=== PATIENT | female | born 1955 | race Hispanic/Latino ===

== ENCOUNTER 2020-05-07 07:40 | Inpatient (IN) | payer OTHER ==
[2020-05-07] MEDS ORDERED: Azithromycin 500 MG VIAL ONE ×2 (08:01→08:07)
[2020-05-07] MEDS ORDERED: Dexamethasone 10 MG/ML VIAL ONE (08:01)
[2020-05-07] MEDS ORDERED: Acetaminophen 500 MG TAB ONE (08:01)
[2020-05-07] MEDS ORDERED: Enoxaparin Sodium 30 MG/0.3 ML SYRINGE ONE (08:10)
[2020-05-07] MEDS ORDERED: Enoxaparin Sodium 40 MG/0.4 ML SYRINGE ONE (08:10)
[2020-05-07 08:11] LABS: #Eosinphils 0.1 thou/uL (0.0-0.7); #Lymphocytes 0.9 thou/uL (1.20-3.40); #Monocytes 0.7 thou/uL (0.11-0.59); %Basophils 0.2 % (0.0-1.0); %Lymphocytes 6.3 % (21.0-51.0); %Monocytes 4.8 % (0.0-10.0); %Neutrophils 87.6 % (42.0-75.0); Hemoglobin 12.6 g/dL (12.0-16.0); Mean Corpuscular HGB CONC 31.8 g/dL (32.0-36.0); Mean Corpuscular Hemoglobin 29.1 pg (27.0-31.0); Mean Corpuscular Volume 91.4 fL (78.0-98.0); Mean Platelet Volume 7.9 fL (7.4-10.4); Platelet Count 294 thou/uL (130-400); RBC Distribution Width 12.7 % (11.5-14.5); Red Blood Cell (RBC) Count 4.33 mill/uL (4.20-5.40); White Blood Cell (WBC) Count 13.7 thou/uL (4.8-10.8)
[2020-05-07 08:18] LABS: INR-International Normal Ratio 1.1; Prothrombin Time 14.4 sec (12.0-14.7)
[2020-05-07 08:34] LABS: ALT (SGPT) 22 U/L (8-55); AST (SGOT) 29 U/L (5-34); Albumin 3.2 g/dL (3.4-4.8); Alkaline Phosphatase 109 U/L (40-110); Anion Gap 18 mmol/L (10-20); BUN (Urea Nitrogen) 8 mg/dL (9.8-20.1); Bilirubin, Total 0.7 mg/dL (0.2-1.2); Calc. Creatinine Clearance 0 mL/min (70-130); Calcium 8.9 mg/dL (7.8-10.44); Carbon Dioxide 21 mmol/L (23-31); Chloride 101 mmol/L (98-107); Estimated GFR-MDRD 60; Globulin 4.8 g/dL (2.4-3.5); Glucose 284 mg/dL (80-115); Potassium 4.4 mmol/L (3.5-5.1); Sodium 136 mmol/L (136-145)
--- NOTE | 2020-05-07 08:38 | RAD ---
RADIOGRAPH CHEST 1 VIEW: DATE: 05/07/2020 TIME: 8:32 AM HISTORY: 64 year-old: Positive female presents with dyspnea COMPARISON: 12/04/2017 FINDINGS: New finding of heterogeneously diffuse severe bilateral mixed alveolar and interstitial infiltrates, mostly alveolar. No pneumothorax. IMPRESSION: Severe bilateral pneumonia
[2020-05-07 08:41] LABS: Actual Bicarbonate (HCO3a) 21.8 mEq/L (22-28); Analyzer IN Cardio ER; Base Excess (BEa) -2.5 mEq/L (-2.0 to +3.0); CO2 Tension 35.8 mmHg (35.0-45.0); Calcium, Ionized (arterial) 1.08 mmol/L (1.12-1.30); Carboxyhemoglobin (COHb) 0.3 gm% (0.0-3.0); Hemoglobin (Hb) 11.9 g/dL (12.0-16.0); Potassium - ABG Lab 4.15 mmol/L (3.70-5.30)
[2020-05-07 08:42] LABS: Puncture Site RBA
[2020-05-07] MEDS ORDERED: cefTRIAXone\\ROCEPHIN 1 GM VIAL ONE (09:31)
--- NOTE | 2020-05-07 09:44 | PDOC.HHP ---
Hospitalist HPI - History of Present Illness Fever, shortness of breath History of Present Illness: This is a 64-year-old female patient with no significant past medical history presenting with shortness of breath and fever. 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 She however had hoarseness in the voice and difficulty speaking so I could not get much history. Most of the history was taken from the notes and information from the nurse. She was diagnosed with COVID about a week ago however it appears a family was reluctant to get her to come to the hospital. However how she became more sick with shortness of breath eventually activated EMS and she was brought in for further evaluation. At presentation BP 213/115, pulse 151, respiration rate 45, temperature 99.1 saturating at 90 on 4 L. COVID was +3 days prior to presentation. Although initial chest x-ray was consistent with COVID with bilateral pneumonia. Concerns for possible PE re sulted in a CTA which was negative for any pulmonary embolism ABGpH 7.4, PO2 50, PCO2 35.8. BNP was 134, glucose 284, troponin 0 0.01, CRP 27.7, ESR 105, WBC 13.7, In the ED she was given Tylenol, dexamethasone 10 mg, azithromycin, enoxaparin, and ceftriaxone. Hospitalist team was consulted for admission. Hospitalist ROS - Review of Systems Respiratory: reports: cough, shortness of breath Other: Review of systems limited on account of patient having difficulty speaking. - Medication Medications: Kindly refer to ambulatory medication list Allergies: No known drug allergies Hospitalist History - Past Medical History Cardiac: reports: HTN Endocrine: reports: Diabetes - Social History Living Situation: With Family - Exam General Appearance: awake alert Heart: RRR, no murmur, no rubs, normal peripheral pulses Respiratory - other findings: Coarse breath sounds bilaterally. Gastrointestinal: soft, non-tender, non-distended, normal bowel sounds Extremities: no cyanosis, no clubbing, no edema Neurological: cranial nerve grossly intact, no weakness Psychiatric: A&O x 3 Hospitalist Results - Labs Result Diagrams: 05/13/20 03:14 05/13/20 03:14 Lab results: WBC 13.7 thou/uL (4.8-10.8) H 05/07/20 08:01 Hgb 12.6 g/dL (12.0-16.0) 05/07/20 08: Hct 39.6 % (36.0-47.0) 05/07/20 08: MCV 91.4 fL (78.0-98.0) 05/07/20 08: Plt Count 294 thou/uL (130-400) 05/07/20 08: Neutrophils % 87.6 % (42.0-75.0) H 05/07/20 08: ESR Westergren 105 mm/hr (Less than 30) H 05/07/20 08: ABG pH 7.40 (7.35-7.45) 05/07/20: ABG pCO2 35.8 mmHg (35.0-45.0) 05/07/20: ABG pO2 50.0 mmHg (> 80.0) L* 05/07/20 08:20 Sodium 136 mmol/L (136-145) 05/07/20 08: Potassium 4.4 mmol/L (3.5-5.1) 05/07/20 08: Chloride 101 mmol/L (98-107) 05/07/20 08: Carbon Dioxide 21 mmol/L (23-31) L 05/07/20 08:01 BUN 8 mg/dL (9.8-20.1) L 05/07/20 08:01 Creatinine 0.93 mg/dL (0.6-1.1) 05/07/20 08: Glucose 284 mg/dL (80-115) H 05/07/20 08:01 Calcium 8.9 mg/dL (7.8-10.44) 05/07/20 08: Total Bilirubin 0.7 mg/dL (0.2-1.2) 05/07/20 08: AST 29 U/L (5-34) 05/07/20 08:01 ALT 22 U/L (8-55) 05/07/20 08: Alkaline Phosphatase 109 U/L (40-110) 05/07/20 08:01 Troponin I 0.010 ng/mL (< 0.028) 05/07/20 08: C-Reactive Protein 27.76 mg/dL (= or < 0.5) H 05/07/20 08: B-Natriuretic Peptide 138.4 pg/mL (0-100) H 05/07/20 08:01 Serum Total Protein 8.0 g/dL (6.0-8.3) 05/07/20 08:01 Albumin 3.2 g/dL (3.4-4.8) L 05/07/20 08:01 Hospitalist H&P A/P - Plan Plan: 64-year-old female patient presenting with fever shortness of breath 3 days of therapy and tested positive for COVID. Given her increased oxygen requirement she was admitted to IMCU for closer monitoring. Acute hypoxic respiratory failure Secondary to cover pneumonia Received dexamethasonewe will continue Antibiotics was also continued for now Would require him to severe and continuing anticoagulation Consult pulmonology. Sepsis Secondary to COVID/pneumonia Lactate 3.5, leukocytosis 13.7, tachypnea and tachycardia She received a liter of normal saline in the ED We will continue gentle hydration given concerns for pulmonary congestion to worsen respiratory symptoms. We will continue antibiotics Trend lactic acid Blood cultures. Hypertensive urgency. Systolic blood pressure presentation was above 200. At my assessment around 170s. It is unclear what medication she is on at the moment. We will start on amlodipine PRN labetalol BP monitoring. VT prophylaxistherapeutic on
--- NOTE | 2020-05-07 10:39 | CT ---
CT ANGIOGRAM THORAX WITH CONTRAST: (CTA pulmonary angiogram) DATE: 05/07/2020 HISTORY: 64-year-old COVID-19 positive female presents with dyspnea and fever TECHNIQUE: IV injection of iodinated contrast. Scan acquisition timing attempted to coincide with iodinated contrast bolus reaching maximal density in pulmonary arteries. 3-D MIP reconstructions. FINDINGS: Severe, very extensive groundglass, mosaic, crazy paving, and consolidative infiltrates throughout bi lateral upper lobes, lower lobes, and middle lobe. Portions of bilateral upper lobes, right middle lobe, and small upper portion of superior segment of left lower lobe, are relatively spared. Otherwise, the rest of the lungs are severely diffusely involved. Trachea and bilateral mainstem bronchi are patent and clear. No pulmonary thromboembolism is identified. No thoracic aortic aneurysm or dissection. No pericardial effusion, pleural effusion, or pneumothorax. Multiple noncalcified mildly enlarged mediastinal lymph nodes. Bridging osteophytes throughout the visualized portions of lower cervical spine and much of thoracic spine, consistent with DISH. No compression fracture identified. IMPRESSION: 1) very extensive, severe bilateral infiltrates: Evidence for severe COVID-19 pneumonia. 2) no evidence of pulmonary thromboembolism.
[2020-05-07] MEDS ORDERED: Ondansetron ODT 4 MG TAB PO PRN (10:48)
[2020-05-07] MEDS ORDERED: Ondansetron PF 4 MG/2 ML Vial IVP PRN (10:48)
[2020-05-07] MEDS ORDERED: Rocuronium Bromide 10 MG/ML (10ML VIAL) ONE (11:58)
[2020-05-07] MEDS ORDERED: Iopamidol-370 76% 500 ML 1 ML ONE (13:33)
[2020-05-07] MEDS ORDERED: Magnesium 2 GM/50 ML 2 GM in Premix Bag 1 BAG IVPB SCH (14:30)
[2020-05-07] MEDS ORDERED: Diltiazem HCl 125 MG, Admixture Fee 1 EACH in Sodium Chloride 0.9% 100 ML IVPB SCH (14:30)
[2020-05-07] MEDS: Labetalol HCl 100 MG/20 ML VIAL SLOW IVP PRN ×2 (14:46→23:21)
[2020-05-07] MEDS ORDERED: REMDESIVIR (EUA) 200 MG in Sodium Chloride 0.9% 250 ML 210 ML IV SCH (17:00)
--- NOTE | 2020-05-07 17:29 | CON ---
DATE OF CONSULTATION: HISTORY OF PRESENT ILLNESS: This is a 64-year-old [place] female, who has a farooq positive test done about a week ago. She has been quarantined at home. She works at [employer], but because of the virus, she is staying at home. She then developed last night increasing shortness of breath, cough, fever, and chills. I spoke to the daughter at length, the patient speaks only [place]an. She is brought to the ER where x-ray shows diffuse pulmonary infiltrates. CAT scan confirmed the extensive pulmonary infiltrates as outlined. PAST MEDICAL HISTORY: Pertinent mainly for diabetes, hypertension. PREVIOUS SURGERIES: None. CHRONIC MEDICATIONS: From home, unknown at this time. ALLERGIES: NONE. REVIEW OF SYSTEMS: Otherwise, negative. PHYSICAL EXAMINATION: VITAL SIGNS: Sats are 100% on high-flow 40 L, pulse 80, blood pressure 130/80, and respiratory rate 18. CHEST: Bilateral rhonchi and crackles. CARDIAC: Sinus tach. ABDOMEN: Soft. NEUROLOGIC: She is alert, awake, and responsive. LABORATORY DATA: D-dimer is 20. PO2 was 50, pCO2 . Glucose 284. Lactic acid 3.5. BNP is normal. C-reactive protein is 27. Ferritin level pending. IMPRESSION: Respiratory failure, acute respiratory distress syndrome, farooq positive pneumonia, diabetes, possibly asthma. She takes an inhaler at home. I have restarted antibiotics, steroids, convalescent plasma, and remdesivir, as per the protocol. Prognosis is usually remains guarded. Lovenox as prescribed. Consultation note, 70 minutes, 50% direct patient care. Job ID: [id number]
[2020-05-07] MEDS: methylPREDNISolone Sod Succ 40 MG VIAL IVP SCH ×2 (17:44→23:11)
[2020-05-07] MEDS: Mometasone 200 MCG/Formoterol 5 MCG 120 PUFF INHALER INH SCH (20:14)
[2020-05-07] MEDS: Enoxaparin Sodium 80 MG/0.8 ML SYRINGE SC SCH (20:15)
[2020-05-07] MEDS: PROVENTIL INHALER 6.7 G (200 INHALATIONS) INH SCH (20:15)
[2020-05-07] MEDS: Famotidine/PF 20 mg/2ml Vial SLOW IVP SCH (20:16)
[2020-05-07] MEDS: Cefepime 1 GM in Sodium Chloride 0.9% 100 ML IVPB SCH (20:18)
[2020-05-07] MEDS: Acetaminophen 325 MG TAB PO PRN ×2 (20:18→23:37)
[2020-05-07] MEDS: HumaLOG 300 UNITS/3 ML VIAL SC PRN (20:20)
[2020-05-08] MEDS: PROVENTIL INHALER 6.7 G (200 INHALATIONS) INH SCH ×4 (01:51→18:28)
[2020-05-08] MEDS ORDERED: traMADol HCl 50 MG TAB PO SCH (03:00)
[2020-05-08 04:29] LABS: ALT (SGPT) 23 U/L (8-55); AST (SGOT) 32 U/L (5-34); Alkaline Phosphatase 104 U/L (40-110); Anion Gap 15 mmol/L (10-20); BUN (Urea Nitrogen) 15 mg/dL (9.8-20.1); Bilirubin, Total 0.4 mg/dL (0.2-1.2); Calc. Creatinine Clearance 63 mL/min (70-130); Calcium 8.2 mg/dL (7.8-10.44); Carbon Dioxide 20 mmol/L (23-31); Chloride 105 mmol/L (98-107); Estimated GFR-MDRD 57; Globulin 4.4 g/dL (2.4-3.5); Glucose 398 mg/dL (80-115); Potassium 4.1 mmol/L (3.5-5.1); Protein, Total 7.4 g/dL (6.0-8.3); Sodium 136 mmol/L (136-145)
[2020-05-08] MEDS: methylPREDNISolone Sod Succ 40 MG VIAL IVP SCH ×4 (06:01→23:33)
[2020-05-08] MEDS: Mometasone 200 MCG/Formoterol 5 MCG 120 PUFF INHALER INH SCH ×2 (06:04→18:28)
[2020-05-08] MEDS: HumaLOG 300 UNITS/3 ML VIAL SC PRN ×4 (06:05→20:08)
[2020-05-08] MEDS ORDERED: FLU VACC QS2020-21(65YR UP)/PF 240 MCG/0.7 ML SYRINGE IM ONE (09:00)
--- NOTE | 2020-05-08 09:17 | RAD ---
PORTABLE CHEST: HISTORY: CCU followup. Pneumonia. COMPARISON: 05/07/2020. FINDINGS: There are rather diffuse bilateral infiltrates. These do not appear significantly changed in appeara nce or extent. Loss of lung markings in the left apex of uncertain significance. Left pneumothorax is not excluded, although a definite pleural is not seen and this may be artifactual. Suggest close followup. IMPRESSION: Diffuse bilateral infiltrates are again noted without significant interval change. Lucency in the le ft apex is seen and small left apical pneumothorax is not excluded, although not confirmed. Followup recommended. Findings related to patient's nurse in the IMCU by phone at time of dictation. CODE CR POS: OFF
[2020-05-08] MEDS: Azithromycin 500 MG in Sodium Chloride 0.9% 250 ML 250 ML IVPB SCH (09:49)
[2020-05-08] MEDS: Enoxaparin Sodium 80 MG/0.8 ML SYRINGE SC SCH ×2 (09:50→20:12)
[2020-05-08] MEDS: Cefepime 1 GM in Sodium Chloride 0.9% 100 ML IVPB SCH ×2 (09:50→20:11)
[2020-05-08] MEDS: Famotidine/PF 20 mg/2ml Vial SLOW IVP SCH ×2 (09:50→20:10)
[2020-05-08] MEDS: Labetalol HCl 100 MG/20 ML VIAL SLOW IVP PRN ×5 (09:51→23:33)
--- NOTE | 2020-05-08 10:42 | PRG ---
DATE OF SERVICE: 05/08/2020 SUBJECTIVE: Awake, alert, responsive. OBJECTIVE: VITAL SIGNS: Pulse 88, blood pressure 179/88. At 90% FiO2, 60 L, saturations are 90% to 93%. CHEST: Bilateral rhonchi and crackles. CARDIAC: Normal S1, S2. No gallops. ABDOMEN: No masses. LABORATORY DATA: Unremarkable. IMPRESSION: 1. Respiratory failure, acute respiratory distress syndrome secondary farooq positive pneumonia. 2. Diabetes. PLAN: She is on remdesivir. She has convalescent plasma on board. X-ray still shows bilateral infiltrates, though clearly no worse. We will follow. Job ID: [id number]
--- NOTE | 2020-05-08 15:22 | PDOC.HOSPP ---
- Objective Vital Signs & Weight: Vital Signs (12 hours) Temp Pulse BP Pulse Ox 05/08/20 15:17 88 181/98 H 05/08/20 12:18 88 191/99 H 05/08/20 11:33 98.5 F 05/08/20 09:51 88 179/89 H 05/08/20 08:32 98.1 F 05/08/20 07:49 96 05/08/20 03:53 97.1 F L Weight Weight 156 lb Most Recent Monitor Data Heart Rate from ECG 83 NIBP 160/86 NIBP BP-Mean 110 Respiration from ECG 31 SpO2 90 I&O: 05/07/20 05/08/20 05/09/20 06:59 06:59 06:59 Intake Total 1870 Output Total 700 Balance 1170 Result Diagrams: 05/07/20 08:01 05/08/20 03:35 Additional Labs: Accuchecks 05/08/20 05/08/20 05/07/20 10:57 06:17 20:30 POC Glucose 312 H 369 H 311 H Hospitalist ROS - Medication Medications: Active Medications Generic Name Dose Route Start Last Admin Trade Name Freq PRN Reason Stop Dose Admin Acetaminophen 650 mg 05/07/20 19:41 05/07/20 23:37 Acetaminophen 325 Mg Tab PO 650 mg Q4H PRN Administration Headache/Fever or Pain Albuterol Sulfate 2 puff 05/07/20 19:00 05/08/20 15:03 Proventil Inhaler 6.7 G (200 Inhalations) INH 2 puff [id number] [place] Administration Enoxaparin Sodium 70 mg 05/07/20 21:00 05/08/20 09:50 Enoxaparin Sodium 80 Mg/0.8 Ml Syringe SC 70 mg 0900,2100 [place] Administration Famotidine 20 mg 05/07/20 21:00 05/08/20 09:50 Famotidine/Pf 20 Mg/2ml Vial SLOW IVP 20 mg BID [place] Administration Cefepime HCl 1 gm/ Sodium 100 mls @ 200 mls/hr 05/07/20 21:00 05/08/20 09:50 Chloride IVPB 100 mls Q12HR [place] Administration Azithromycin 500 mg/ Sodium 250 mls @ 250 mls/hr 05/08/20 08:00 05/08/20 09:49 Chloride IVPB 250 mls 0800 [place] Administration Ascorbic Acid 1,500 mg/ Sodium 53 mls @ 100 mls/hr 05/07/20 18:00 05/08/20 12:24 Chloride IVPB 05/11/20 18:01 53 mls Q6HR [place] Administration Diltiazem HCl 125 mg/ 125 mls @ 0 mls/hr 05/07/20 14:30 05/07/20 14:29 Miscellaneous Medication 1 IVPB 125 mls each/ Sodium Chloride INF [place] Administration Protocol As Directed Insulin Human Lispro 0 units 05/07/20 20:06 05/08/20 12:20 Humalog 300 Units/3 Ml Vial SC 5 unit .MILD SLIDING SCALE PRN Administration Mild Correctional Scale Insulin Human Lispro 0 units 05/07/20 20:06 05/07/20 20:20 Humalog 300 Units/3 Ml Vial SC 4 unit .BEDTIME SLIDING SC PRN Administration Bedtime Correctional Scale Labetalol HCl 10 mg 05/07/20 10:55 05/08/20 15:17 Labetalol Hcl 100 Mg/20 Ml Vial SLOW IVP 10 mg Q4H PRN Administration SBP Greater Than 180 Methylprednisolone Sodium Succinate 40 mg 05/07/20 18:00 05/08/20 12:24 Methylprednisolone Sod Succ 40 Mg Vial IVP 40 mg Q6HR [place] Administration Mometasone Furoate/Formoterol Fumar 2 puff 05/07/20 18:30 05/08/20 06:04 Mometasone 200 Mcg/Formoterol 5 Mcg 120 Puff Inhaler INH 2 puff BID-RT [place] Administration
[2020-05-08] MEDS: Acetaminophen 325 MG TAB PO PRN ×2 (15:35→20:10)
--- NOTE | 2020-05-08 15:45 | PDOC.HOSPP ---
- Subjective Subjective: Patient was seen examined at bedside. Patient remains on high flow. Patient status post convalescent plasma, she is on remdesivir. - Objective Vital Signs & Weight: Vital Signs (12 hours) Temp Pulse BP Pulse Ox 05/08/20 15:17 88 181/98 H 05/08/20 12:18 88 191/99 H 05/08/20 11:33 98.5 F 05/08/20 09:51 88 179/89 H 05/08/20 08:32 98.1 F 05/08/20 07:49 96 05/08/20 03:53 97.1 F L Weight Weight 156 lb Most Recent Monitor Data Heart Rate from ECG 83 NIBP 160/86 NIBP BP-Mean 110 Respiration from ECG 31 SpO2 90 I&O: 05/07/20 05/08/20 05/09/20 06:59 06:59 06:59 Intake Total 1870 Output Total 700 Balance 1170 Result Diagrams: 05/07/20 08:01 05/08/20 03:35 Additional Labs: Accuchecks 05/08/20 05/08/20 05/07/20 10:57 06:17 20:30 POC Glucose 312 H 369 H 311 H Radiology Reviewed by me: Yes EKG Reviewed by me: Yes Hospitalist ROS - Medication Medications: Active Medications Generic Name Dose Route Start Last Admin Trade Name Freq PRN Reason Stop Dose Admin Acetaminophen 650 mg 05/07/20 19:41 05/08/20 15:35 Acetaminophen 325 Mg Tab PO 650 mg Q4H PRN Administration Headache/Fever or Pain Albuterol Sulfate 2 puff 05/07/20 19:00 05/08/20 15:03 Proventil Inhaler 6.7 G (200 Inhalations) INH 2 puff [id number] [place] Administration Enoxaparin Sodium 70 mg 05/07/20 21:00 05/08/20 09:50 Enoxaparin Sodium 80 Mg/0.8 Ml Syringe SC 70 mg 0900,2100 [place] Administration Famotidine 20 mg 05/07/20 21:00 05/08/20 09:50 Famotidine/Pf 20 Mg/2ml Vial SLOW IVP 20 mg BID [place] Administration Cefepime HCl 1 gm/ Sodium 100 mls @ 200 mls/hr 05/07/20 21:00 05/08/20 09:50 Chloride IVPB 100 mls Q12HR [place] Administration Azithromycin 500 mg/ Sodium 250 mls @ 250 mls/hr 05/08/20 08:00 05/08/20 09:49 Chloride IVPB 250 mls 0800 [place] Administration Ascorbic Acid 1,500 mg/ Sodium 53 mls @ 100 mls/hr 05/07/20 18:00 05/08/20 12:24 Chloride IVPB 05/11/20 18:01 53 mls Q6HR [place] Administration Diltiazem HCl 125 mg/ 125 mls @ 0 mls/hr 05/07/20 14:30 05/07/20 14:29 Miscellaneous Medication 1 IVPB 125 mls each/ Sodium Chloride INF [place] Administration Protocol As Directed Insulin Human Lispro 0 units 05/07/20 20:06 05/08/20 12:20 Humalog 300 Units/3 Ml Vial SC 5 unit .MILD SLIDING SCALE PRN Administration Mild Correctional Scale Insulin Human Lispro 0 units 05/07/20 20:06 05/07/20 20:20 Humalog 300 Units/3 Ml Vial SC 4 unit .BEDTIME SLIDING SC PRN Administration Bedtime Correctional Scale Labetalol HCl 10 mg 05/07/20 10:55 05/08/20 15:17 Labetalol Hcl 100 Mg/20 Ml Vial SLOW IVP 10 mg Q4H PRN Administration SBP Greater Than 180 Methylprednisolone Sodium Succinate 40 mg 05/07/20 18:00 05/08/20 12:24 Methylprednisolone Sod Succ 40 Mg Vial IVP 40 mg Q6HR [place] Administration Mometasone Furoate/Formoterol Fumar 2 puff 05/07/20 18:30 05/08/20 06:04 Mometasone 200 Mcg/Formoterol 5 Mcg 120 Puff Inhaler INH 2 puff BID-RT [place] Administration - Exam General Appearance: NAD Eye: PERRL ENT: normocephalic atraumatic Neck: supple Heart: RRR Respiratory: rhonchi Gastrointestinal: soft Skin: normal turgor Musculoskeletal: normal tone Psychiatric: normal affect, normal behavior, A&O x 3 Hosp A/P - Plan This is a 64 years old pleasant female, who has significant past medical history of diabetes type 2, hypertension, who was diagnosed with Covid about weeks ago presented to the ED with worsening dyspnea and hypoxia Acute hypoxicrespiratory failure-secondary to COVID-19 --cont HiFlo, wean as tolerated --cont empiric IV abx, steroid. Remdesivir. Status post convalescent plasma --Supportive care, appreciate pulmonology input COVID-19 pneumonia --Management as above Sepsis, present on admission --Secondary to Covid pneumonia --Continue IV antibiotic, follow blood culture Diabetes type 2 --cont Glipizide. Hold Metformin --add Lantus bedtime, ISS Hypertensive urgency --cont Ramipril, add Coreg for BP and rate control --prn Vasotec and Labetalol prn (shortage on hydralazine) Dyslipidemia --resume statin Transient episode of SVT --resolved. d/t above. Add Coreg for rate controlled DVT ppx: Lovenox therapeutic GI ppx: Pepcid Code Status: Full code Anticipated Dispo: Home when medically stable.
[2020-05-08] MEDS ORDERED: ALPRAZolam 0.25 MG TAB PO PRN (15:46)
[2020-05-08] MEDS ORDERED: Enalaprilat Dihydrate 2.5 MG in Dextrose 5% in Water 50 ML IVPB PRN (16:11)
[2020-05-08] MEDS: REMDESIVIR (EUA) 100 MG in Sodium Chloride 0.9% 250 ML 230 ML IV SCH (17:15)
[2020-05-08] MEDS: Carvedilol 6.25 MG TAB PO SCH (17:17)
--- NOTE | 2020-05-08 19:27 | CON ---
DATE OF CONSULTATION: HISTORY: Bhakti Watts is a 64-year-old female, [place]ian-speaking only, who currently is in COVID isolation. She was apparently diagnosed as having COVID a week ago and had continued increased problems with shortness of breath, but the family was very reluctant to bring her to the hospital. Eventually, EMS was called and on arrival her blood pressure was 213/115, pulse was 151, respirations 45, and O2 saturation of 90% on 4 L. Chest x-ray showed bilateral pneumonia. In looking at her vital signs in the emergency room, she was treated with increasing amounts of oxygen. Her heart rate gradually slowed. There was no abrupt decrease in her heart rate. In the emergency room, she was given dexamethasone, azithromycin, enoxaparin, and ceftriaxone. She underwent chest CTA which was negative for pulmonary embolism. PAST MEDICAL HISTORY: Diabetes, anxiety, hypercholesterolemia, and hypertension. MEDICATIONS: 1. Alprazolam 0.25 b.i.d. p.r.n. 2. Aspirin 81 daily. 3. Atorvastatin daily. 4. Glipizide 1 tablet b.i.d. 5. Metformin 1000 mg b.i.d. 6. Naproxen 500 mg q.12 hours. 7. Nitrofurantoin q.8 hours. 8. Accupril daily. PHYSICAL EXAMINATION: VITAL SIGNS: Blood pressure 160/86; pulse of 83, sinus rhythm on the monitor. Physical examination was deferred due to COVID positive. LABORATORY: EKG-initial EKG revealed sinus tachycardia. There is an incomplete right bundle-branch block. White count 13,700, hemoglobin 12.6, hematocrit 39.6, and platelets 294,000. D-dimer greater than 20.0. PH 7.40, pCO2 of 35.8, and PO2 of 50.0. Sodium 136, potassium 4.1, chloride 105, carbon dioxide 20, BUN 15, creatinine 0.98, and glucose 398. Troponin I x1 is normal. Chest x-ray reveals bilateral lung infiltrates. IMPRESSION: 1. COVID with evidence of pneumonia and hypoxemia. 2. Probable sinus tachycardia at presentation. Even though this is somewhat of a high rate for someone of this age group, she was significantly hypoxic and hypertensive. In looking at her vital signs, there was gradual slowing of her heart rate without abrupt drop in heart rate that would be consistent with an arrhythmia that then converted. At the present time, she is in sinus rhythm. 3. Hypertension. 4. Diabetes. 5. Hypercholesterolemia. PLAN: At the present time, I do not feel any further cardiac evaluation is warranted, just to monitor her to watch her rate. Job ID: [id number]
[2020-05-08] MEDS: Insulin Glargine 20 UNITS in Pre-Filled Syringe 1 EACH SC SCH (20:07)
[2020-05-08] MEDS: Atorvastatin Calcium 10 MG TAB PO SCH (20:11)
[2020-05-08 22:53] LABS: Actual Bicarbonate (HCO3a) 23.4 mEq/L (22-28); Base Excess (BEa) -1.4 mEq/L (-2.0 to +3.0); CO2 Tension 39.7 mmHg (35.0-45.0); Calcium, Ionized (arterial) 1.11 mmol/L (1.12-1.30); Carboxyhemoglobin (COHb) 0.2 gm% (0.0-3.0); pH, Arterial 7.39 (7.35-7.45)
[2020-05-08 22:57] LABS: ALV-art Gradient 556.175 mmHg (0-20); O2 Tension (PaO2), arterial 35.9 mmHg (> 80.0); Puncture Site RRA
[2020-05-08] MEDS ORDERED: Racepinephrine 2.25% 0.5 ML NEB ONE (23:39)
[2020-05-08] MEDS ORDERED: Ketorolac Tromethamine 30 MG/ML VIAL ONE (23:40)
[2020-05-08] MEDS ORDERED: Ketorolac Tromethamine 30 MG/ML VIAL IVP SCH (23:45)
[2020-05-09] MEDS: PROVENTIL INHALER 6.7 G (200 INHALATIONS) INH SCH ×4 (01:16→18:27)
[2020-05-09 04:14] LABS: #Monocytes 0.7 thou/uL (0.11-0.59); #Neutrophils 15.2 thou/uL (1.40-6.50); %Eosinophils 0.2 % (0.0-10.0); %Lymphocytes 5.7 % (21.0-51.0); Mean Corpuscular HGB CONC 32.1 g/dL (32.0-36.0); Mean Corpuscular Hemoglobin 29.4 pg (27.0-31.0); Mean Corpuscular Volume 91.5 fL (78.0-98.0); Mean Platelet Volume 8.4 fL (7.4-10.4); Platelet Count 299 thou/uL (130-400); Red Blood Cell (RBC) Count 3.73 mill/uL (4.20-5.40); White Blood Cell (WBC) Count 16.9 thou/uL (4.8-10.8)
[2020-05-09 04:23] LABS: Anion Gap 15 mmol/L (10-20); BUN (Urea Nitrogen) 26 mg/dL (9.8-20.1); CRP (Inflammatory) 13.29 mg/dL (= or < 0.5); Calc. Creatinine Clearance 75 mL/min (70-130); Calcium 7.8 mg/dL (7.8-10.44); Carbon Dioxide 20 mmol/L (23-31); Chloride 106 mmol/L (98-107); Estimated GFR-MDRD 70; Glucose 288 mg/dL (80-115); Potassium 5.2 mmol/L (3.5-5.1); Sodium 136 mmol/L (136-145)
[2020-05-09] MEDS: Labetalol HCl 100 MG/20 ML VIAL SLOW IVP PRN ×2 (04:36→07:30)
[2020-05-09] MEDS ORDERED: Albumin 25% 25 GM/100 ML BOT IVPB SCH (06:00)
--- NOTE | 2020-05-09 06:06 | PDOC.BPN ---
- Brief Progress Note Encounter Date: 05/09/20 Encounter Time: 05:13 Rapid response was called on the patient because patient became unresponsive and developed agonal breathing. Nurse also reported patient became severely hypertensive. She gave a dose of IV labetalol which caused her to develop bradycardia with heart rate in the 40s. Patient was initially placed on BiPAP due to worsening respiratory respiratory failure and desaturation. Patient seen with a systolic blood pressure of 230 and a heart rate of 137. She was intubated for agonal breathing after which her blood pressure dropped to systolic 80, heart rate still in the 120s. Patient given a bolus of 1 L normal saline. Diagnosis: Worsening respiratory failure. Cardiogenic and septic shock. Plan: Mechanical ventilation. Start albumin infusion. Check troponin. Post intubation chest x-ray reviewed, ET tube in good position. Formal chest x- ray results pending. Patient is on anticoagulation given severely elevated d-dimer. Dr. Madera informed. Critical care time: 64 minutes.
[2020-05-09] MEDS: HumaLOG 300 UNITS/3 ML VIAL SC PRN ×4 (06:12→20:57)
[2020-05-09] MEDS: Mometasone 200 MCG/Formoterol 5 MCG 120 PUFF INHALER INH SCH ×2 (07:10→18:30)
[2020-05-09 07:17] LABS: Actual Bicarbonate (HCO3a) 21.4 mEq/L (22-28); Base Excess (BEa) -5.1 mEq/L (-2.0 to +3.0); CO2 Tension 45.7 mmHg (35.0-45.0); Calcium, Ionized (arterial) 1.12 mmol/L (1.12-1.30); Carboxyhemoglobin (COHb) 0.3 gm% (0.0-3.0); Hemoglobin (Hb) 12.1 g/dL (12.0-16.0); O2 Tension (PaO2), arterial 152.3 mmHg (> 80.0); Potassium - ABG Lab 4.57 mmol/L (3.70-5.30); pH, Arterial 7.29 (7.35-7.45)
[2020-05-09 07:24] LABS: ALV-art Gradient 503.575 mmHg (0-20); Puncture Site RR
[2020-05-09] MEDS ORDERED: Azithromycin 250 MG TAB ONE (07:25)
[2020-05-09] MEDS: Propofol 1,000 MG/100 ML VIAL IV PRN (07:28)
[2020-05-09] MEDS: Carvedilol 6.25 MG TAB PO SCH ×3 (07:29→17:21)
[2020-05-09] MEDS: glipiZIDE 10 MG TAB PO SCH ×2 (07:29→16:04)
[2020-05-09] MEDS: methylPREDNISolone Sod Succ 40 MG VIAL IVP SCH ×3 (07:29→17:32)
[2020-05-09] MEDS ORDERED: Morphine 2 MG/ML VIAL SLOW IVP PRN (07:30)
[2020-05-09] MEDS ORDERED: Propofol BOLUS 1,000 MG/100 ML VIAL IV PRN (07:30)
[2020-05-09] MEDS ORDERED: Fentanyl BOLUS 250 ML IVPB PRN (07:30)
[2020-05-09] MEDS: Azithromycin 500 MG in Sodium Chloride 0.9% 250 ML 250 ML IVPB SCH (08:10)
--- NOTE | 2020-05-09 09:17 | RAD ---
CHEST 1 VIEW: Date: 05/09/2020 HISTORY: Dyspnea. COMPARISON: Radiograph from prior day. FINDINGS: Extensive air space opacities throughout the lungs. No pneumothorax. No significant effusion. Heart s ize is enlarged. IMPRESSION: Severe findings of COVID-19 pneumonia. POS: OFF
--- NOTE | 2020-05-09 09:29 | RAD ---
CHEST 1 VIEW: Date: 05/09/2020 HISTORY: Intubated patient. COMPARISON: Radiograph same date. FINDINGS: Patient intubated with endotracheal tube tip above the tomas 2.7 cm. Patchy air space opacities thro ughout the lungs. Enteric tube tip below diaphragm, although out of field of view. No pneumothorax. No significant effu julieta. IMPRESSION: Satisfactory location of the enteric and endotracheal tubes. POS: OFF
[2020-05-09] MEDS: Lorazepam 2 MG/ML VIAL SLOW IVP PRN (09:31)
[2020-05-09] MEDS: fentaNYL Citrate/PF 2,000 MCG in Sodium Chloride 0.9% 60 ML IV SCH (09:52)
[2020-05-09] MEDS: Lisinopril 20 MG TAB PO SCH (09:54)
[2020-05-09] MEDS: Aspirin 81 mg Enteric Coated Tablet PO SCH (09:54)
[2020-05-09] MEDS: Enoxaparin Sodium 80 MG/0.8 ML SYRINGE SC SCH ×2 (09:55→20:03)
[2020-05-09] MEDS: Cefepime 1 GM in Sodium Chloride 0.9% 100 ML IVPB SCH ×2 (09:55→20:04)
[2020-05-09] MEDS: Famotidine/PF 20 mg/2ml Vial SLOW IVP SCH ×2 (09:55→20:05)
[2020-05-09] MEDS: Vecuronium 10 MG VIAL IVP PRN ×3 (10:18→18:12)
--- NOTE | 2020-05-09 15:58 | PDOC.HOSPP ---
- Subjective Subjective: Overnight events noted. Patient was intubated earlier this morning. Patient was seen examined. Discussed with nursing staff. I also updated son, Ned on the phone. - Objective Vital Signs & Weight: Vital Signs (12 hours) Temp Pulse Resp BP Pulse Ox 05/09/20 13:30 67 127/70 05/09/20 12:00 24 H 05/09/20 10:38 106 H 05/09/20 09:54 216/111 H 05/09/20 09:00 97.0 F L 05/09/20 08:00 100 05/09/20 07:30 121 H 05/09/20 07:29 216/111 H 05/09/20 07:05 121 H 05/09/20 04:36 82 216/111 H 05/09/20 04:00 97.5 F L Weight Admit Weight 156 lb Weight 156 lb Most Recent Monitor Data Heart Rate from ECG 68 NIBP 119/63 NIBP BP-Mean 81 Respiration from ECG 24 SpO2 99 I&O: 05/08/20 05/09/20 05/10/20 06:59 06:59 06:59 Intake Total 1870 520 570 Output Total 700 850 360 Balance 1170 -330 210 Result Diagrams: 05/09/20 03:41 05/09/20 03:41 Additional Labs: Accuchecks 05/09/20 05/09/20 05/08/20 12:57 05:18 19:26 POC Glucose 263 H 265 H 307 H 05/08/20 16:46 POC Glucose 295 H Radiology Reviewed by me: Yes EKG Reviewed by me: Yes Hospitalist ROS - Medication Medications: Active Medications Generic Name Dose Route Start Last Admin Trade Name Freq PRN Reason Stop Dose Admin Acetaminophen 650 mg 05/07/20 19:41 05/08/20 20:10 Acetaminophen 325 Mg Tab PO 650 mg Q4H PRN Administration Headache/Fever or Pain Albuterol Sulfate 2 puff 05/07/20 19:00 05/09/20 13:29 Proventil Inhaler 6.7 G (200 Inhalations) INH 2 puff [id number] [place] Administration Alprazolam 0.25 mg 05/08/20 15:46 05/08/20 20:11 Alprazolam 0.25 Mg Tab PO 0.25 mg BIDPRN PRN Administration Anxiety Aspirin 81 mg 05/09/20 09:00 05/09/20 09:54 Aspirin 81 Mg Enteric Coated Tablet PO 81 mg DAILY [place] Administration Atorvastatin Calcium 10 mg 05/08/20 21:00 05/08/20 20:11 Atorvastatin Calcium 10 Mg Tab PO 10 mg HS [place] Administration Carvedilol 12.5 mg 05/09/20 08:00 05/09/20 09:54 Carvedilol 6.25 Mg Tab PO 6.25 mg BID-WM [place] Administration Enoxaparin Sodium 70 mg 05/07/20 21:00 05/09/20 09:55 Enoxaparin Sodium 80 Mg/0.8 Ml Syringe SC 70 mg 0900,2100 [place] Administration Famotidine 20 mg 05/07/20 21:00 05/09/20 09:55 Famotidine/Pf 20 Mg/2ml Vial SLOW IVP 20 mg BID [place] Administration Glipizide 10 mg 05/09/20 07:30 05/09/20 07:29 Glipizide 10 Mg Tab PO 10 mg BID-AC [place] Administration Cefepime HCl 1 gm/ Sodium 100 mls @ 200 mls/hr 05/07/20 21:00 05/09/20 09:55 Chloride IVPB 100 mls Q12HR [place] Administration Azithromycin 500 mg/ Sodium 250 mls @ 250 mls/hr 05/08/20 08:00 05/09/20 08:10 Chloride IVPB 250 mls 0800 [place] Administration Ascorbic Acid 1,500 mg/ Sodium 53 mls @ 100 mls/hr 05/07/20 18:00 05/09/20 13:41 Chloride IVPB 05/11/20 18:01 53 mls Q6HR [place] Administration Remdesivir 100 mg/ Sodium 250 mls @ 250 mls/hr 05/08/20 17:00 05/08/20 17:15 Chloride IV 05/11/20 17:59 250 mls Q24H [place] Administration Insulin Glargine 20 units/ 0.2 mls @ 0 mls/hr 05/08/20 21:00 05/08/20 20:07 Miscellaneous Medication SC 0.2 mls HS [place] Administration Fentanyl Citrate 2,000 mcg/ 100 mls @ 0 mls/hr 05/09/20 07:30 05/09/20 09:52 Sodium Chloride IV 11/12/20 07:30 100 mls INF [place] Administration Protocol Per Protocol Insulin Human Lispro 0 units 05/07/20 20:06 05/09/20 13:02 Humalog 300 Units/3 Ml Vial SC 4 unit .MILD SLIDING SCALE PRN Administration Mild Correctional Scale Insulin Human Lispro 0 units 05/07/20 20:06 05/08/20 20:08 Humalog 300 Units/3 Ml Vial SC 4 unit .BEDTIME SLIDING SC PRN Administration Bedtime Correctional Scale Labetalol HCl 10 mg 05/07/20 10:55 05/09/20 07:30 Labetalol Hcl 100 Mg/20 Ml Vial SLOW IVP 10 mg Q4H PRN Administration SBP Greater Than 180 Lisinopril 20 mg 05/09/20 09:00 05/09/20 09:54 Lisinopril 20 Mg Tab PO 20 mg DAILY [place] Administration Lorazepam 2 mg 05/09/20 07:30 05/09/20 09:31 Lorazepam 2 Mg/Ml Vial SLOW IVP 06/08/20 07:30 2 mg Q1H PRN Administration Breakthrough agitation Methylprednisolone Sodium Succinate 40 mg 05/07/20 18:00 05/09/20 13:03 Methylprednisolone Sod Succ 40 Mg Vial IVP 40 mg Q6HR [place] Administration Mometasone Furoate/Formoterol Fumar 2 puff 05/07/20 18:30 05/09/20 07:10 Mometasone 200 Mcg/Formoterol 5 Mcg 120 Puff Inhaler INH 2 puff BID-RT [place] Administration Propofol 1,000 mg 05/09/20 07:30 05/09/20 07:28 Propofol 1,000 Mg/100 Ml Vial IV 06/08/20 07:30 1,000 mg INF PRN Administration TO ACHIEVE GOAL RASS Protocol Sodium Chloride 10 ml 05/08/20 21:00 05/09/20 09:56 Flush - Normal Saline 10 Ml Syringe IVF 10 ml Q12HR [place] Administration Vecuronium [place] 10 mg 05/09/20 09:52 05/09/20 12:44 Vecuronium 10 Mg Vial IVP 10 mg Q1H PRN Administration PRONING/VENT COMPLIANCE - Exam General - other findings: intubated and sedated Eye: PERRL ENT: normocephalic atraumatic Neck: supple Heart: RRR Respiratory: rhonchi Gastrointestinal: soft Extremities: no cyanosis Skin: normal turgor Neurological - other findings: intubated and sedated Hosp A/P - Plan This is a 64 years old pleasant female, who has significant past medical history of diabetes type 2, hypertension, who was diagnosed with Covid- 19 about a week ago presented to the ED with worsening dyspnea and hypoxia Acute hypoxicrespiratory failure-secondary to COVID-19 --pt remains intubated --cont empiric IV abx, steroid. Remdesivir. Status post convalescent plasma --Supportive care, appreciate pulmonology input COVID-19 pneumonia --Management as above Sepsis, present on admission --Secondary to Covid pneumonia --Continue IV antibiotic, follow blood culture Diabetes type 2 --cont Glipizide. Hold Metformin --add Lantus bedtime, ISS Hypertensive urgency --cont Ramipril, add Coreg for BP and rate control --prn Vasotec and Labetalol prn (shortage on hydralazine) Dyslipidemia --resume statin Transient episode of SVT --resolved. d/t above. Add Coreg for rate controlled DVT ppx: Lovenox therapeutic GI ppx: Pepcid Code Status: Full code Anticipated Dispo: Home when medically stable. I updated pt's son, Ned on the phone daily.
[2020-05-09] MEDS: REMDESIVIR (EUA) 100 MG in Sodium Chloride 0.9% 250 ML 230 ML IV SCH (17:21)
[2020-05-09] MEDS: Insulin Glargine 20 UNITS in Pre-Filled Syringe 1 EACH SC SCH (20:03)
[2020-05-09] MEDS: Atorvastatin Calcium 10 MG TAB PO SCH (20:05)
--- NOTE | 2020-05-09 20:17 | PRG ---
DATE OF SERVICE: 05/09/2020 SUBJECTIVE: Ms. Watts was evaluated early this morning. Overnight, she became more hypoxic, required BiPAP and then required intubation. A code was called to facilitate rapid intubation. There was reportedly no loss of vital signs. Post intubation, she was in no distress. She required sedation as expected. She was initially hypertensive, but with initiation of sedation, she improved. OBJECTIVE: LUNGS: Remarkable for coarse breath sounds. HEART: Regular rhythm. ABDOMEN: Soft. LABORATORY DATA: White count 16.9, hemoglobin 11, platelets 299. Sodium 136, potassium 5.2, chloride 106, bicarb 20, BUN 26, creatinine 0.82. The pH is 7.29, pCO2 is 45, and pO2 is 152. IMPRESSION: 1. COVID pneumonia with respiratory failure requiring intubation. 2. Obesity. 3. Deconditioning. 4. Poorly-controlled diabetes. PLAN: Continue supportive care. CRITICAL CARE TIME: 30 minutes. Job ID: [id number]
[2020-05-10] MEDS: methylPREDNISolone Sod Succ 40 MG VIAL IVP SCH ×5 (00:15→23:25)
[2020-05-10] MEDS: PROVENTIL INHALER 6.7 G (200 INHALATIONS) INH SCH ×4 (01:22→18:39)
[2020-05-10 02:21] LABS: Troponin I 0.025 ng/mL (< 0.028)
[2020-05-10] MEDS: Vecuronium 10 MG VIAL IVP PRN ×4 (04:22→21:30)
[2020-05-10] MEDS: Propofol 1,000 MG/100 ML VIAL IV PRN ×3 (04:22→23:28)
[2020-05-10] MEDS: fentaNYL Citrate/PF 2,000 MCG in Sodium Chloride 0.9% 60 ML IV SCH (05:42)
[2020-05-10] MEDS: HumaLOG 300 UNITS/3 ML VIAL SC PRN ×5 (05:43→23:50)
[2020-05-10] MEDS: Mometasone 200 MCG/Formoterol 5 MCG 120 PUFF INHALER INH SCH ×2 (07:38→18:39)
[2020-05-10 07:51] LABS: Actual Bicarbonate (HCO3a) 23.5 mEq/L (22-28); Base Excess (BEa) 0.1 mEq/L (-2.0 to +3.0); CO2 Tension 33.6 mmHg (35.0-45.0); Calcium, Ionized (arterial) 1.06 mmol/L (1.12-1.30); Carboxyhemoglobin (COHb) 0.3 gm% (0.0-3.0); Hemoglobin (Hb) 10.7 g/dL (12.0-16.0); Potassium - ABG Lab 4.23 mmol/L (3.70-5.30); pH, Arterial 7.46 (7.35-7.45)
[2020-05-10 07:52] LABS: O2 Tension (PaO2), arterial 46.4 mmHg (> 80.0); Puncture Site RR
[2020-05-10] MEDS: glipiZIDE 10 MG TAB PO SCH ×2 (08:13→16:27)
--- NOTE | 2020-05-10 08:25 | RAD ---
Chest one view HISTORY: Intubated. Respiratory failure. Follow-up. COMPARISON: 05/09/2020. FINDINGS: Cardiac silhouette is magnified by projection. Pulmonary vasculature remains engorged. Mediastinum is midline. Lines and tubes unchanged in position. Blunting of the left lateral costophrenic angle is unchanged in appearance from the prior study. Patc hy ill-defined areas of groundglass opacity throughout each lung are similar less dense than on the previous exam. No evidence of pneumothorax. IMPRESSION : Slight interval radiographic improvement in patchy bilateral infiltrates. Small amount of left pleural fluid and other findings are otherwise stable.
[2020-05-10] MEDS: Famotidine/PF 20 mg/2ml Vial SLOW IVP SCH ×2 (08:30→20:38)
[2020-05-10] MEDS: Carvedilol 6.25 MG TAB PO SCH ×2 (08:30→17:08)
[2020-05-10] MEDS: Enoxaparin Sodium 80 MG/0.8 ML SYRINGE SC SCH ×2 (08:30→20:37)
[2020-05-10] MEDS: Lisinopril 20 MG TAB PO SCH (08:30)
[2020-05-10] MEDS: Cefepime 1 GM in Sodium Chloride 0.9% 100 ML IVPB SCH ×2 (08:30→20:37)
[2020-05-10] MEDS: Aspirin 81 mg Enteric Coated Tablet PO SCH (08:30)
[2020-05-10 08:31] LABS: Anion Gap 12 mmol/L (10-20); BUN (Urea Nitrogen) 34 mg/dL (9.8-20.1); CRP (Inflammatory) 11.41 mg/dL (= or < 0.5); Calc. Creatinine Clearance 62 mL/min (70-130); Calcium 7.4 mg/dL (7.8-10.44); Carbon Dioxide 23 mmol/L (23-31); Chloride 109 mmol/L (98-107); Estimated GFR-MDRD 56; Glucose 278 mg/dL (80-115); Hemoglobin 10.7 g/dL (12.0-16.0); Mean Corpuscular HGB CONC 32.1 g/dL (32.0-36.0); Mean Corpuscular Hemoglobin 29.5 pg (27.0-31.0); Mean Corpuscular Volume 92.1 fL (78.0-98.0); Mean Platelet Volume 8.6 fL (7.4-10.4); Platelet Count 296 thou/uL (130-400); Potassium 4.4 mmol/L (3.5-5.1); RBC Distribution Width 13.1 % (11.5-14.5); Red Blood Cell (RBC) Count 3.61 mill/uL (4.20-5.40); Sodium 140 mmol/L (136-145); White Blood Cell (WBC) Count 12.7 thou/uL (4.8-10.8)
[2020-05-10 08:36] LABS: Troponin I 0.028 ng/mL (< 0.028)
[2020-05-10 08:41] LABS: #Basophils 0.1 thou/uL (0.0-0.2); #Lymphocytes 0.9 thou/uL (1.20-3.40); #Monocytes 0.3 thou/uL (0.11-0.59); #Neutrophils 11.4 thou/uL (1.40-6.50); %Basophils 0.4 % (0.0-1.0); %Eosinophils 0.3 % (0.0-10.0); %Lymphocytes 7.1 % (21.0-51.0); %Monocytes 2.5 % (0.0-10.0); %Neutrophils 89.7 % (42.0-75.0); Band 4 % (5-11); Lymphocytes 2 % (21-51); MDiff Complete? YES; Metamyelocyte 1 % (0-0); Monocytes 2 % (0-10); Neutrophil 91 % (42-75); Nucleated RBC 1 % (0); Platelet Morphology Comment Appears Adequate; RBC Morphology Normal
[2020-05-10] MEDS: Azithromycin 500 MG in Sodium Chloride 0.9% 250 ML 250 ML IVPB SCH (09:00)
--- NOTE | 2020-05-10 09:13 | PRG ---
DATE OF SERVICE: 05/10/2020 SUBJECTIVE: This morning, intubated in the vent, sedated. OBJECTIVE: VITAL SIGNS: Temperature is 99, blood pressure 139/65, sats are 94% on 40%, PEEP of 10, respiratory rate 24. CHEST: Crackles. No wheezing. CARDIAC: Normal S1, S2. No gallops. ABDOMEN: Soft. LABORATORY DATA: White count 12,000, H and H 10 and 30, platelet count 296. PO2 is 46, [id number] ph 7.43 on rate of 24. peep10 fio2 40% IMPRESSION: Respiratory failure, acute respiratory distress syndrome, farooq positive pneumonia, and diabetes. PLAN: Vent is being adjusted. She is on remdesivir, antibiotics, steroids, supportive care. She is not weanable at this stage. One-half hour of critical care time. Job ID: [id number] MTDD
[2020-05-10 09:37] LABS: Troponin I 0.017 ng/mL (< 0.028)
[2020-05-10 14:40] LABS: ALT (SGPT) 47 U/L (8-55); AST (SGOT) 44 U/L (5-34); Albumin 2.5 g/dL (3.4-4.8); Alkaline Phosphatase 94 U/L (40-110); Bilirubin, Direct 0.3 mg/dL (0.1-0.3); Bilirubin, Total 0.5 mg/dL (0.2-1.2); Protein, Total 6.2 g/dL (6.0-8.3)
[2020-05-10 14:44] LABS: Troponin I 0.012 ng/mL (< 0.028)
--- NOTE | 2020-05-10 14:58 | PDOC.HOSPP ---
- Subjective Subjective: Pt is in prone position. Pul is following help with vent mgt. no significant changes - Objective Vital Signs & Weight: Vital Signs (12 hours) Temp Pulse Resp BP 05/10/20 13:25 57 L 148/73 H 05/10/20 12:00 20 05/10/20 11:00 98.0 F 05/10/20 10:27 68 99/60 05/10/20 10:00 20 05/10/20 08:30 135/65 05/10/20 08:00 98.6 F 24 H 05/10/20 07:39 62 146/69 H 05/10/20 06:00 24 H 05/10/20 04:27 66 05/10/20 04:00 99.1 F 24 H Weight Admit Weight 156 lb Weight 156 lb Most Recent Monitor Data Heart Rate from ECG 57 NIBP 148/73 NIBP BP-Mean 98 Respiration from ECG 20 SpO2 100 I&O: 05/09/20 05/10/20 05/11/20 06:59 06:59 06:59 Intake Total 520 1928.1 570 Output Total 850 998 365 Balance -330 930.1 205 Result Diagrams: 05/10/20 08:05 05/10/20 08:05 Additional Labs: Accuchecks 05/10/20 05/10/20 05/10/20 11:20 09:06 05:15 POC Glucose 270 H 258 H 243 H 05/09/20 05/09/20 20:23 17:40 POC Glucose 221 H 245 H Radiology Reviewed by me: Yes EKG Reviewed by me: Yes Hospitalist ROS - Medication Medications: Active Medications Generic Name Dose Route Start Last Admin Trade Name Freq PRN Reason Stop Dose Admin Acetaminophen 650 mg 05/07/20 19:41 05/08/20 20:10 Acetaminophen 325 Mg Tab PO 650 mg Q4H PRN Administration Headache/Fever or Pain Albuterol Sulfate 2 puff 05/07/20 19:00 05/10/20 13:24 Proventil Inhaler 6.7 G (200 Inhalations) INH 2 puff [id number] [place] Administration Alprazolam 0.25 mg 05/08/20 15:46 05/08/20 20:11 Alprazolam 0.25 Mg Tab PO 0.25 mg BIDPRN PRN Administration Anxiety Aspirin 81 mg 05/09/20 09:00 05/10/20 08:30 Aspirin 81 Mg Enteric Coated Tablet PO 81 mg DAILY [place] Administration Atorvastatin Calcium 10 mg 05/08/20 21:00 05/09/20 20:05 Atorvastatin Calcium 10 Mg Tab PO 10 mg HS [place] Administration Carvedilol 12.5 mg 05/09/20 08:00 05/10/20 08:30 Carvedilol 6.25 Mg Tab PO 12.5 mg BID-WM [place] Administration Enoxaparin Sodium 70 mg 05/07/20 21:00 05/10/20 08:30 Enoxaparin Sodium 80 Mg/0.8 Ml Syringe SC 70 mg 0900,2100 [place] Administration Famotidine 20 mg 05/07/20 21:00 05/10/20 08:30 Famotidine/Pf 20 Mg/2ml Vial SLOW IVP 20 mg BID [place] Administration Glipizide 10 mg 05/09/20 07:30 05/10/20 08:13 Glipizide 10 Mg Tab PO 10 mg BID-AC [place] Administration Cefepime HCl 1 gm/ Sodium 100 mls @ 200 mls/hr 05/07/20 21:00 05/10/20 08:30 Chloride IVPB 100 mls Q12HR [place] Administration Azithromycin 500 mg/ Sodium 250 mls @ 250 mls/hr 05/08/20 08:00 05/10/20 09:00 Chloride IVPB 250 mls 0800 [place] Administration Ascorbic Acid 1,500 mg/ Sodium 53 mls @ 100 mls/hr 05/07/20 18:00 05/10/20 11:40 Chloride IVPB 05/11/20 18:01 53 mls Q6HR [place] Administration Remdesivir 100 mg/ Sodium 250 mls @ 250 mls/hr 05/08/20 17:00 05/09/20 17:21 Chloride IV 05/11/20 17:59 250 mls Q24H [place] Administration Insulin Glargine 20 units/ 0.2 mls @ 0 mls/hr 05/08/20 21:00 05/09/20 20:03 Miscellaneous Medication SC 0.2 mls HS [place] Administration Fentanyl Citrate 2,000 mcg/ 100 mls @ 0 mls/hr 05/09/20 07:30 05/10/20 05:42 Sodium Chloride IV 11/12/20 07:30 100 mls INF [place] Administration Protocol Per Protocol Insulin Human Lispro 0 units 05/07/20 20:06 05/10/20 11:25 Humalog 300 Units/3 Ml Vial SC 4 unit .MILD SLIDING SCALE PRN Administration Mild Correctional Scale Insulin Human Lispro 0 units 05/07/20 20:06 05/09/20 20:57 Humalog 300 Units/3 Ml Vial SC 2 unit .BEDTIME SLIDING SC PRN Administration Bedtime Correctional Scale Labetalol HCl 10 mg 05/07/20 10:55 05/09/20 07:30 Labetalol Hcl 100 Mg/20 Ml Vial SLOW IVP 10 mg Q4H PRN Administration SBP Greater Than 180 Lisinopril 20 mg 05/09/20 09:00 05/10/20 08:30 Lisinopril 20 Mg Tab PO 20 mg DAILY [place] Administration Lorazepam 2 mg 05/09/20 07:30 05/09/20 09:31 Lorazepam 2 Mg/Ml Vial SLOW IVP 06/08/20 07:30 2 mg Q1H PRN Administration Breakthrough agitation Methylprednisolone Sodium Succinate 40 mg 05/07/20 18:00 05/10/20 11:33 Methylprednisolone Sod Succ 40 Mg Vial IVP 40 mg Q6HR [place] Administration Mometasone Furoate/Formoterol Fumar 2 puff 05/07/20 18:30 05/10/20 07:38 Mometasone 200 Mcg/Formoterol 5 Mcg 120 Puff Inhaler INH 2 puff BID-RT [place] Administration Propofol 1,000 mg 05/09/20 07:30 05/10/20 04:22 Propofol 1,000 Mg/100 Ml Vial IV 06/08/20 07:30 1,000 mg INF PRN Administration TO ACHIEVE GOAL RASS Protocol Sodium Chloride 10 ml 05/08/20 21:00 05/10/20 08:16 Flush - Normal Saline 10 Ml Syringe IVF 10 ml Q12HR [place] Administration Vecuronium [place] 10 mg 05/09/20 09:52 05/10/20 11:00 Vecuronium 10 Mg Vial IVP 10 mg Q1H PRN Administration PRONING/VENT COMPLIANCE Hosp A/P - Plan - Exam General - other findings: intubated and sedated Eye: PERRL ENT: normocephalic atraumatic Neck: supple Heart: RRR Respiratory: rhonchi Gastrointestinal: soft Extremities: no cyanosis Skin: normal turgor Neurological - other findings: intubated and sedated Assessment/Plan: This is a 64 years old pleasant female, who has significant past medical history of diabetes type 2, hypertension, who was diagnosed with Covid- 19 about a week ago presented to the ED with worsening dyspnea and hypoxia Acute hypoxicrespiratory failure - secondary to COVID-19 --pt remains intubated --cont empiric IV abx, steroid. Remdesivir. Status post convalescent plasma --Supportive cares, appreciate pulmonology input COVID-19 pneumonia --Management as above Sepsis, present on admission --Secondary to Covid pneumonia --Continue IV antibiotics, follow blood culture - no growth Diabetes type 2 --cont Glipizide. Hold Metformin --add Lantus bedtime, ISS Hypertensive urgency --cont Ramipril, add Coreg for BP and rate control --prn Vasotec and Labetalol prn (shortage on hydralazine) Dyslipidemia --resume statin Transient episode of SVT --resolved. d/t above. Add Coreg for rate controlled DVT ppx: Lovenox therapeutic GI ppx: Pepcid Code Status: Full code Anticipated Dispo: Home when medically stable. I updated pt's son, Ned on the phone daily.
[2020-05-10] MEDS ORDERED: DOPamine 400 MG/D5W 250 ML 250 ML IVPB PRN (16:05)
[2020-05-10 18:02] LABS: Troponin I 0.013 ng/mL (< 0.028)
[2020-05-10] MEDS: REMDESIVIR (EUA) 100 MG in Sodium Chloride 0.9% 250 ML 230 ML IV SCH (18:07)
[2020-05-10] MEDS: Atorvastatin Calcium 10 MG TAB PO SCH (20:37)
[2020-05-10] MEDS: Insulin Glargine 20 UNITS in Pre-Filled Syringe 1 EACH SC SCH (20:38)
[2020-05-10 22:01] LABS: Troponin I Less than 0.010 ng/mL (< 0.028)
[2020-05-11] MEDS: PROVENTIL INHALER 6.7 G (200 INHALATIONS) INH SCH ×4 (01:56→19:37)
[2020-05-11] MEDS: fentaNYL Citrate/PF 2,000 MCG in Sodium Chloride 0.9% 60 ML IV SCH ×2 (03:32→19:24)
[2020-05-11 04:19] LABS: #Lymphocytes 0.8 thou/uL (1.20-3.40); #Monocytes 0.4 thou/uL (0.11-0.59); #Neutrophils 10.7 thou/uL (1.40-6.50); %Eosinophils 0.4 % (0.0-10.0); %Lymphocytes 6.8 % (21.0-51.0); %Monocytes 3.2 % (0.0-10.0); %Neutrophils 89.6 % (42.0-75.0); Mean Corpuscular HGB CONC 32.9 g/dL (32.0-36.0); Mean Corpuscular Hemoglobin 30.5 pg (27.0-31.0); Mean Corpuscular Volume 92.8 fL (78.0-98.0); Mean Platelet Volume 8.8 fL (7.4-10.4); Platelet Count 335 thou/uL (130-400); RBC Distribution Width 13.2 % (11.5-14.5); Red Blood Cell (RBC) Count 3.61 mill/uL (4.20-5.40)
[2020-05-11] MEDS: Vecuronium 10 MG VIAL IVP PRN ×4 (04:24→23:54)
[2020-05-11 04:42] LABS: Anion Gap 13 mmol/L (10-20); BUN (Urea Nitrogen) 34 mg/dL (9.8-20.1); CRP (Inflammatory) 6.57 mg/dL (= or < 0.5); Calc. Creatinine Clearance 73 mL/min (70-130); Calcium 7.5 mg/dL (7.8-10.44); Carbon Dioxide 22 mmol/L (23-31); Chloride 112 mmol/L (98-107); Estimated GFR-MDRD 67; Glucose 307 mg/dL (80-115); Potassium 4.3 mmol/L (3.5-5.1); Sodium 143 mmol/L (136-145)
[2020-05-11] MEDS: methylPREDNISolone Sod Succ 40 MG VIAL IVP SCH ×4 (06:11→23:54)
[2020-05-11] MEDS: HumaLOG 300 UNITS/3 ML VIAL SC PRN ×4 (06:21→21:06)
[2020-05-11] MEDS: Mometasone 200 MCG/Formoterol 5 MCG 120 PUFF INHALER INH SCH ×2 (07:11→19:37)
[2020-05-11 07:25] LABS: Actual Bicarbonate (HCO3a) 24.3 mEq/L (22-28); Base Excess (BEa) 0.2 mEq/L (-2.0 to +3.0); CO2 Tension 37.7 mmHg (35.0-45.0); Calcium, Ionized (arterial) 1.08 mmol/L (1.12-1.30); Carboxyhemoglobin (COHb) 0.5 gm% (0.0-3.0); Hemoglobin (Hb) 11.5 g/dL (12.0-16.0); O2 Tension (PaO2), arterial 61.8 mmHg (> 80.0); Potassium - ABG Lab 4.27 mmol/L (3.70-5.30); pH, Arterial 7.43 (7.35-7.45)
[2020-05-11 07:26] LABS: ALV-art Gradient 176.275 mmHg (0-20); Puncture Site RR
[2020-05-11] MEDS: Azithromycin 500 MG in Sodium Chloride 0.9% 250 ML 250 ML IVPB SCH ×2 (07:43→19:38)
[2020-05-11] MEDS: glipiZIDE 10 MG TAB PO SCH ×2 (07:44→16:12)
[2020-05-11] MEDS: Aspirin 81 mg Enteric Coated Tablet PO SCH (07:44)
[2020-05-11 08:02] LABS: ALT (SGPT) 48 U/L (8-55); AST (SGOT) 32 U/L (5-34); Albumin 2.5 g/dL (3.4-4.8); Alkaline Phosphatase 87 U/L (40-110); Bilirubin, Direct 0.3 mg/dL (0.1-0.3); Bilirubin, Total 0.4 mg/dL (0.2-1.2); Protein, Total 6.4 g/dL (6.0-8.3)
[2020-05-11] MEDS: Famotidine/PF 20 mg/2ml Vial SLOW IVP SCH ×2 (08:31→20:38)
[2020-05-11] MEDS: Enoxaparin Sodium 80 MG/0.8 ML SYRINGE SC SCH ×2 (08:31→20:37)
[2020-05-11] MEDS: Lisinopril 20 MG TAB PO SCH (08:31)
[2020-05-11] MEDS: Cefepime 1 GM in Sodium Chloride 0.9% 100 ML IVPB SCH ×2 (08:31→20:37)
[2020-05-11] MEDS: Insulin Glargine 20 UNITS in Pre-Filled Syringe SC SCH (09:22)
[2020-05-11] MEDS: Carvedilol 6.25 MG TAB PO SCH ×3 (09:22→23:36)
[2020-05-11] MEDS: hydrALAZINE 25 MG TAB PO SCH ×3 (09:40→20:38)
--- NOTE | 2020-05-11 10:07 | PRG ---
DATE OF SERVICE: 05/11/2020 SUBJECTIVE: Bhakti Watts remains intubated in the vent and sedated. She has been prone for 3 days. OBJECTIVE: VITAL SIGNS: Heart rate is 51, blood pressure 187/88, saturations are 99%, respirations 20. I's and O's have been consistently even. CHEST: No wheezing. No crackles. CARDIAC: Normal S1. No gallops. ABDOMEN: No masses. LABORATORY DATA: White count is 12,000, hemoglobin and hematocrit are 11 and 33, and platelet count 335. Lytes are normal. Blood gases; PO2 is 61, pCO2 . ASSESSMENT AND PLAN: Respiratory failure, acute respiratory distress syndrome, farooq positive pneumonia, supraventricular tachycardia. PLAN: Add hydralazine since she is getting bradycardic on the Coreg. Hopefully, we can start it on a low-dose. Otherwise, nutrition, PT, supportive care. Continue high-dose steroids. One-half hour of critical care time. Job ID: [id number]
[2020-05-11] MEDS: Propofol 1,000 MG/100 ML VIAL IV PRN ×2 (11:53→20:40)
[2020-05-11] MEDS: Lorazepam 2 MG/ML VIAL SLOW IVP PRN (12:15)
--- NOTE | 2020-05-11 16:10 | PDOC.HOSPP ---
- Subjective Subjective: Patient was seen examined at bedside. Patient remained intubated. No significant change. I have updated her son on due to phone. Blood pressure was noted elevated. Patient was started on hydralazine, as she did not tolerate Coreg d/t bradycardia - Objective Vital Signs & Weight: Vital Signs (12 hours) Temp Pulse Resp BP Pulse Ox 05/11/20 15:10 57 L 175/76 H 05/11/20 14:00 16 05/11/20 13:30 179/80 H 05/11/20 12:31 62 05/11/20 12:00 16 05/11/20 11:01 59 L 117/83 05/11/20 11:00 97.1 F L 05/11/20 10:00 20 05/11/20 08:31 187/86 H 05/11/20 08:10 98 05/11/20 08:00 97.2 F L 20 05/11/20 07:11 53 L 199/81 H 05/11/20 06:00 20 Weight Admit Weight 156 lb Weight 156 lb Most Recent Monitor Data Heart Rate from ECG 57 NIBP 174/73 NIBP BP-Mean 106 Respiration from ECG 16 SpO2 99 I&O: 05/10/20 05/11/20 05/12/20 06:59 06:59 06:59 Intake Total 1928.1 2091 610 Output Total 998 1385 455 Balance 930.1 706 155 Result Diagrams: 05/11/20 03:50 05/11/20 03:50 Additional Labs: Accuchecks 05/11/20 05/11/20 05/10/20 12:37 06:15 23:34 POC Glucose 249 H 278 H 275 H 05/10/20 16:43 POC Glucose 258 H Radiology Reviewed by me: Yes EKG Reviewed by me: Yes Hospitalist ROS - Medication Medications: Active Medications Generic Name Dose Route Start Last Admin Trade Name Freq PRN Reason Stop Dose Admin Acetaminophen 650 mg 05/07/20 19:41 05/08/20 20:10 Acetaminophen 325 Mg Tab PO 650 mg Q4H PRN Administration Headache/Fever or Pain Albuterol Sulfate 2 puff 05/07/20 19:00 05/11/20 12:33 Proventil Inhaler 6.7 G (200 Inhalations) INH 2 puff [id number] [place] Administration Alprazolam 0.25 mg 05/08/20 15:46 05/08/20 20:11 Alprazolam 0.25 Mg Tab PO 0.25 mg BIDPRN PRN Administration Anxiety Aspirin 81 mg 05/09/20 09:00 05/11/20 07:44 Aspirin 81 Mg Enteric Coated Tablet PO 81 mg DAILY [place] Administration Atorvastatin Calcium 10 mg 05/08/20 21:00 05/10/20 20:37 Atorvastatin Calcium 10 Mg Tab PO 10 mg HS [place] Administration Carvedilol 6.25 mg 05/11/20 13:00 05/11/20 13:30 Carvedilol 6.25 Mg Tab PO 05/11/20 22:01 6.25 mg 1300,2200 [place] Administration Enoxaparin Sodium 70 mg 05/07/20 21:00 05/11/20 08:31 Enoxaparin Sodium 80 Mg/0.8 Ml Syringe SC 70 mg 0900,2100 [place] Administration Famotidine 20 mg 05/07/20 21:00 05/11/20 08:31 Famotidine/Pf 20 Mg/2ml Vial SLOW IVP 20 mg BID [place] Administration Glipizide 10 mg 05/09/20 07:30 05/11/20 07:44 Glipizide 10 Mg Tab PO 10 mg BID-AC [place] Administration Hydralazine HCl 25 mg 05/11/20 09:00 05/11/20 09:40 Hydralazine 25 Mg Tab PO 25 mg TID [place] Administration Cefepime HCl 1 gm/ Sodium 100 mls @ 200 mls/hr 05/07/20 21:00 05/11/20 08:31 Chloride IVPB 100 mls Q12HR [place] Administration Azithromycin 500 mg/ Sodium 250 mls @ 250 mls/hr 05/08/20 08:00 05/11/20 07:43 Chloride IVPB 250 mls 0800 [place] Administration Ascorbic Acid 1,500 mg/ Sodium 53 mls @ 100 mls/hr 05/07/20 18:00 05/11/20 11:42 Chloride IVPB 05/11/20 18:01 53 mls Q6HR [place] Administration Remdesivir 100 mg/ Sodium 250 mls @ 250 mls/hr 05/08/20 17:00 05/10/20 18:07 Chloride IV 05/11/20 17:59 250 mls Q24H [place] Administration Insulin Glargine 20 units/ 0.2 mls @ 0 mls/hr 05/08/20 21:00 05/10/20 20:38 Miscellaneous Medication SC 0.2 mls HS [place] Administration Fentanyl Citrate 2,000 mcg/ 100 mls @ 0 mls/hr 05/09/20 07:30 05/11/20 03:32 Sodium Chloride IV 06/08/20 07:30 100 mls INF [place] Administration Protocol Per Protocol Insulin Glargine 20 units/ 0.2 mls @ 0 mls/hr 05/11/20 09:00 05/11/20 09:22 Miscellaneous Medication SC 0.2 mls QAM [place] Administration Dopamine HCl/Dextrose 250 mls @ 7.961 mls/hr 05/10/20 16:05 05/10/20 20:37 Dopamine 400 Mg/D5w 250 Ml IVPB 250 mls INF PRN Administration .BRADYCARDIA 40s PRN Protocol 3 MCG/KG/MIN Insulin Human Lispro 0 units 05/07/20 20:06 05/11/20 06:21 Humalog 300 Units/3 Ml Vial SC 4 unit .MILD SLIDING SCALE PRN Administration Mild Correctional Scale Insulin Human Lispro 0 units 05/07/20 20:06 05/09/20 20:57 Humalog 300 Units/3 Ml Vial SC 2 unit .BEDTIME SLIDING SC PRN Administration Bedtime Correctional Scale Labetalol HCl 10 mg 05/07/20 10:55 05/09/20 07:30 Labetalol Hcl 100 Mg/20 Ml Vial SLOW IVP 10 mg Q4H PRN Administration SBP Greater Than 180 Lisinopril 20 mg 05/09/20 09:00 05/11/20 08:31 Lisinopril 20 Mg Tab PO 20 mg DAILY [place] Administration Lorazepam 2 mg 05/09/20 07:30 05/11/20 12:15 Lorazepam 2 Mg/Ml Vial SLOW IVP 06/08/20 07:30 2 mg Q1H PRN Administration Breakthrough agitation Methylprednisolone Sodium Succinate 40 mg 05/07/20 18:00 05/11/20 11:42 Methylprednisolone Sod Succ 40 Mg Vial IVP 40 mg Q6HR [place] Administration Mometasone Furoate/Formoterol Fumar 2 puff 05/07/20 18:30 05/11/20 07:11 Mometasone 200 Mcg/Formoterol 5 Mcg 120 Puff Inhaler INH 2 puff BID-RT [place] Administration Propofol 1,000 mg 05/09/20 07:30 05/11/20 11:53 Propofol 1,000 Mg/100 Ml Vial IV 06/08/20 07:30 1,000 mg INF PRN Administration TO ACHIEVE GOAL RASS Protocol Sodium Chloride 10 ml 05/08/20 21:00 05/11/20 07:48 Flush - Normal Saline 10 Ml Syringe IVF 10 ml Q12HR [place] Administration Vecuronium [place] 10 mg 05/09/20 09:52 05/11/20 12:15 Vecuronium 10 Mg Vial IVP 10 mg Q1H PRN Administration PRONING/VENT COMPLIANCE - Exam General - other findings: Patient sedated and intubated Eye: PERRL ENT: normocephalic atraumatic Neck: supple Heart: RRR Respiratory: rales Gastrointestinal: soft Extremities: 1+ LE edema Skin: normal turgor Musculoskeletal: normal tone Hosp A/P - Plan Assessment/Plan: This is a 64 years old pleasant female, who has significant past medical history of diabetes type 2, hypertension, who was diagnosed with Covid- 19 about a week ago presented to the ED with worsening dyspnea and hypoxia Acute hypoxicrespiratory failure - secondary to COVID-19 --pt remains intubated --cont empiric IV abx, steroid. Remdesivir. Status post convalescent plasma --Supportive cares, appreciate pulmonology input --start tube feeding tomorrow after proning COVID-19 pneumonia --Management as above Sepsis, present on admission --Secondary to Covid pneumonia --Continue IV antibiotics, follow blood culture - no growth Diabetes type 2 --cont Glipizide. Hold Metformin --add Lantus bedtime, ISS Hypertensive urgency --cont Ramipril, add Coreg for BP and rate control --prn Vasotec and Labetalol prn (shortage on hydralazine) Dyslipidemia --resume statin Transient episode of SVT --resolved. d/t above. Add Coreg for rate controlled DVT ppx: Lovenox therapeutic GI ppx: Pepcid Code Status: Full code Anticipated Dispo: Home when medically stable. I updated pt's son, Ned on the phone daily.
[2020-05-11] MEDS ORDERED: Carvedilol 6.25 MG TAB PO SCH (17:00)
[2020-05-11] MEDS ORDERED: Sterile Water 0 ML ONE (17:13)
[2020-05-11] MEDS: REMDESIVIR (EUA) 100 MG in Sodium Chloride 0.9% 250 ML 230 ML IV SCH (18:11)
[2020-05-11] MEDS: Atorvastatin Calcium 10 MG TAB PO SCH (20:37)
[2020-05-11] MEDS: Insulin Glargine 20 UNITS in Pre-Filled Syringe 1 EACH SC SCH (20:38)
[2020-05-11] MEDS ORDERED: Sterile Water 10 ML ONE ×2 (23:50→23:52)
[2020-05-12] MEDS: HumaLOG 300 UNITS/3 ML VIAL SC PRN ×5 (01:27→23:55)
[2020-05-12] MEDS: PROVENTIL INHALER 6.7 G (200 INHALATIONS) INH SCH ×5 (02:10→23:49)
[2020-05-12 04:53] LABS: Band 9 % (5-11); Hemoglobin 10.4 g/dL (12.0-16.0); Lymphocytes 5 % (21-51); MDiff Complete? YES; Mean Corpuscular HGB CONC 33.6 g/dL (32.0-36.0); Mean Corpuscular Hemoglobin 30.5 pg (27.0-31.0); Mean Corpuscular Volume 90.9 fL (78.0-98.0); Mean Platelet Volume 9.5 fL (7.4-10.4); Metamyelocyte 1 % (0-0); Monocytes 4 % (0-10); Neutrophil 81 % (42-75); Platelet Count 359 thou/uL (130-400); Platelet Morphology Comment Appears Adequate; RBC Distribution Width 13.5 % (11.5-14.5); Red Blood Cell (RBC) Count 3.39 mill/uL (4.20-5.40)
[2020-05-12 05:36] LABS: Chloride 111 mmol/L (98-107); Potassium 6.1 mmol/L (3.5-5.1); Sodium 141 mmol/L (136-145)
[2020-05-12 05:37] LABS: Calcium 7.5 mg/dL (7.8-10.44); Glucose 282 mg/dL (80-115)
[2020-05-12 05:39] LABS: Carbon Dioxide 21 mmol/L (23-31)
[2020-05-12 05:41] LABS: Calc. Creatinine Clearance 82 mL/min (70-130); Estimated GFR-MDRD 73
[2020-05-12 05:42] LABS: BUN (Urea Nitrogen) 28 mg/dL (9.8-20.1)
[2020-05-12 05:43] LABS: Anion Gap 15 mmol/L (10-20)
[2020-05-12] MEDS: methylPREDNISolone Sod Succ 40 MG VIAL IVP SCH ×4 (06:22→23:36)
[2020-05-12] MEDS: Propofol 1,000 MG/100 ML VIAL IV PRN ×3 (07:09→21:10)
[2020-05-12] MEDS: Mometasone 200 MCG/Formoterol 5 MCG 120 PUFF INHALER INH SCH ×2 (07:22→18:19)
[2020-05-12] MEDS: Carvedilol 6.25 MG TAB PO SCH ×2 (08:00→18:03)
[2020-05-12] MEDS: Azithromycin 500 MG in Sodium Chloride 0.9% 250 ML 250 ML IVPB SCH ×2 (08:00→11:04)
--- NOTE | 2020-05-12 08:05 | RAD ---
XR Chest 1 View Portable History: Ventilated patient Comparison: Radiograph 2 days prior Findings: Endotracheal tube tip above the tomas 4.6 cm. Enteric tube tip below diaphragm although ou t of field of view. Slight worsening lung aeration with extensive airspace opacities. Moderate pleural effusions. Impression: 1. Satisfactory location of the endotracheal tube. 2. Enteric tube tip below diaphragm although out of field of view. 3. Slight worsening lung aeration.
[2020-05-12 09:37] LABS: Anion Gap 14 mmol/L (10-20); BUN (Urea Nitrogen) 29 mg/dL (9.8-20.1); Calc. Creatinine Clearance 82 mL/min (70-130); Calcium 7.6 mg/dL (7.8-10.44); Carbon Dioxide 22 mmol/L (23-31); Chloride 112 mmol/L (98-107); Estimated GFR-MDRD 73; Glucose 282 mg/dL (80-115); Potassium 4.7 mmol/L (3.5-5.1); Sodium 143 mmol/L (136-145)
--- NOTE | 2020-05-12 09:59 | PRG ---
DATE OF SERVICE: 05/12/2020 SUBJECTIVE: Bhakti Watts remains intubated in the vent and sedated. She was prone for 3 days. OBJECTIVE: VITAL SIGNS: Temperature is 97, pulse is 49. She was given some Coreg. Blood pressure is 156/80, respiratory rate 20, and sats 100%. CHEST: No wheezing. No crackles. CARDIAC: Normal S1 and S2. No gallops. ABDOMEN: Soft. LABORATORY DATA: Glucose is 282, potassium 6.1 and could be hemolyzed. White count 11,000, hemoglobin and hematocrit of 10 and 30, platelet count is normal. X-ray still shows bilateral infiltrates. ASSESSMENT AND PLAN: [place] positive pneumonia, respiratory failure, acute respiratory distress syndrome, diabetes, supraventricular tachycardia. She received remdesivir, plasma, and high-dose steroids. Avoid proning for the next few days. Continue supportive care, otherwise her nutrition PT. One-half hour of critical care time. Job ID: [id number]
[2020-05-12] MEDS: hydrALAZINE 25 MG TAB PO SCH ×3 (10:16→20:40)
[2020-05-12] MEDS: glipiZIDE 10 MG TAB PO SCH ×2 (10:16→18:03)
[2020-05-12] MEDS: Aspirin 81 mg Enteric Coated Tablet PO SCH (10:16)
[2020-05-12] MEDS: Famotidine/PF 20 mg/2ml Vial SLOW IVP SCH ×2 (10:16→20:45)
[2020-05-12] MEDS: Cefepime 1 GM in Sodium Chloride 0.9% 100 ML IVPB SCH ×2 (10:17→20:45)
[2020-05-12] MEDS: Enoxaparin Sodium 80 MG/0.8 ML SYRINGE SC SCH ×2 (10:17→20:40)
[2020-05-12] MEDS: Insulin Glargine 20 UNITS in Pre-Filled Syringe SC SCH (10:19)
[2020-05-12] MEDS: Sodium Chloride 0.9% 1,000 ML IV SCH (10:21)
[2020-05-12] MEDS ORDERED: Pancrelipase DR 12,000 1 CAP FS PRN (10:45)
[2020-05-12] MEDS ORDERED: Sodium Bicarbonate Tab 325 MG TAB PER TUBE PRN (10:45)
[2020-05-12] MEDS: fentaNYL Citrate/PF 2,000 MCG in Sodium Chloride 0.9% 60 ML IV SCH (13:32)
[2020-05-12] MEDS: Lorazepam 2 MG/ML VIAL SLOW IVP PRN ×2 (13:35→23:41)
--- NOTE | 2020-05-12 18:06 | PDOC.HOSPP ---
- Subjective Subjective: remains intubated. start TF. no significant changes. Pt was seen and examined. - Objective Vital Signs & Weight: Vital Signs (12 hours) Temp Pulse Resp BP Pulse Ox 05/12/20 15:51 62 130/63 05/12/20 14:09 67 05/12/20 14:00 26 H 05/12/20 12:00 98.3 F 16 05/12/20 10:16 53 L 05/12/20 10:05 52 L 05/12/20 10:00 16 05/12/20 08:00 97.9 F 16 152/72 H 100 05/12/20 07:23 49 L Weight Admit Weight 156 lb Weight 163 lb 2.273 oz Most Recent Monitor Data Heart Rate from ECG 64 NIBP 149/68 NIBP BP-Mean 95 Respiration from ECG 32 SpO2 99 I&O: 05/11/20 05/12/20 05/13/20 06:59 06:59 06:59 Intake Total 2091 1566.5 184.1 Output Total 1385 1525 295 Balance 706 41.5 -110.9 Result Diagrams: 05/12/20 03:51 05/12/20 08:30 Additional Labs: Accuchecks 05/12/20 05/12/20 05/11/20 12:06 01:19 20:44 POC Glucose 226 H 283 H 284 H 05/10/20 20:57 POC Glucose 270 H Radiology Reviewed by me: Yes EKG Reviewed by me: Yes Hospitalist ROS - Medication Medications: Active Medications Generic Name Dose Route Start Last Admin Trade Name Freq PRN Reason Stop Dose Admin Acetaminophen 650 mg 05/07/20 19:41 05/08/20 20:10 Acetaminophen 325 Mg Tab PO 650 mg Q4H PRN Administration Headache/Fever or Pain Albuterol Sulfate 2 puff 05/07/20 19:00 05/12/20 13:04 Proventil Inhaler 6.7 G (200 Inhalations) INH 2 puff [id number] [place] Administration Alprazolam 0.25 mg 05/08/20 15:46 05/08/20 20:11 Alprazolam 0.25 Mg Tab PO 0.25 mg BIDPRN PRN Administration Anxiety Aspirin 81 mg 05/09/20 09:00 05/12/20 10:16 Aspirin 81 Mg Enteric Coated Tablet PO 81 mg DAILY [place] Administration Atorvastatin Calcium 10 mg 05/08/20 21:00 05/11/20 20:37 Atorvastatin Calcium 10 Mg Tab PO 10 mg HS [place] Administration Carvedilol 6.25 mg 05/12/20 08:00 05/12/20 08:00 Carvedilol 6.25 Mg Tab PO Not Given BID-WM [place] Enoxaparin Sodium 70 mg 05/07/20 21:00 05/12/20 10:17 Enoxaparin Sodium 80 Mg/0.8 Ml Syringe SC 70 mg 0900,2100 [place] Administration Famotidine 20 mg 05/07/20 21:00 05/12/20 10:16 Famotidine/Pf 20 Mg/2ml Vial SLOW IVP 20 mg BID [place] Administration Glipizide 10 mg 05/09/20 07:30 05/12/20 10:16 Glipizide 10 Mg Tab PO 10 mg BID-AC [place] Administration Hydralazine HCl 25 mg 05/11/20 09:00 05/12/20 15:51 Hydralazine 25 Mg Tab PO 25 mg TID [place] Administration Cefepime HCl 1 gm/ Sodium 100 mls @ 200 mls/hr 05/07/20 21:00 05/12/20 10:17 Chloride IVPB 100 mls Q12HR [place] Administration Azithromycin 500 mg/ Sodium 250 mls @ 250 mls/hr 05/08/20 08:00 05/12/20 11:04 Chloride IVPB 250 mls 0800 [place] Administration Insulin Glargine 20 units/ 0.2 mls @ 0 mls/hr 05/08/20 21:00 05/11/20 20:38 Miscellaneous Medication SC 0.2 mls HS [place] Administration Fentanyl Citrate 2,000 mcg/ 100 mls @ 0 mls/hr 05/09/20 07:30 05/12/20 13:32 Sodium Chloride IV 06/08/20 07:30 100 mls INF [place] Administration Protocol Per Protocol Insulin Glargine 20 units/ 0.2 mls @ 0 mls/hr 05/11/20 09:00 05/12/20 10:19 Miscellaneous Medication SC 0.2 mls QAM [place] Administration Dopamine HCl/Dextrose 250 mls @ 7.961 mls/hr 05/10/20 16:05 05/10/20 20:37 Dopamine 400 Mg/D5w 250 Ml IVPB 250 mls INF PRN Administration .BRADYCARDIA 40s PRN Protocol 3 MCG/KG/MIN Sodium Chloride 1,000 mls @ 50 mls/hr 05/12/20 09:30 05/12/20 10:21 Normal Saline 0.9% IV 1,000 mls .Q20H [place] Administration Insulin Human Lispro 0 units 05/07/20 20:06 05/12/20 05:54 Humalog 300 Units/3 Ml Vial SC 4 unit .MILD SLIDING SCALE PRN Administration Mild Correctional Scale Insulin Human Lispro 0 units 05/07/20 20:06 05/11/20 21:06 Humalog 300 Units/3 Ml Vial SC 3 unit .BEDTIME SLIDING SC PRN Administration Bedtime Correctional Scale Labetalol HCl 10 mg 05/07/20 10:55 05/09/20 07:30 Labetalol Hcl 100 Mg/20 Ml Vial SLOW IVP 10 mg Q4H PRN Administration SBP Greater Than 180 Lorazepam 2 mg 05/09/20 07:30 05/12/20 13:35 Lorazepam 2 Mg/Ml Vial SLOW IVP 06/08/20 07:30 2 mg Q1H PRN Administration Breakthrough agitation Methylprednisolone Sodium Succinate 40 mg 05/07/20 18:00 05/12/20 11:39 Methylprednisolone Sod Succ 40 Mg Vial IVP 40 mg Q6HR [place] Administration Mometasone Furoate/Formoterol Fumar 2 puff 05/07/20 18:30 05/12/20 07:22 Mometasone 200 Mcg/Formoterol 5 Mcg 120 Puff Inhaler INH 2 puff BID-RT [place] Administration Propofol 1,000 mg 05/09/20 07:30 05/12/20 11:47 Propofol 1,000 Mg/100 Ml Vial IV 06/08/20 07:30 1,000 mg INF PRN Administration TO ACHIEVE GOAL RASS Protocol Sodium Chloride 10 ml 05/08/20 21:00 05/12/20 10:20 Flush - Normal Saline 10 Ml Syringe IVF 10 ml Q12HR [place] Administration Vecuronium [place] 10 mg 05/09/20 09:52 05/11/20 23:54 Vecuronium 10 Mg Vial IVP 10 mg Q1H PRN Administration PRONING/VENT COMPLIANCE - Exam General - other findings: sedated and intubated Eye: PERRL ENT: normocephalic atraumatic Neck: supple Heart: RRR Respiratory: rhonchi Gastrointestinal: soft, non-tender Extremities: 1+ LE edema Skin: normal turgor Neurological - other findings: sedated and intubated Hosp A/P - Plan This is a 64 years old pleasant female, who has significant past medical history of diabetes type 2, hypertension, who was diagnosed with Covid- 19 about a week ago presented to the ED with worsening dyspnea and hypoxia Acute hypoxicrespiratory failure - secondary to COVID-19 --pt remains intubated --cont empiric IV abx, steroid. Remdesivir. Status post convalescent plasma --Supportive cares, appreciate pulmonology input --start tubefeeding COVID-19 pneumonia --Management as above Sepsis, present on admission --Secondary to Covid pneumonia --Continue IV antibiotics, follow blood culture - no growth Diabetes type 2 --cont Glipizide. Hold Metformin --add Lantus bedtime, ISS Hypertensive urgency - BP improved --cont Ramipril, add Coreg for BP and rate control --prn Vasotec and Labetalol prn (shortage on hydralazine) Dyslipidemia --resume statin Transient episode of SVT --resolved. d/t above. Add Coreg for rate controlled DVT ppx: Lovenox therapeutic GI ppx: Pepcid Code Status: Full code Anticipated Dispo: Home when medically stable.
[2020-05-12] MEDS: Atorvastatin Calcium 10 MG TAB PO SCH (20:40)
[2020-05-12] MEDS: Insulin Glargine 20 UNITS in Pre-Filled Syringe 1 EACH SC SCH (20:45)
[2020-05-13] MEDS: Propofol 1,000 MG/100 ML VIAL IV PRN ×4 (03:30→19:37)
[2020-05-13 04:08] LABS: #Lymphocytes 0.3 thou/uL (1.20-3.40); #Monocytes 0.4 thou/uL (0.11-0.59); #Neutrophils 14.1 thou/uL (1.40-6.50); %Eosinophils 0.1 % (0.0-10.0); %Lymphocytes 2.2 % (21.0-51.0); %Monocytes 2.3 % (0.0-10.0); %Neutrophils 95.4 % (42.0-75.0); Hemoglobin 10.5 g/dL (12.0-16.0); Mean Corpuscular HGB CONC 32.8 g/dL (32.0-36.0); Mean Corpuscular Hemoglobin 30.3 pg (27.0-31.0); Mean Corpuscular Volume 92.5 fL (78.0-98.0); Mean Platelet Volume 9.3 fL (7.4-10.4); Platelet Count 323 thou/uL (130-400); RBC Distribution Width 13.7 % (11.5-14.5); Red Blood Cell (RBC) Count 3.45 mill/uL (4.20-5.40); White Blood Cell (WBC) Count 14.8 thou/uL (4.8-10.8)
[2020-05-13 04:18] LABS: Anion Gap 12 mmol/L (10-20); BUN (Urea Nitrogen) 35 mg/dL (9.8-20.1); Calc. Creatinine Clearance 77 mL/min (70-130); Calcium 7.6 mg/dL (7.8-10.44); Carbon Dioxide 25 mmol/L (23-31); Chloride 113 mmol/L (98-107); Estimated GFR-MDRD 68; Glucose 333 mg/dL (80-115); Potassium 4.3 mmol/L (3.5-5.1); Sodium 146 mmol/L (136-145)
[2020-05-13] MEDS: methylPREDNISolone Sod Succ 40 MG VIAL IVP SCH ×4 (05:30→23:31)
[2020-05-13] MEDS: Sodium Chloride 0.9% 1,000 ML IV SCH (05:31)
[2020-05-13] MEDS: HumaLOG 300 UNITS/3 ML VIAL SC PRN ×4 (05:38→23:46)
[2020-05-13] MEDS: fentaNYL Citrate/PF 2,000 MCG in Sodium Chloride 0.9% 60 ML IV SCH (07:46)
[2020-05-13] MEDS: PROVENTIL INHALER 6.7 G (200 INHALATIONS) INH SCH ×3 (07:49→18:22)
[2020-05-13] MEDS: Mometasone 200 MCG/Formoterol 5 MCG 120 PUFF INHALER INH SCH ×2 (07:49→18:22)
--- NOTE | 2020-05-13 08:37 | RAD ---
PORTABLE CHEST: HISTORY: CCU followup. COMPARISON: 05/12/2020. FINDINGS: ET tube and NG Tube are in place. There are bilateral effusions and hazy infiltrates bilaterally whi ch do not appear significantly changed from yesterday. IMPRESSION: No acute interval change. POS: AGW
[2020-05-13] MEDS: Azithromycin 500 MG in Sodium Chloride 0.9% 250 ML 250 ML IVPB SCH (09:55)
[2020-05-13] MEDS: Cefepime 1 GM in Sodium Chloride 0.9% 100 ML IVPB SCH ×2 (09:55→19:38)
[2020-05-13] MEDS: Carvedilol 6.25 MG TAB PO SCH ×2 (09:56→16:19)
[2020-05-13] MEDS: glipiZIDE 10 MG TAB PO SCH (09:57)
[2020-05-13] MEDS: Aspirin 81 mg Enteric Coated Tablet PO SCH (09:57)
[2020-05-13] MEDS: Enoxaparin Sodium 80 MG/0.8 ML SYRINGE SC SCH ×2 (09:57→19:40)
[2020-05-13] MEDS: Lorazepam 2 MG/ML VIAL SLOW IVP PRN ×2 (09:57→19:39)
[2020-05-13] MEDS: Famotidine/PF 20 mg/2ml Vial SLOW IVP SCH ×2 (09:57→19:39)
[2020-05-13] MEDS: hydrALAZINE 25 MG TAB PO SCH ×3 (09:58→19:39)
[2020-05-13] MEDS: Insulin Glargine 20 UNITS in Pre-Filled Syringe SC SCH (09:58)
[2020-05-13] MEDS ORDERED: Amlodipine 10 MG TAB PO SCH (15:45)
[2020-05-13] MEDS ORDERED: Insulin Glargine 10 UNITS in Pre-Filled Syringe 1 EACH SC SCH (15:45)
--- NOTE | 2020-05-13 15:45 | PDOC.HOSPP ---
- Subjective Encounter Date: 05/13/20 Subjective: The patient has been tachycardic and hypertensive this morning. According to the nurse, she was not properly sedated and was biting the ET tube. - Objective Vital Signs & Weight: Vital Signs (12 hours) Temp Pulse Resp BP 05/13/20 14:41 81 05/13/20 10:00 77 05/13/20 09:58 78 190/98 H 05/13/20 09:56 190/98 H 05/13/20 07:44 69 05/13/20 06:00 20 05/13/20 04:00 98.9 F 17 Weight Admit Weight 156 lb Weight 163 lb 2.273 oz Most Recent Monitor Data Heart Rate from ECG 71 NIBP 188/89 NIBP BP-Mean 122 Respiration from ECG 20 SpO2 100 I&O: 05/12/20 05/13/20 05/14/20 06:59 06:59 06:59 Intake Total 1566.5 1930.5 Output Total 1525 1965 30 Balance 41.5 -34.5 -30 Result Diagrams: 05/13/20 03:14 05/13/20 03:14 Additional Labs: Accuchecks 05/13/20 05/13/20 05/12/20 10:28 05:22 23:47 POC Glucose 282 H 322 H 328 H 05/12/20 18:39 POC Glucose 256 H Hospitalist ROS - Medication Medications: Active Medications Generic Name Dose Route Start Last Admin Trade Name Freq PRN Reason Stop Dose Admin Acetaminophen 650 mg 05/07/20 19:41 05/08/20 20:10 Acetaminophen 325 Mg Tab PO 650 mg Q4H PRN Administration Headache/Fever or Pain Albuterol Sulfate 2 puff 05/07/20 19:00 05/13/20 12:13 Proventil Inhaler 6.7 G (200 Inhalations) INH 2 puff [id number] [place] Administration Alprazolam 0.25 mg 05/08/20 15:46 05/08/20 20:11 Alprazolam 0.25 Mg Tab PO 0.25 mg BIDPRN PRN Administration Anxiety Aspirin 81 mg 05/09/20 09:00 05/13/20 09:57 Aspirin 81 Mg Enteric Coated Tablet PO 81 mg DAILY [place] Administration Atorvastatin Calcium 10 mg 05/08/20 21:00 10/16/20 20:40 Atorvastatin Calcium 10 Mg Tab PO 10 mg HS [place] Administration Carvedilol 6.25 mg 05/12/20 08:00 05/13/20 09:56 Carvedilol 6.25 Mg Tab PO 6.25 mg BID-WM [place] Administration Enoxaparin Sodium 70 mg 05/07/20 21:00 05/13/20 09:57 Enoxaparin Sodium 80 Mg/0.8 Ml Syringe SC 70 mg 0900,2100 [place] Administration Famotidine 20 mg 05/07/20 21:00 05/13/20 09:57 Famotidine/Pf 20 Mg/2ml Vial SLOW IVP 20 mg BID [place] Administration Hydralazine HCl 25 mg 05/11/20 09:00 05/13/20 09:58 Hydralazine 25 Mg Tab PO 25 mg TID [place] Administration Cefepime HCl 1 gm/ Sodium 100 mls @ 200 mls/hr 05/07/20 21:00 05/13/20 09:55 Chloride IVPB 100 mls Q12HR [place] Administration Azithromycin 500 mg/ Sodium 250 mls @ 250 mls/hr 05/08/20 08:00 05/13/20 09:55 Chloride IVPB 250 mls 0800 [place] Administration Insulin Glargine 20 units/ 0.2 mls @ 0 mls/hr 05/08/20 21:00 05/12/20 20:45 Miscellaneous Medication SC 0.2 mls HS [place] Administration Fentanyl Citrate 2,000 mcg/ 100 mls @ 0 mls/hr 05/09/20 07:30 05/13/20 07:46 Sodium Chloride IV 06/08/20 07:30 100 mls INF [place] Administration Protocol Per Protocol Dopamine HCl/Dextrose 250 mls @ 7.961 mls/hr 05/10/20 16:05 05/10/20 20:37 Dopamine 400 Mg/D5w 250 Ml IVPB 250 mls INF PRN Administration .BRADYCARDIA 40s PRN Protocol 3 MCG/KG/MIN Sodium Chloride 1,000 mls @ 50 mls/hr 05/12/20 09:30 05/13/20 05:31 Normal Saline 0.9% IV 1,000 mls .Q20H [place] Administration Insulin Human Lispro 0 units 05/07/20 20:06 05/13/20 10:47 Humalog 300 Units/3 Ml Vial SC 4 unit .MILD SLIDING SCALE PRN Administration Mild Correctional Scale Insulin Human Lispro 0 units 05/07/20 20:06 05/11/20 21:06 Humalog 300 Units/3 Ml Vial SC 3 unit .BEDTIME SLIDING SC PRN Administration Bedtime Correctional Scale Labetalol HCl 10 mg 05/07/20 10:55 05/09/20 07:30 Labetalol Hcl 100 Mg/20 Ml Vial SLOW IVP 10 mg Q4H PRN Administration SBP Greater Than 180 Lorazepam 2 mg 05/09/20 07:30 05/13/20 09:57 Lorazepam 2 Mg/Ml Vial SLOW IVP 06/08/20 07:30 2 mg Q1H PRN Administration Breakthrough agitation Methylprednisolone Sodium Succinate 40 mg 05/07/20 18:00 05/13/20 11:56 Methylprednisolone Sod Succ 40 Mg Vial IVP 40 mg Q6HR [place] Administration Mometasone Furoate/Formoterol Fumar 2 puff 05/07/20 18:30 05/13/20 07:49 Mometasone 200 Mcg/Formoterol 5 Mcg 120 Puff Inhaler INH 2 puff BID-RT [place] Administration Propofol 1,000 mg 05/09/20 07:30 05/13/20 09:57 Propofol 1,000 Mg/100 Ml Vial IV 06/08/20 07:30 1,000 mg INF PRN Administration TO ACHIEVE GOAL RASS Protocol Sodium Chloride 10 ml 05/08/20 21:00 05/13/20 09:59 Flush - Normal Saline 10 Ml Syringe IVF 10 ml Q12HR [place] Administration Vecuronium [place] 10 mg 05/09/20 09:52 05/11/20 23:54 Vecuronium 10 Mg Vial IVP 10 mg Q1H PRN Administration PRONING/VENT COMPLIANCE Hosp A/P - Plan 05/12: This is a 64 years old pleasant female, who has significant past medical history of diabetes type 2, hypertension, who was diagnosed with Covid- 19 about a week ago presented to the ED with worsening dyspnea and hypoxia Acute hypoxicrespiratory failure - secondary to COVID-19 --pt remains intubated --cont empiric IV abx, steroid. Remdesivir. Status post convalescent plasma --Supportive cares, appreciate pulmonology input --start tubefeeding COVID-19 pneumonia --Management as above Sepsis, present on admission --Secondary to Covid pneumonia --Continue IV antibiotics, follow blood culture - no growth Diabetes type 2 --cont Glipizide. Hold Metformin --add Lantus bedtime, ISS Hypertensive urgency - BP improved --cont Ramipril, add Coreg for BP and rate control --prn Vasotec and Labetalol prn (shortage on hydralazine) Dyslipidemia --resume statin Transient episode of SVT --resolved. d/t above. Add Coreg for rate controlled DVT ppx: Lovenox therapeutic GI ppx: Pepcid Code Status: Full code Anticipated Dispo: Home when medically stable. 05/13: The patient remains dependent on the ventilator. Additional sedation was administered to help improve her vitals. Her blood pressure remained elevated. We will add amlodipine 10 mg orally daily. Patient sugar levels are also trending up. I will increase her morning Lantus to 30 units and discontinue glipizide to avoid hypoglycemia. Continue vent management per pulmonology.
[2020-05-13] MEDS: Acetaminophen 325 MG TAB PO PRN (16:53)
[2020-05-13] MEDS: Atorvastatin Calcium 10 MG TAB PO SCH (19:51)
[2020-05-13] MEDS: Insulin Glargine 20 UNITS in Pre-Filled Syringe 1 EACH SC SCH (20:01)
--- NOTE | 2020-05-13 20:20 | PRG ---
DATE OF SERVICE: 05/13/2020 SUBJECTIVE: Bhakti Watts remains ventilated. OBJECTIVE: VITAL SIGNS: Heart rate is in the 80s, blood pressure 144/56, and respiratory rate is in the teens. LUNGS: Remarkable for coarse equal breath sounds. HEART: Regular rhythm. ABDOMEN: Soft. EXTREMITIES: Without asymmetry. LABORATORIES: White count 14.8, hemoglobin 10.5, and platelets 323. Electrolytes; sodium 146, potassium 4.3, chloride 113, bicarb 25, BUN 35, and creatinine 0.8. PH 7.43, CO2 of 37, PO2 of 61 two days ago. Chest x-ray is unchanged. IMPRESSION: COVID pneumonia with respiratory failure. PLAN: Continue supportive care. It is highly likely at some point she will require tracheostomy. Job ID: [id number] MTDD
[2020-05-14] MEDS: PROVENTIL INHALER 6.7 G (200 INHALATIONS) INH SCH ×4 (00:24→18:41)
[2020-05-14] MEDS: Sodium Chloride 0.9% 1,000 ML IV SCH ×2 (00:38→21:00)
[2020-05-14] MEDS: fentaNYL Citrate/PF 2,000 MCG in Sodium Chloride 0.9% 60 ML IV SCH ×2 (00:38→19:39)
[2020-05-14] MEDS: methylPREDNISolone Sod Succ 40 MG VIAL IVP SCH ×3 (04:55→17:04)
[2020-05-14] MEDS: Propofol 1,000 MG/100 ML VIAL IV PRN ×2 (04:55→11:54)
[2020-05-14] MEDS: HumaLOG 300 UNITS/3 ML VIAL SC PRN ×4 (05:34→22:15)
[2020-05-14] MEDS: Mometasone 200 MCG/Formoterol 5 MCG 120 PUFF INHALER INH SCH ×2 (07:32→18:41)
[2020-05-14] MEDS: Azithromycin 500 MG in Sodium Chloride 0.9% 250 ML 250 ML IVPB SCH (08:41)
[2020-05-14] MEDS: Cefepime 1 GM in Sodium Chloride 0.9% 100 ML IVPB SCH ×2 (08:41→19:34)
[2020-05-14] MEDS: Enoxaparin Sodium 80 MG/0.8 ML SYRINGE SC SCH ×2 (08:42→19:35)
[2020-05-14] MEDS: Famotidine/PF 20 mg/2ml Vial SLOW IVP SCH ×2 (08:43→19:35)
[2020-05-14] MEDS: Aspirin 81 mg Enteric Coated Tablet PO SCH (08:43)
[2020-05-14] MEDS: Carvedilol 6.25 MG TAB PO SCH ×2 (08:43→16:13)
[2020-05-14] MEDS: Amlodipine 10 MG TAB PO SCH (08:44)
[2020-05-14] MEDS: hydrALAZINE 25 MG TAB PO SCH ×3 (08:44→19:33)
[2020-05-14] MEDS ORDERED: Insulin Glargine 30 UNITS in Pre-Filled Syringe 1 EACH SC SCH (09:00)
--- NOTE | 2020-05-14 12:03 | RAD ---
PORTABLE CHEST: DATE: 05/14/2020. PROVIDED CLINICAL HISTORY: Respiratory insufficiency. FINDINGS: Comparison 05/13/2020. Significant interval change with respect to the prior examination is not appa rent. IMPRESSION: As above. POS: SONIYA
[2020-05-14] MEDS ORDERED: Insulin Glargine 10 UNITS in Pre-Filled Syringe 1 EACH SC SCH (12:15)
--- NOTE | 2020-05-14 13:53 | PDOC.HOSPP ---
- Subjective Encounter Date: 05/14/20 Subjective: Patient remains on the vent. Her heart rate and blood pressure control are better than yesterday. - Objective Vital Signs & Weight: Vital Signs (12 hours) Temp Pulse Resp BP Pulse Ox 05/14/20 12:00 17 05/14/20 11:00 99.3 F 05/14/20 10:39 72 05/14/20 10:00 16 05/14/20 08:44 65 05/14/20 08:43 164/75 H 05/14/20 08:00 16 05/14/20 07:36 95 05/14/20 07:32 65 05/14/20 07:00 99.4 F 05/14/20 06:00 16 05/14/20 04:00 99.8 F H 16 05/14/20 02:00 72 16 164/75 H Weight Admit Weight 156 lb Weight 163 lb 2.273 oz Most Recent Monitor Data Heart Rate from ECG 73 NIBP 152/70 NIBP BP-Mean 97 Respiration from ECG 18 SpO2 97 I&O: 05/13/20 05/14/20 05/15/20 06:59 06:59 06:59 Intake Total 1930.5 2958 250 Output Total 1965 1950 585 Balance -34.5 1008 -335 Result Diagrams: 05/13/20 03:14 05/13/20 03:14 Additional Labs: Accuchecks 05/14/20 05/14/20 05/13/20 10:50 04:56 16:43 POC Glucose 281 H 277 H 287 H Hospitalist ROS - Medication Medications: Active Medications Generic Name Dose Route Start Last Admin Trade Name Freq PRN Reason Stop Dose Admin Acetaminophen 650 mg 05/07/20 19:41 05/13/20 16:53 Acetaminophen 325 Mg Tab PO 650 mg Q4H PRN Administration Headache/Fever or Pain Albuterol Sulfate 2 puff 05/07/20 19:00 05/14/20 12:25 Proventil Inhaler 6.7 G (200 Inhalations) INH 2 puff [id number] [place] Administration Alprazolam 0.25 mg 05/08/20 15:46 05/08/20 20:11 Alprazolam 0.25 Mg Tab PO 0.25 mg BIDPRN PRN Administration Anxiety Amlodipine Besylate 10 mg 05/14/20 09:00 05/14/20 08:44 Amlodipine 10 Mg Tab PO 10 mg DAILY [place] Administration Aspirin 81 mg 05/09/20 09:00 05/14/20 08:43 Aspirin 81 Mg Enteric Coated Tablet PO 81 mg DAILY [place] Administration Atorvastatin Calcium 10 mg 05/08/20 21:00 05/13/20 19:51 Atorvastatin Calcium 10 Mg Tab PO 10 mg HS [place] Administration Carvedilol 6.25 mg 05/12/20 08:00 05/14/20 08:43 Carvedilol 6.25 Mg Tab PO 6.25 mg BID-WM [place] Administration Enoxaparin Sodium 70 mg 05/07/20 21:00 05/14/20 08:42 Enoxaparin Sodium 80 Mg/0.8 Ml Syringe SC 70 mg 0900,2100 [place] Administration Famotidine 20 mg 05/07/20 21:00 05/14/20 08:43 Famotidine/Pf 20 Mg/2ml Vial SLOW IVP 20 mg BID [place] Administration Hydralazine HCl 25 mg 05/11/20 09:00 05/14/20 08:44 Hydralazine 25 Mg Tab PO 25 mg TID [place] Administration Cefepime HCl 1 gm/ Sodium 100 mls @ 200 mls/hr 05/07/20 21:00 05/14/20 08:41 Chloride IVPB 100 mls Q12HR [place] Administration Azithromycin 500 mg/ Sodium 250 mls @ 250 mls/hr 05/08/20 08:00 05/14/20 08:41 Chloride IVPB 250 mls 0800 [place] Administration Insulin Glargine 20 units/ 0.2 mls @ 0 mls/hr 05/08/20 21:00 05/13/20 20:01 Miscellaneous Medication SC 0.2 mls HS [place] Administration Fentanyl Citrate 2,000 mcg/ 100 mls @ 0 mls/hr 05/09/20 07:30 05/14/20 00:38 Sodium Chloride IV 06/08/20 07:30 100 mls INF [place] Administration Protocol Per Protocol Dopamine HCl/Dextrose 250 mls @ 7.961 mls/hr 05/10/20 16:05 05/10/20 20:37 Dopamine 400 Mg/D5w 250 Ml IVPB 250 mls INF PRN Administration .BRADYCARDIA 40s PRN Protocol 3 MCG/KG/MIN Sodium Chloride 1,000 mls @ 50 mls/hr 05/12/20 09:30 05/14/20 00:38 Normal Saline 0.9% IV 1,000 mls .Q20H [place] Administration Insulin Glargine 10 units/ 0.1 mls @ 0 mls/hr 05/14/20 12:15 05/14/20 13:38 Miscellaneous Medication SC 05/14/20 16:00 0.1 mls NOW [place] Administration Insulin Human Lispro 0 units 05/07/20 20:06 05/14/20 10:56 Humalog 300 Units/3 Ml Vial SC 4 unit .MILD SLIDING SCALE PRN Administration Mild Correctional Scale Insulin Human Lispro 0 units 05/07/20 20:06 05/11/20 21:06 Humalog 300 Units/3 Ml Vial SC 3 unit .BEDTIME SLIDING SC PRN Administration Bedtime Correctional Scale Labetalol HCl 10 mg 05/07/20 10:55 05/09/20 07:30 Labetalol Hcl 100 Mg/20 Ml Vial SLOW IVP 10 mg Q4H PRN Administration SBP Greater Than 180 Lorazepam 2 mg 05/09/20 07:30 05/13/20 19:39 Lorazepam 2 Mg/Ml Vial SLOW IVP 06/08/20 07:30 2 mg Q1H PRN Administration Breakthrough agitation Methylprednisolone Sodium Succinate 40 mg 05/07/20 18:00 05/14/20 11:54 Methylprednisolone Sod Succ 40 Mg Vial IVP 40 mg Q6HR [place] Administration Mometasone Furoate/Formoterol Fumar 2 puff 05/07/20 18:30 05/14/20 07:32 Mometasone 200 Mcg/Formoterol 5 Mcg 120 Puff Inhaler INH 2 puff BID-RT [place] Administration Propofol 1,000 mg 05/09/20 07:30 05/14/20 11:54 Propofol 1,000 Mg/100 Ml Vial IV 06/08/20 07:30 1,000 mg INF PRN Administration TO ACHIEVE GOAL RASS Protocol Sodium Chloride 10 ml 05/08/20 21:00 05/14/20 08:43 Flush - Normal Saline 10 Ml Syringe IVF 10 ml Q12HR [place] Administration Vecuronium [place] 10 mg 05/09/20 09:52 05/11/20 23:54 Vecuronium 10 Mg Vial IVP 10 mg Q1H PRN Administration PRONING/VENT COMPLIANCE Hosp A/P - Plan This is a 64 years old pleasant female, who has significant past medical history of diabetes type 2, hypertension, who was diagnosed with Covid- 19 about a week ago presented to the ED with worsening dyspnea and hypoxia Acute hypoxicrespiratory failure - secondary to COVID-19 --pt remains intubated --cont empiric IV abx, steroid. Remdesivir. Status post convalescent plasma --Continue vent management per pulmonology. --Continue tube feeding. COVID-19 pneumonia --Management as above Sepsis, present on admission --Secondary to Covid pneumonia --Continue IV antibiotics, follow blood culture - no growth Diabetes type 2 Increase Lantus to 40 units in the morning and 20 units in the evening. DC glipizide to avoid hypoglycemia. Hypertensive urgency - BP improved --cont Ramipril, Coreg, and amlodipine. --prn Vasotec and Labetalol prn (shortage on hydralazine) Dyslipidemia --resume statin Transient episode of SVT --resolved. d/t above. Add Coreg for rate controlled DVT ppx: Lovenox therapeutic GI ppx: Pepcid Code Status: Full code Anticipated Dispo: Home when medically stable.
--- NOTE | 2020-05-14 15:34 | PRG ---
DATE OF SERVICE: 05/14/2020 SUBJECTIVE: Bhakti Watts remains mechanically ventilated. OBJECTIVE: VITAL SIGNS: Respiratory rates in the teens, heart rates in the 80s, FiO2 is at 45%, blood pressure 178/69. LUNGS: Unchanged. HEART: Unchanged. ABDOMEN: Unchanged. LABORATORY DATA: White count 14.8 yesterday. There is no lab today. IMPRESSION: Respiratory failure associated with COVID pneumonia. Check lab in the morning. Continue mechanical ventilation. I do not anticipate to improve rapidly. Job ID: [id number]
[2020-05-14] MEDS: Labetalol HCl 100 MG/20 ML VIAL SLOW IVP PRN ×3 (15:41→21:46)
[2020-05-14] MEDS: Atorvastatin Calcium 10 MG TAB PO SCH (19:34)
[2020-05-14] MEDS: Insulin Glargine 20 UNITS in Pre-Filled Syringe 1 EACH SC SCH (19:35)
[2020-05-14] MEDS: Lorazepam 2 MG/ML VIAL SLOW IVP PRN (21:49)
[2020-05-15] MEDS: PROVENTIL INHALER 6.7 G (200 INHALATIONS) INH SCH ×6 (00:08→23:45)
[2020-05-15] MEDS: methylPREDNISolone Sod Succ 40 MG VIAL IVP SCH ×5 (00:29→23:00)
[2020-05-15] MEDS: Propofol 1,000 MG/100 ML VIAL IV PRN ×4 (00:32→23:00)
[2020-05-15] MEDS: Vecuronium 10 MG VIAL IVP PRN (02:40)
[2020-05-15 03:25] LABS: Band 2 % (5-11); Hemoglobin 10.2 g/dL (12.0-16.0); Hypochromia SLIGHT = 6-15 cells (100X) (0-5/hpf); Lymphocytes 5 % (21-51); MDiff Complete? YES; Mean Corpuscular HGB CONC 32.9 g/dL (32.0-36.0); Mean Corpuscular Hemoglobin 30.3 pg (27.0-31.0); Mean Corpuscular Volume 91.9 fL (78.0-98.0); Mean Platelet Volume 9.3 fL (7.4-10.4); Monocytes 1 % (0-10); Neutrophil 92 % (42-75); Platelet Count 259 thou/uL (130-400); Platelet Morphology Comment Appears Adequate; RBC Distribution Width 13.3 % (11.5-14.5); Red Blood Cell (RBC) Count 3.37 mill/uL (4.20-5.40); White Blood Cell (WBC) Count 14.2 thou/uL (4.8-10.8)
[2020-05-15 03:35] LABS: Anion Gap 12 mmol/L (10-20); BUN (Urea Nitrogen) 28 mg/dL (9.8-20.1); Calc. Creatinine Clearance 94 mL/min (70-130); Calcium 7.4 mg/dL (7.8-10.44); Carbon Dioxide 28 mmol/L (23-31); Chloride 108 mmol/L (98-107); Estimated GFR-MDRD 85; Glucose 291 mg/dL (80-115); Potassium 4.2 mmol/L (3.5-5.1); Sodium 144 mmol/L (136-145)
[2020-05-15 05:03] LABS: Actual Bicarbonate (HCO3a) 29.6 mEq/L (22-28); Base Excess (BEa) 4.4 mEq/L (-2.0 to +3.0); CO2 Tension 46.5 mmHg (35.0-45.0); Calcium, Ionized (arterial) 1.06 mmol/L (1.12-1.30); Carboxyhemoglobin (COHb) 0.1 gm% (0.0-3.0); Hemoglobin (Hb) 11.1 g/dL (12.0-16.0); O2 Tension (PaO2), arterial 65.8 mmHg (> 80.0); Potassium - ABG Lab 4.13 mmol/L (3.70-5.30); pH, Arterial 7.42 (7.35-7.45)
[2020-05-15 05:07] LABS: ALV-art Gradient 196.925 mmHg (0-20); Puncture Site R RADIAL
[2020-05-15] MEDS: HumaLOG 300 UNITS/3 ML VIAL SC PRN ×3 (05:58→15:53)
[2020-05-15] MEDS: Mometasone 200 MCG/Formoterol 5 MCG 120 PUFF INHALER INH SCH ×2 (07:29→19:02)
[2020-05-15] MEDS: Azithromycin 500 MG in Sodium Chloride 0.9% 250 ML 250 ML IVPB SCH (08:08)
[2020-05-15] MEDS: Aspirin 81 mg Enteric Coated Tablet PO SCH (08:09)
[2020-05-15] MEDS: Cefepime 1 GM in Sodium Chloride 0.9% 100 ML IVPB SCH ×2 (08:09→20:02)
[2020-05-15] MEDS: Amlodipine 10 MG TAB PO SCH (08:10)
[2020-05-15] MEDS: hydrALAZINE 25 MG TAB PO SCH ×3 (08:10→20:01)
[2020-05-15] MEDS: Famotidine/PF 20 mg/2ml Vial SLOW IVP SCH ×2 (08:10→20:01)
[2020-05-15] MEDS: Enoxaparin Sodium 80 MG/0.8 ML SYRINGE SC SCH ×2 (08:10→20:01)
[2020-05-15] MEDS: Insulin Glargine 40 UNITS in Pre-Filled Syringe 1 EACH SC SCH (08:10)
[2020-05-15] MEDS: Carvedilol 6.25 MG TAB PO SCH ×2 (08:10→15:37)
[2020-05-15] MEDS: Lorazepam 2 MG/ML VIAL SLOW IVP PRN (08:22)
--- NOTE | 2020-05-15 08:55 | RAD ---
PORTABLE CHEST: HISTORY: COVID pneumonia. COMPARISON: 05/14/2020 exam. FINDINGS: Interstitial alveolar lung changes are fairly similar to the prior exam. Some of the right-sided sergio nges may be slightly improved. Endotracheal and NG tubes are in satisfactory position. IMPRESSION: Suggestion of perhaps some slight improvement to the right-sided lung changes. POS: LINDSEY
[2020-05-15] MEDS: fentaNYL Citrate/PF 2,000 MCG in Sodium Chloride 0.9% 60 ML IV SCH (10:07)
--- NOTE | 2020-05-15 13:14 | PRG ---
DATE OF SERVICE: 05/15/2020 SUBJECTIVE: Bhakti Watts was switched to bilevel because of airway pressure issues last night. OBJECTIVE: VITAL SIGNS: Blood pressure 146/61; heart rates in the 50s, she is in sinus rhythm; respiratory rates in the teens; FiO2 is at 45%. LUNGS: Clear. HEART: Regular rhythm. ABDOMEN: Soft. LABORATORY DATA: White count 14.2, hemoglobin 10.2, platelets 259. Sodium 144, potassium 4.2, chloride 108, bicarb 28, BUN 20, creatinine 0.69. The pH is 7.42, pCO2 is 46, and pO2 is 65. IMPRESSION: 1. COVID pneumonia; respiratory failure, currently not weanable. 2. Diabetes. 3. Anemia. It is likely a mixed anemia. PLAN: Continue supportive care. Job ID: [id number]
--- NOTE | 2020-05-15 14:34 | PDOC.HOSPP ---
- Subjective Encounter Date: 05/15/20 non-verbal (Remains on the vent) - Objective Vital Signs & Weight: Vital Signs (12 hours) Temp Pulse Resp BP Pulse Ox 05/15/20 14:07 57 L 146/61 H 05/15/20 12:25 57 L 146/61 H 05/15/20 12:00 16 05/15/20 11:00 99 F 05/15/20 10:37 59 L 151/61 H 05/15/20 10:00 16 05/15/20 08:10 59 L 168/65 H 05/15/20 08:00 16 05/15/20 07:29 59 L 168/65 H 05/15/20 07:15 100 05/15/20 07:00 98.7 F 05/15/20 06:00 16 05/15/20 05:20 61 164/69 H 05/15/20 05:15 16 05/15/20 04:00 98.8 F 16 Weight Admit Weight 156 lb Weight 163 lb 2.273 oz Most Recent Monitor Data Heart Rate from ECG 57 NIBP 149/63 NIBP BP-Mean 91 Respiration from ECG 16 SpO2 100 I&O: 05/14/20 05/15/20 05/16/20 06:59 06:59 06:59 Intake Total 2958 3212.7 250 Output Total 1950 2320 780 Balance 1008 892.7 -530 Result Diagrams: 05/15/20 02:45 05/15/20 02:45 Additional Labs: Accuchecks 05/14/20 05/14/20 05/13/20 19:45 16:03 23:33 POC Glucose 208 H 242 H 324 H Hospitalist ROS - Medication Medications: Active Medications Generic Name Dose Route Start Last Admin Trade Name Freq PRN Reason Stop Dose Admin Acetaminophen 650 mg 05/07/20 19:41 05/13/20 16:53 Acetaminophen 325 Mg Tab PO 650 mg Q4H PRN Administration Headache/Fever or Pain Albuterol Sulfate 2 puff 05/07/20 19:00 05/15/20 12:25 Proventil Inhaler 6.7 G (200 Inhalations) INH 2 puff [id number] [place] Administration Alprazolam 0.25 mg 05/08/20 15:46 05/08/20 20:11 Alprazolam 0.25 Mg Tab PO 0.25 mg BIDPRN PRN Administration Anxiety Amlodipine Besylate 10 mg 05/14/20 09:00 05/15/20 08:10 Amlodipine 10 Mg Tab PO 10 mg DAILY [place] Administration Aspirin 81 mg 05/09/20 09:00 05/15/20 08:09 Aspirin 81 Mg Enteric Coated Tablet PO 81 mg DAILY [place] Administration Atorvastatin Calcium 10 mg 05/08/20 21:00 05/14/20 19:34 Atorvastatin Calcium 10 Mg Tab PO 10 mg HS [place] Administration Carvedilol 6.25 mg 05/12/20 08:00 05/15/20 08:10 Carvedilol 6.25 Mg Tab PO 6.25 mg BID-WM [place] Administration Enoxaparin Sodium 70 mg 05/07/20 21:00 05/15/20 08:10 Enoxaparin Sodium 80 Mg/0.8 Ml Syringe SC 70 mg 0900,2100 [place] Administration Famotidine 20 mg 05/07/20 21:00 05/15/20 08:10 Famotidine/Pf 20 Mg/2ml Vial SLOW IVP 20 mg BID [place] Administration Hydralazine HCl 25 mg 05/11/20 09:00 05/15/20 14:07 Hydralazine 25 Mg Tab PO 25 mg TID [place] Administration Cefepime HCl 1 gm/ Sodium 100 mls @ 200 mls/hr 05/07/20 21:00 05/15/20 08:09 Chloride IVPB 100 mls Q12HR [place] Administration Azithromycin 500 mg/ Sodium 250 mls @ 250 mls/hr 05/08/20 08:00 05/15/20 08:08 Chloride IVPB 250 mls 0800 [place] Administration Insulin Glargine 20 units/ 0.2 mls @ 0 mls/hr 05/08/20 21:00 05/14/20 19:35 Miscellaneous Medication SC 0.2 mls HS [place] Administration Fentanyl Citrate 2,000 mcg/ 100 mls @ 0 mls/hr 05/09/20 07:30 05/15/20 10:07 Sodium Chloride IV 06/08/20 07:30 100 mls INF [place] Administration Protocol Per Protocol Dopamine HCl/Dextrose 250 mls @ 7.961 mls/hr 05/10/20 16:05 05/10/20 20:37 Dopamine 400 Mg/D5w 250 Ml IVPB 250 mls INF PRN Administration .BRADYCARDIA 40s PRN Protocol 3 MCG/KG/MIN Sodium Chloride 1,000 mls @ 50 mls/hr 05/12/20 09:30 05/14/20 21:00 Normal Saline 0.9% IV 1,000 mls .Q20H [place] Administration Insulin Glargine 40 units/ 0.4 mls @ 0 mls/hr 05/15/20 09:00 05/15/20 08:10 Miscellaneous Medication SC 0.4 mls QAM [place] Administration Insulin Human Lispro 0 units 05/07/20 20:06 05/15/20 10:28 Humalog 300 Units/3 Ml Vial SC 4 unit .MILD SLIDING SCALE PRN Administration Mild Correctional Scale Insulin Human Lispro 0 units 05/07/20 20:06 05/11/20 21:06 Humalog 300 Units/3 Ml Vial SC 3 unit .BEDTIME SLIDING SC PRN Administration Bedtime Correctional Scale Labetalol HCl 10 mg 05/07/20 10:55 05/14/20 21:46 Labetalol Hcl 100 Mg/20 Ml Vial SLOW IVP 10 mg Q4H PRN Administration SBP Greater Than 180 Lorazepam 2 mg 05/09/20 07:30 05/15/20 08:22 Lorazepam 2 Mg/Ml Vial SLOW IVP 06/08/20 07:30 2 mg Q1H PRN Administration Breakthrough agitation Methylprednisolone Sodium Succinate 40 mg 05/07/20 18:00 05/15/20 12:38 Methylprednisolone Sod Succ 40 Mg Vial IVP 40 mg Q6HR [place] Administration Mometasone Furoate/Formoterol Fumar 2 puff 05/07/20 18:30 05/15/20 07:29 Mometasone 200 Mcg/Formoterol 5 Mcg 120 Puff Inhaler INH 2 puff BID-RT [place] Administration Propofol 1,000 mg 05/09/20 07:30 05/15/20 08:22 Propofol 1,000 Mg/100 Ml Vial IV 06/08/20 07:30 1,000 mg INF PRN Administration TO ACHIEVE GOAL RASS Protocol Sodium Chloride 10 ml 05/08/20 21:00 05/15/20 08:11 Flush - Normal Saline 10 Ml Syringe IVF 10 ml Q12HR [place] Administration Vecuronium [place] 10 mg 05/09/20 09:52 05/15/20 02:40 Vecuronium 10 Mg Vial IVP 10 mg Q1H PRN Administration PRONING/VENT COMPLIANCE Hosp A/P - Plan This is a 64 years old pleasant female, who has significant past medical history of diabetes type 2, hypertension, who was diagnosed with Covid- 19 about a week ago presented to the ED with worsening dyspnea and hypoxia Acute hypoxicrespiratory failure - secondary to COVID-19 --pt remains intubated --cont empiric IV abx, steroid. Remdesivir. Status post convalescent plasma --Continue vent management per pulmonology. --Continue tube feeding. COVID-19 pneumonia --Management as above Sepsis, present on admission --Secondary to Covid pneumonia --Continue IV antibiotics, blood cultures show no growth so far. Diabetes type 2 Increase Lantus to 40 units in the morning and 30 units in the evening. DC glipizide to avoid hypoglycemia. Hypertensive urgency - BP improved --cont Ramipril, Coreg, and amlodipine. --prn Vasotec and Labetalol prn (shortage on hydralazine) Dyslipidemia --resume statin Transient episode of SVT --resolved. d/t above. Add Coreg for rate controlled DVT ppx: Lovenox therapeutic GI ppx: Pepcid Code Status: Full code Anticipated Dispo: Home when medically stable.
[2020-05-15] MEDS: Sodium Chloride 0.9% 1,000 ML IV SCH (15:38)
[2020-05-15] MEDS: Insulin Glargine 30 UNITS in Pre-Filled Syringe 1 EACH SC SCH (20:01)
[2020-05-15] MEDS: Atorvastatin Calcium 10 MG TAB PO SCH (20:01)
[2020-05-16] MEDS: Labetalol HCl 100 MG/20 ML VIAL SLOW IVP PRN (00:13)
[2020-05-16 04:59] LABS: Band 3 % (5-11); Hemoglobin 10.1 g/dL (12.0-16.0); Lymphocytes 4 % (21-51); MDiff Complete? YES; Mean Corpuscular HGB CONC 32.1 g/dL (32.0-36.0); Mean Corpuscular Volume 90.3 fL (78.0-98.0); Mean Platelet Volume 9.8 fL (7.4-10.4); Monocytes 2 % (0-10); Neutrophil 91 % (42-75); Platelet Count 247 thou/uL (130-400); Platelet Morphology Comment Appears Adequate; RBC Distribution Width 13.2 % (11.5-14.5); Red Blood Cell (RBC) Count 3.48 mill/uL (4.20-5.40); White Blood Cell (WBC) Count 11.4 thou/uL (4.8-10.8)
[2020-05-16 05:11] LABS: Anion Gap 10 mmol/L (10-20); BUN (Urea Nitrogen) 32 mg/dL (9.8-20.1); Calc. Creatinine Clearance 87 mL/min (70-130); Calcium 7.2 mg/dL (7.8-10.44); Carbon Dioxide 29 mmol/L (23-31); Chloride 111 mmol/L (98-107); Estimated GFR-MDRD 79; Glucose 370 mg/dL (80-115); Potassium 4.1 mmol/L (3.5-5.1); Sodium 146 mmol/L (136-145)
[2020-05-16] MEDS: methylPREDNISolone Sod Succ 40 MG VIAL IVP SCH ×4 (05:43→23:34)
[2020-05-16] MEDS: Propofol 1,000 MG/100 ML VIAL IV PRN ×4 (05:43→23:34)
[2020-05-16] MEDS: HumaLOG 300 UNITS/3 ML VIAL SC PRN ×4 (05:45→21:52)
[2020-05-16] MEDS: fentaNYL Citrate/PF 2,000 MCG in Sodium Chloride 0.9% 60 ML IV SCH (05:47)
[2020-05-16] MEDS: PROVENTIL INHALER 6.7 G (200 INHALATIONS) INH SCH ×4 (07:51→23:19)
[2020-05-16] MEDS: Mometasone 200 MCG/Formoterol 5 MCG 120 PUFF INHALER INH SCH ×2 (07:51→19:34)
[2020-05-16] MEDS: Cefepime 1 GM in Sodium Chloride 0.9% 100 ML IVPB SCH ×2 (08:01→20:14)
[2020-05-16] MEDS: Enoxaparin Sodium 80 MG/0.8 ML SYRINGE SC SCH ×2 (08:01→20:14)
[2020-05-16 08:02] LABS: Actual Bicarbonate (HCO3a) 28.2 mEq/L (22-28); Base Excess (BEa) 4.2 mEq/L (-2.0 to +3.0); CO2 Tension 40.1 mmHg (35.0-45.0); Calcium, Ionized (arterial) 1.05 mmol/L (1.12-1.30); Carboxyhemoglobin (COHb) 0.3 gm% (0.0-3.0); Hemoglobin (Hb) 10.5 g/dL (12.0-16.0); O2 Tension (PaO2), arterial 70.7 mmHg (> 80.0); Potassium - ABG Lab 4.01 mmol/L (3.70-5.30); pH, Arterial 7.47 (7.35-7.45)
[2020-05-16] MEDS: Aspirin 81 mg Enteric Coated Tablet PO SCH (08:02)
[2020-05-16] MEDS: Amlodipine 10 MG TAB PO SCH (08:02)
[2020-05-16] MEDS: Famotidine/PF 20 mg/2ml Vial SLOW IVP SCH ×2 (08:03→20:15)
[2020-05-16] MEDS: Insulin Glargine 40 UNITS in Pre-Filled Syringe 1 EACH SC SCH (08:03)
[2020-05-16] MEDS: Carvedilol 6.25 MG TAB PO SCH ×2 (08:03→17:22)
[2020-05-16] MEDS: hydrALAZINE 25 MG TAB PO SCH ×3 (08:03→20:15)
[2020-05-16 08:04] LABS: ALV-art Gradient 200.025 mmHg (0-20); Puncture Site RR
[2020-05-16] MEDS: Azithromycin 500 MG in Sodium Chloride 0.9% 250 ML 250 ML IVPB SCH (08:04)
[2020-05-16] MEDS: Sodium Chloride 0.9% 1,000 ML IV SCH ×2 (11:28→23:34)
--- NOTE | 2020-05-16 15:27 | PDOC.HOSPP ---
- Subjective Encounter Date: 05/16/20 non-verbal (Remains intubated.) - Objective Vital Signs & Weight: Vital Signs (12 hours) Temp Pulse Resp BP Pulse Ox 05/16/20 15:06 61 143/88 H 05/16/20 14:11 61 143/88 H 05/16/20 14:00 16 05/16/20 12:00 99.1 F 16 05/16/20 10:16 62 148/63 H 05/16/20 10:00 16 05/16/20 08:03 61 166/71 H 05/16/20 08:02 64 166/71 H 05/16/20 08:00 99.3 F 16 100 05/16/20 07:52 58 L 165/63 H 05/16/20 06:00 16 05/16/20 05:00 97.8 F 05/16/20 04:00 16 Weight Admit Weight 156 lb Weight 163 lb 2.273 oz Most Recent Monitor Data Heart Rate from ECG 62 NIBP 143/55 NIBP BP-Mean 84 Respiration from ECG 16 SpO2 100 I&O: 05/15/20 05/16/20 05/17/20 06:59 06:59 06:59 Intake Total 3212.7 3078 100 Output Total 2320 2680 1605 Balance 892.7 398 -1505 Result Diagrams: 05/16/20 04:15 05/16/20 04:15 Additional Labs: Accuchecks 05/16/20 05/15/20 05/15/20 08:55 22:19 15:48 POC Glucose 343 H 318 H 301 H 05/15/20 10:17 POC Glucose 294 H Hospitalist ROS - Medication Medications: Active Medications Generic Name Dose Route Start Last Admin Trade Name Freq PRN Reason Stop Dose Admin Acetaminophen 650 mg 05/07/20 19:41 05/13/20 16:53 Acetaminophen 325 Mg Tab PO 650 mg Q4H PRN Administration Headache/Fever or Pain Albuterol Sulfate 2 puff 05/07/20 19:00 05/16/20 14:05 Proventil Inhaler 6.7 G (200 Inhalations) INH 2 puff [id number] [place] Administration Alprazolam 0.25 mg 05/08/20 15:46 05/08/20 20:11 Alprazolam 0.25 Mg Tab PO 0.25 mg BIDPRN PRN Administration Anxiety Amlodipine Besylate 10 mg 05/14/20 09:00 05/16/20 08:02 Amlodipine 10 Mg Tab PO 10 mg DAILY [place] Administration Aspirin 81 mg 05/09/20 09:00 05/16/20 08:02 Aspirin 81 Mg Enteric Coated Tablet PO 81 mg DAILY [place] Administration Atorvastatin Calcium 10 mg 05/08/20 21:00 05/15/20 20:01 Atorvastatin Calcium 10 Mg Tab PO 10 mg HS [place] Administration Carvedilol 6.25 mg 05/12/20 08:00 05/16/20 08:03 Carvedilol 6.25 Mg Tab PO 6.25 mg BID-WM [place] Administration Enoxaparin Sodium 70 mg 05/07/20 21:00 05/16/20 08:01 Enoxaparin Sodium 80 Mg/0.8 Ml Syringe SC 70 mg 0900,2100 [place] Administration Famotidine 20 mg 05/07/20 21:00 05/16/20 08:03 Famotidine/Pf 20 Mg/2ml Vial SLOW IVP 20 mg BID [place] Administration Hydralazine HCl 25 mg 05/11/20 09:00 05/16/20 15:06 Hydralazine 25 Mg Tab PO 25 mg TID [place] Administration Cefepime HCl 1 gm/ Sodium 100 mls @ 200 mls/hr 05/07/20 21:00 05/16/20 08:01 Chloride IVPB 100 mls Q12HR [place] Administration Azithromycin 500 mg/ Sodium 250 mls @ 250 mls/hr 05/08/20 08:00 05/16/20 08:04 Chloride IVPB 250 mls 0800 [place] Administration Fentanyl Citrate 2,000 mcg/ 100 mls @ 0 mls/hr 05/09/20 07:30 05/16/20 05:47 Sodium Chloride IV 06/08/20 07:30 100 mls INF [place] Administration Protocol Per Protocol Dopamine HCl/Dextrose 250 mls @ 7.961 mls/hr 05/10/20 16:05 05/10/20 20:37 Dopamine 400 Mg/D5w 250 Ml IVPB 250 mls INF PRN Administration .BRADYCARDIA 40s PRN Protocol 3 MCG/KG/MIN Sodium Chloride 1,000 mls @ 50 mls/hr 05/12/20 09:30 05/16/20 11:28 Normal Saline 0.9% IV Not Given .Q20H [place] Insulin Glargine 40 units/ 0.4 mls @ 0 mls/hr 05/15/20 09:00 05/16/20 08:03 Miscellaneous Medication SC 0.4 mls QAM [place] Administration Insulin Glargine 30 units/ 0.3 mls @ 0 mls/hr 05/15/20 21:00 05/15/20 20:01 Miscellaneous Medication SC 0.3 mls HS [place] Administration Insulin Human Lispro 0 units 05/07/20 20:06 05/16/20 09:00 Humalog 300 Units/3 Ml Vial SC 5 unit .MILD SLIDING SCALE PRN Administration Mild Correctional Scale Insulin Human Lispro 0 units 05/07/20 20:06 05/11/20 21:06 Humalog 300 Units/3 Ml Vial SC 3 unit .BEDTIME SLIDING SC PRN Administration Bedtime Correctional Scale Labetalol HCl 10 mg 05/07/20 10:55 05/16/20 00:13 Labetalol Hcl 100 Mg/20 Ml Vial SLOW IVP 10 mg Q4H PRN Administration SBP Greater Than 180 Lorazepam 2 mg 05/09/20 07:30 05/15/20 08:22 Lorazepam 2 Mg/Ml Vial SLOW IVP 06/08/20 07:30 2 mg Q1H PRN Administration Breakthrough agitation Methylprednisolone Sodium Succinate 40 mg 05/07/20 18:00 05/16/20 11:27 Methylprednisolone Sod Succ 40 Mg Vial IVP 40 mg Q6HR [place] Administration Mometasone Furoate/Formoterol Fumar 2 puff 05/07/20 18:30 05/16/20 07:51 Mometasone 200 Mcg/Formoterol 5 Mcg 120 Puff Inhaler INH 2 puff BID-RT [place] Administration Propofol 1,000 mg 05/09/20 07:30 05/16/20 11:27 Propofol 1,000 Mg/100 Ml Vial IV 06/08/20 07:30 1,000 mg INF PRN Administration TO ACHIEVE GOAL RASS Protocol Sodium Chloride 10 ml 05/08/20 21:00 05/16/20 08:01 Flush - Normal Saline 10 Ml Syringe IVF 10 ml Q12HR [place] Administration Vecuronium [place] 10 mg 05/09/20 09:52 05/15/20 02:40 Vecuronium 10 Mg Vial IVP 10 mg Q1H PRN Administration PRONING/VENT COMPLIANCE Hosp A/P - Plan This is a 64 years old pleasant female, who has significant past medical history of diabetes type 2, hypertension, who was diagnosed with Covid- 19 about a week ago presented to the ED with worsening dyspnea and hypoxia Acute hypoxicrespiratory failure - secondary to COVID-19 --pt remains intubated Antibiotics discontinued. Continue corticosteroids. Status post remdesivir and convalescent plasma --Continue vent management per pulmonology. COVID-19 pneumonia --Management as above Diabetes type 2 Sugar levels better controlled on Lantus to 40 units in the morning and 30 units in the evening. Hypertensive urgency - BP improved --cont Ramipril, Coreg, and amlodipine. --prn Vasotec and Labetalol prn (shortage on hydralazine) Dyslipidemia --resume statin Transient episode of SVT --resolved. d/t above. Add Coreg for rate controlled DVT ppx: Lovenox therapeutic GI ppx: Pepcid Code Status: Full code Anticipated Dispo: Home when medically stable.
[2020-05-16] MEDS: Insulin Glargine 30 UNITS in Pre-Filled Syringe 1 EACH SC SCH (20:14)
[2020-05-16] MEDS: Atorvastatin Calcium 10 MG TAB PO SCH (20:15)
--- NOTE | 2020-05-16 21:09 | PRG ---
DATE OF SERVICE: 05/16/2020 SUBJECTIVE: Bhakti Watts remains clinically unchanged. She is still mechanically ventilated. OBJECTIVE: VITAL SIGNS: Blood pressure 165/85, heart rate is in 60s, FiO2 is at 40, respiratory rates in the teens. LUNGS: Unchanged. HEART: Unchanged. ABDOMEN: Unchanged. LABORATORY DATA: White count 11.4, hemoglobin 10.1, platelets 247. Sodium 146, potassium 4.1, chloride 111, bicarb 20, BUN 32, creatinine 0.74. PH 7.47, CO2 of 40, pO2 of 70. IMPRESSION: Respiratory failure associated with COVID pneumonia, clinically stable, making slow progress. Job ID: [id number]
[2020-05-17] MEDS: fentaNYL Citrate/PF 2,000 MCG in Sodium Chloride 0.9% 60 ML IV SCH ×2 (01:18→20:35)
[2020-05-17] MEDS: methylPREDNISolone Sod Succ 40 MG VIAL IVP SCH ×3 (04:55→17:56)
[2020-05-17] MEDS: HumaLOG 300 UNITS/3 ML VIAL SC PRN ×3 (05:22→20:43)
[2020-05-17 05:52] LABS: #Lymphocytes 0.3 thou/uL (1.20-3.40); #Monocytes 0.3 thou/uL (0.11-0.59); #Neutrophils 10.8 thou/uL (1.40-6.50); %Lymphocytes 2.7 % (21.0-51.0); %Monocytes 2.9 % (0.0-10.0); %Neutrophils 94.4 % (42.0-75.0); Hemoglobin 9.6 g/dL (12.0-16.0); Mean Corpuscular HGB CONC 32.9 g/dL (32.0-36.0); Mean Corpuscular Hemoglobin 30.4 pg (27.0-31.0); Mean Corpuscular Volume 92.3 fL (78.0-98.0); Platelet Count 209 thou/uL (130-400); RBC Distribution Width 13.3 % (11.5-14.5); Red Blood Cell (RBC) Count 3.16 mill/uL (4.20-5.40); White Blood Cell (WBC) Count 11.4 thou/uL (4.8-10.8)
[2020-05-17 06:04] LABS: Anion Gap 10 mmol/L (10-20); BUN (Urea Nitrogen) 30 mg/dL (9.8-20.1); Calc. Creatinine Clearance 90 mL/min (70-130); Calcium 7.2 mg/dL (7.8-10.44); Carbon Dioxide 28 mmol/L (23-31); Chloride 113 mmol/L (98-107); Estimated GFR-MDRD 82; Glucose 290 mg/dL (80-115); Potassium 4.1 mmol/L (3.5-5.1); Sodium 147 mmol/L (136-145)
[2020-05-17] MEDS: PROVENTIL INHALER 6.7 G (200 INHALATIONS) INH SCH ×3 (07:16→18:08)
[2020-05-17] MEDS: Mometasone 200 MCG/Formoterol 5 MCG 120 PUFF INHALER INH SCH ×2 (07:16→18:09)
[2020-05-17] MEDS: Propofol 1,000 MG/100 ML VIAL IV PRN ×3 (07:18→20:02)
[2020-05-17] MEDS: Cefepime 1 GM in Sodium Chloride 0.9% 100 ML IVPB SCH (07:18)
[2020-05-17] MEDS: Famotidine/PF 20 mg/2ml Vial SLOW IVP SCH ×2 (07:19→20:03)
[2020-05-17] MEDS: hydrALAZINE 25 MG TAB PO SCH ×3 (07:19→20:03)
[2020-05-17] MEDS: Amlodipine 10 MG TAB PO SCH (07:20)
[2020-05-17] MEDS: Carvedilol 6.25 MG TAB PO SCH ×2 (07:20→17:56)
[2020-05-17 07:21] LABS: Actual Bicarbonate (HCO3a) 26.8 mEq/L (22-28); Base Excess (BEa) 3.6 mEq/L (-2.0 to +3.0); CO2 Tension 35.5 mmHg (35.0-45.0); Carboxyhemoglobin (COHb) 0.6 gm% (0.0-3.0); O2 Tension (PaO2), arterial 74.1 mmHg (> 80.0); Potassium - ABG Lab 4.02 mmol/L (3.70-5.30)
[2020-05-17] MEDS: Aspirin 81 mg Enteric Coated Tablet PO SCH (07:21)
[2020-05-17] MEDS: Enoxaparin Sodium 80 MG/0.8 ML SYRINGE SC SCH ×2 (07:21→20:04)
[2020-05-17 07:23] LABS: Puncture Site RRA
[2020-05-17 07:24] LABS: ALV-art Gradient 166.725 mmHg (0-20)
[2020-05-17] MEDS: Azithromycin 500 MG in Sodium Chloride 0.9% 250 ML 250 ML IVPB SCH (08:14)
[2020-05-17] MEDS: Insulin Glargine 40 UNITS in Pre-Filled Syringe 1 EACH SC SCH (09:37)
[2020-05-17] MEDS: Acetaminophen 325 MG TAB PO PRN (11:45)
[2020-05-17] MEDS: Sodium Chloride 0.9% 1,000 ML IV SCH (16:14)
--- NOTE | 2020-05-17 16:19 | PRG ---
DATE OF SERVICE: 05/17/2020 OBJECTIVE: VITAL SIGNS: Heart rates in the 50s, blood pressure 155/62, respiratory rates in the teens. LUNGS: Unchanged. HEART: Unchanged. ABDOMEN: Unchanged. LABORATORY DATA: White count 11.4, hemoglobin 9.6, platelets 209. Sodium 147, potassium 4.1, chloride 113, bicarb 28, BUN 30, creatinine 0.71. PH 7.5, CO2 of 35, PO2 of 74. IMPRESSION: COVID pneumonia with respiratory failure, making slow progress. PLAN: Continue supportive care. Probably start trying to decrease her bilevel here in the next day or so. Job ID: [id number]
--- NOTE | 2020-05-17 17:44 | PDOC.HOSPP ---
- Subjective Encounter Date: 05/17/20 non-verbal (On the Vent) - Objective Vital Signs & Weight: Vital Signs (12 hours) Temp Pulse Resp BP Pulse Ox 05/17/20 16:00 98.2 F 16 05/17/20 14:11 57 L 155/62 H 05/17/20 14:00 16 05/17/20 13:46 57 L 05/17/20 11:47 16 05/17/20 11:24 72 05/17/20 11:00 100.6 F H 05/17/20 10:00 16 05/17/20 08:00 99.0 F 16 99 05/17/20 07:20 59 L 165/85 H 05/17/20 07:19 59 L 05/17/20 07:14 59 L 05/17/20 06:00 16 Weight Admit Weight 156 lb Weight 161 lb 13.109 oz Most Recent Monitor Data Heart Rate from ECG 75 NIBP 162/66 NIBP BP-Mean 98 Respiration from ECG 16 SpO2 98 I&O: 05/16/20 05/17/20 05/18/20 06:59 06:59 06:59 Intake Total 3078 1579 180 Output Total 2680 3163 1070 Balance 138 -0681 -684 Result Diagrams: 05/17/20 05:07 05/17/20 05:07 Additional Labs: Accuchecks 05/17/20 05/17/20 05/16/20 09:31 05:04 21:25 POC Glucose 257 H 267 H 305 H Hospitalist ROS - Medication Medications: Active Medications Generic Name Dose Route Start Last Admin Trade Name Freq PRN Reason Stop Dose Admin Acetaminophen 650 mg 05/07/20 19:41 05/17/20 11:45 Acetaminophen 325 Mg Tab PO 650 mg Q4H PRN Administration Headache/Fever or Pain Albuterol Sulfate 2 puff 05/07/20 19:00 05/17/20 13:44 Proventil Inhaler 6.7 G (200 Inhalations) INH 2 puff [id number] [place] Administration Alprazolam 0.25 mg 05/08/20 15:46 05/08/20 20:11 Alprazolam 0.25 Mg Tab PO 0.25 mg BIDPRN PRN Administration Anxiety Amlodipine Besylate 10 mg 05/14/20 09:00 05/17/20 07:20 Amlodipine 10 Mg Tab PO 10 mg DAILY [place] Administration Aspirin 81 mg 05/09/20 09:00 05/17/20 07:21 Aspirin 81 Mg Enteric Coated Tablet PO 81 mg DAILY [place] Administration Atorvastatin Calcium 10 mg 05/08/20 21:00 05/16/20 20:15 Atorvastatin Calcium 10 Mg Tab PO 10 mg HS [place] Administration Carvedilol 6.25 mg 05/12/20 08:00 05/17/20 07:20 Carvedilol 6.25 Mg Tab PO 6.25 mg BID-WM [place] Administration Enoxaparin Sodium 70 mg 05/07/20 21:00 05/17/20 07:21 Enoxaparin Sodium 80 Mg/0.8 Ml Syringe SC 70 mg 09,2100 [place] Administration Famotidine 20 mg 05/07/20 21:00 05/17/20 07:19 Famotidine/Pf 20 Mg/2ml Vial SLOW IVP 20 mg BID [place] Administration Hydralazine HCl 25 mg 05/11/20 09:00 05/17/20 14:11 Hydralazine 25 Mg Tab PO 25 mg TID [place] Administration Fentanyl Citrate 2,000 mcg/ 100 mls @ 0 mls/hr 05/09/20 07:30 05/17/20 01:18 Sodium Chloride IV 06/08/20 07:30 100 mls INF [place] Administration Protocol Per Protocol Dopamine HCl/Dextrose 250 mls @ 7.961 mls/hr 05/10/20 16:05 05/10/20 20:37 Dopamine 400 Mg/D5w 250 Ml IVPB 250 mls INF PRN Administration .BRADYCARDIA 40s PRN Protocol 3 MCG/KG/MIN Sodium Chloride 1,000 mls @ 50 mls/hr 05/12/20 09:30 05/17/20 16:14 Normal Saline 0.9% IV 1,000 mls .Q20H [place] Administration Insulin Glargine 40 units/ 0.4 mls @ 0 mls/hr 05/15/20 09:00 05/17/20 09:37 Miscellaneous Medication SC 0.4 mls QAM [place] Administration Insulin Glargine 30 units/ 0.3 mls @ 0 mls/hr 05/15/20 21:00 05/16/20 20:14 Miscellaneous Medication SC 0.3 mls HS [place] Administration Insulin Human Lispro 0 units 05/07/20 20:06 05/17/20 09:38 Humalog 300 Units/3 Ml Vial SC 4 unit .MILD SLIDING SCALE PRN Administration Mild Correctional Scale Insulin Human Lispro 0 units 05/07/20 20:06 05/16/20 21:52 Humalog 300 Units/3 Ml Vial SC 4 unit .BEDTIME SLIDING SC PRN Administration Bedtime Correctional Scale Labetalol HCl 10 mg 05/07/20 10:55 05/16/20 00:13 Labetalol Hcl 100 Mg/20 Ml Vial SLOW IVP 10 mg Q4H PRN Administration SBP Greater Than 180 Lorazepam 2 mg 05/09/20 07:30 05/15/20 08:22 Lorazepam 2 Mg/Ml Vial SLOW IVP 06/08/20 07:30 2 mg Q1H PRN Administration Breakthrough agitation Methylprednisolone Sodium Succinate 40 mg 05/07/20 18:00 05/17/20 11:03 Methylprednisolone Sod Succ 40 Mg Vial IVP 40 mg Q6HR [place] Administration Mometasone Furoate/Formoterol Fumar 2 puff 05/07/20 18:30 05/17/20 07:16 Mometasone 200 Mcg/Formoterol 5 Mcg 120 Puff Inhaler INH 2 puff BID-RT [place] Administration Propofol 1,000 mg 05/09/20 07:30 05/17/20 13:08 Propofol 1,000 Mg/100 Ml Vial IV 06/08/20 07:30 1,000 mg INF PRN Administration TO ACHIEVE GOAL RASS Protocol Sodium Chloride 10 ml 05/08/20 21:00 05/17/20 07:21 Flush - Normal Saline 10 Ml Syringe IVF 10 ml Q12HR [place] Administration Vecuronium [place] 10 mg 05/09/20 09:52 05/15/20 02:40 Vecuronium 10 Mg Vial IVP 10 mg Q1H PRN Administration PRONING/VENT COMPLIANCE - Exam ENT: normocephalic atraumatic, no oropharyngeal lesions Neck: supple Heart: RRR Respiratory: normal chest expansion, no tachypnea Extremities: no cyanosis, no clubbing Hosp A/P - Plan This is a 64 years old pleasant female, who has significant past medical history of diabetes type 2, hypertension, who was diagnosed with Covid- 19 about a week ago presented to the ED with worsening dyspnea and hypoxia Acute hypoxicrespiratory failure - secondary to COVID-19 --pt remains intubated Antibiotics discontinued. Continue corticosteroids. Status post remdesivir and convalescent plasma --Continue vent management per pulmonology. Hypernatremia and hyperchloremia -- Increase water flushes. COVID-19 pneumonia --Management as above Diabetes type 2 Sugar levels better controlled on Lantus to 40 units in the morning and 30 units in the evening. Hypertensive urgency - BP improved --cont Ramipril, Coreg, and amlodipine. --prn Vasotec and Labetalol prn (shortage on hydralazine) Dyslipidemia --resume statin Transient episode of SVT --resolved. d/t above. Add Coreg for rate controlled DVT ppx: Lovenox therapeutic GI ppx: Pepcid Code Status: Full code Anticipated Dispo: Home when medically stable.
[2020-05-17] MEDS: Insulin Glargine 30 UNITS in Pre-Filled Syringe 1 EACH SC SCH (20:03)
[2020-05-17] MEDS: Atorvastatin Calcium 10 MG TAB PO SCH (20:05)
[2020-05-17] MEDS: Labetalol HCl 100 MG/20 ML VIAL SLOW IVP PRN (22:42)
[2020-05-18] MEDS: methylPREDNISolone Sod Succ 40 MG VIAL IVP SCH ×4 (00:40→16:31)
[2020-05-18] MEDS: PROVENTIL INHALER 6.7 G (200 INHALATIONS) INH SCH ×4 (02:11→19:10)
[2020-05-18] MEDS: Propofol 1,000 MG/100 ML VIAL IV PRN ×4 (03:18→20:43)
[2020-05-18 04:28] LABS: #Lymphocytes 0.4 thou/uL (1.20-3.40); #Monocytes 0.4 thou/uL (0.11-0.59); #Neutrophils 12.9 thou/uL (1.40-6.50); %Eosinophils 0.2 % (0.0-10.0); %Lymphocytes 3.1 % (21.0-51.0); %Monocytes 2.7 % (0.0-10.0); Hemoglobin 10.3 g/dL (12.0-16.0); Mean Corpuscular Hemoglobin 30.4 pg (27.0-31.0); Mean Corpuscular Volume 92.1 fL (78.0-98.0); Mean Platelet Volume 10.3 fL (7.4-10.4); Platelet Count 198 thou/uL (130-400); RBC Distribution Width 13.3 % (11.5-14.5); Red Blood Cell (RBC) Count 3.37 mill/uL (4.20-5.40); White Blood Cell (WBC) Count 13.8 thou/uL (4.8-10.8)
[2020-05-18 04:47] LABS: Anion Gap 11 mmol/L (10-20); BUN (Urea Nitrogen) 33 mg/dL (9.8-20.1); Calc. Creatinine Clearance 96 mL/min (70-130); Calcium 7.6 mg/dL (7.8-10.44); Carbon Dioxide 28 mmol/L (23-31); Chloride 110 mmol/L (98-107); Estimated GFR-MDRD 88; Glucose 341 mg/dL (80-115); Sodium 145 mmol/L (136-145)
[2020-05-18] MEDS: Sodium Chloride 0.9% 1,000 ML IV SCH ×2 (05:18→10:00)
[2020-05-18] MEDS: HumaLOG 300 UNITS/3 ML VIAL SC PRN ×4 (05:28→21:11)
[2020-05-18] MEDS: Mometasone 200 MCG/Formoterol 5 MCG 120 PUFF INHALER INH SCH ×2 (06:56→19:10)
[2020-05-18 07:24] LABS: Actual Bicarbonate (HCO3a) 26.1 mEq/L (22-28); Base Excess (BEa) 1.8 mEq/L (-2.0 to +3.0); CO2 Tension 39.7 mmHg (35.0-45.0); Carboxyhemoglobin (COHb) 0.3 gm% (0.0-3.0); Hemoglobin (Hb) 10.4 g/dL (12.0-16.0); Potassium - ABG Lab 3.89 mmol/L (3.70-5.30); pH, Arterial 7.44 (7.35-7.45)
[2020-05-18 07:26] LABS: ALV-art Gradient 161.575 mmHg (0-20); Puncture Site LRA
[2020-05-18] MEDS: Lorazepam 2 MG/ML VIAL SLOW IVP PRN ×3 (07:37→16:31)
[2020-05-18] MEDS: Enoxaparin Sodium 80 MG/0.8 ML SYRINGE SC SCH ×2 (07:37→20:44)
[2020-05-18] MEDS: Famotidine 20 MG TAB PER TUBE SCH ×2 (07:37→20:45)
[2020-05-18] MEDS: hydrALAZINE 25 MG TAB PO SCH ×3 (07:38→20:44)
[2020-05-18] MEDS: Carvedilol 6.25 MG TAB PO SCH ×2 (07:38→16:31)
[2020-05-18] MEDS: Aspirin 81 mg Enteric Coated Tablet PO SCH (07:38)
[2020-05-18] MEDS: Amlodipine 10 MG TAB PO SCH (07:38)
[2020-05-18] MEDS: Insulin Glargine 40 UNITS in Pre-Filled Syringe 1 EACH SC SCH (09:10)
[2020-05-18] MEDS: fentaNYL Citrate/PF 2,000 MCG in Sodium Chloride 0.9% 60 ML IV SCH (12:57)
--- NOTE | 2020-05-18 15:26 | PDOC.HOSPP ---
- Subjective Encounter Date: 05/18/20 non-verbal - Objective Vital Signs & Weight: Vital Signs (12 hours) Temp Pulse Resp BP Pulse Ox 05/18/20 14:38 53 L 154/74 H 05/18/20 14:00 16 05/18/20 13:05 54 L 138/56 L 05/18/20 12:00 97.1 F L 16 05/18/20 11:20 54 L 138/56 L 05/18/20 10:00 16 05/18/20 08:00 96.7 F L 16 99 05/18/20 07:38 61 151/61 H 05/18/20 06:56 61 151/61 H 05/18/20 06:00 16 05/18/20 04:00 99.0 F 16 Weight Admit Weight 156 lb Weight 161 lb 2.526 oz Most Recent Monitor Data Heart Rate from ECG 53 NIBP 154/74 NIBP BP-Mean 100 Respiration from ECG 16 SpO2 99 I&O: 05/17/20 05/18/20 05/19/20 06:59 06:59 06:59 Intake Total 1579 3833 100 Output Total 3165 2860 840 Balance -1586 973 -740 Result Diagrams: 05/18/20 03:30 05/18/20 03:30 Additional Labs: Accuchecks 05/18/20 05/17/20 09:08 20:17 POC Glucose 268 H 290 H Hospitalist ROS - Medication Medications: Active Medications Generic Name Dose Route Start Last Admin Trade Name Davidq PRN Reason Stop Dose Admin Acetaminophen 650 mg 05/07/20 19:41 05/17/20 11:45 Acetaminophen 325 Mg Tab PO 650 mg Q4H PRN Administration Headache/Fever or Pain Albuterol Sulfate 2 puff 05/07/20 19:00 05/18/20 14:37 Proventil Inhaler 6.7 G (200 Inhalations) INH 2 puff [id number] [place] Administration Alprazolam 0.25 mg 05/08/20 15:46 05/08/20 20:11 Alprazolam 0.25 Mg Tab PO 0.25 mg BIDPRN PRN Administration Anxiety Amlodipine Besylate 10 mg 05/14/20 09:00 05/18/20 07:38 Amlodipine 10 Mg Tab PO 10 mg DAILY [place] Administration Aspirin 81 mg 05/09/20 09:00 05/18/20 07:38 Aspirin 81 Mg Enteric Coated Tablet PO 81 mg DAILY [place] Administration Atorvastatin Calcium 10 mg 05/08/20 21:00 05/17/20 20:05 Atorvastatin Calcium 10 Mg Tab PO 10 mg HS [place] Administration Carvedilol 6.25 mg 05/12/20 08:00 05/18/20 07:38 Carvedilol 6.25 Mg Tab PO 6.25 mg BID-WM [place] Administration Enoxaparin Sodium 70 mg 05/07/20 21:00 05/18/20 07:37 Enoxaparin Sodium 80 Mg/0.8 Ml Syringe SC 70 mg 0900,2100 [place] Administration Famotidine 20 mg 05/18/20 09:00 05/18/20 07:37 Famotidine 20 Mg Tab PER TUBE 20 mg BID [place] Administration Hydralazine HCl 25 mg 05/11/20 09:00 05/18/20 13:05 Hydralazine 25 Mg Tab PO 25 mg TID [place] Administration Fentanyl Citrate 2,000 mcg/ 100 mls @ 0 mls/hr 05/09/20 07:30 05/18/20 12:57 Sodium Chloride IV 06/08/20 07:30 100 mls INF [place] Administration Protocol Per Protocol Dopamine HCl/Dextrose 250 mls @ 7.961 mls/hr 05/10/20 16:05 05/10/20 20:37 Dopamine 400 Mg/D5w 250 Ml IVPB 250 mls INF PRN Administration .BRADYCARDIA 40s PRN Protocol 3 MCG/KG/MIN Sodium Chloride 1,000 mls @ 50 mls/hr 05/12/20 09:30 05/18/20 10:00 Normal Saline 0.9% IV 1,000 mls .Q20H [place] Administration Insulin Glargine 40 units/ 0.4 mls @ 0 mls/hr 05/15/20 09:00 05/18/20 09:10 Miscellaneous Medication SC 0.4 mls QAM [place] Administration Insulin Glargine 30 units/ 0.3 mls @ 0 mls/hr 05/15/20 21:00 05/17/20 20:03 Miscellaneous Medication SC 0.3 mls HS [place] Administration Insulin Human Lispro 0 units 05/07/20 20:06 05/18/20 09:11 Humalog 300 Units/3 Ml Vial SC 4 unit .MILD SLIDING SCALE PRN Administration Mild Correctional Scale Insulin Human Lispro 0 units 05/07/20 20:06 05/16/20 21:52 Humalog 300 Units/3 Ml Vial SC 4 unit .BEDTIME SLIDING SC PRN Administration Bedtime Correctional Scale Labetalol HCl 10 mg 05/07/20 10:55 05/17/20 22:42 Labetalol Hcl 100 Mg/20 Ml Vial SLOW IVP 10 mg Q4H PRN Administration SBP Greater Than 180 Lorazepam 2 mg 05/09/20 07:30 05/18/20 13:05 Lorazepam 2 Mg/Ml Vial SLOW IVP 06/08/20 07:30 2 mg Q1H PRN Administration Breakthrough agitation Methylprednisolone Sodium Succinate 40 mg 05/07/20 18:00 05/18/20 12:58 Methylprednisolone Sod Succ 40 Mg Vial IVP 40 mg Q6HR [place] Administration Mometasone Furoate/Formoterol Fumar 2 puff 05/07/20 18:30 05/18/20 06:56 Mometasone 200 Mcg/Formoterol 5 Mcg 120 Puff Inhaler INH 2 puff BID-RT [place] Administration Propofol 1,000 mg 05/09/20 07:30 05/18/20 07:36 Propofol 1,000 Mg/100 Ml Vial IV 06/08/20 07:30 1,000 mg INF PRN Administration TO ACHIEVE GOAL RASS Protocol Sodium Chloride 10 ml 05/08/20 21:00 05/18/20 07:38 Flush - Normal Saline 10 Ml Syringe IVF 10 ml Q12HR [place] Administration Vecuronium [place] 10 mg 05/09/20 09:52 05/15/20 02:40 Vecuronium 10 Mg Vial IVP 10 mg Q1H PRN Administration PRONING/VENT COMPLIANCE Hosp A/P - Plan This is a 64 years old pleasant female, who has significant past m edical history of diabetes type 2, hypertension, who was diagnosed with Covid-19 about a week ago presented to the ED with worsening dyspnea and hypoxia Acute hypoxicrespiratory failure - secondary to COVID-19 --pt remains intubated Antibiotics discontinued. Continue corticosteroids. Status post remdesivir and convalescent plasma --Continue vent management per pulmonology. --I updated the patient's son about her current condition. Hypernatremia and hyperchloremia -- Increase water flushes. COVID-19 pneumonia --Management as above Diabetes type 2 Sugar levels better controlled on Lantus to 40 units in the morning and 30 units in the evening. Hypertensive urgency - BP improved --cont Ramipril, Coreg, and amlodipine. --prn Vasotec and Labetalol prn (shortage on hydralazine) Dyslipidemia --resume statin Transient episode of SVT --resolved. d/t above. Add Coreg for rate controlled DVT ppx: Lovenox therapeutic GI ppx: Pepcid Code Status: Full code Anticipated Dispo: Home when medically stable.
[2020-05-18] MEDS: Insulin Glargine 30 UNITS in Pre-Filled Syringe 1 EACH SC SCH (20:43)
[2020-05-18] MEDS: Atorvastatin Calcium 10 MG TAB PO SCH (20:43)
[2020-05-19] MEDS: methylPREDNISolone Sod Succ 40 MG VIAL IVP SCH ×4 (00:53→17:07)
[2020-05-19] MEDS: PROVENTIL INHALER 6.7 G (200 INHALATIONS) INH SCH ×4 (01:22→17:13)
[2020-05-19] MEDS: Propofol 1,000 MG/100 ML VIAL IV PRN ×5 (02:40→22:32)
[2020-05-19 05:04] LABS: Anion Gap 9 mmol/L (10-20); BUN (Urea Nitrogen) 28 mg/dL (9.8-20.1); Calc. Creatinine Clearance 98 mL/min (70-130); Calcium 7.2 mg/dL (7.8-10.44); Carbon Dioxide 28 mmol/L (23-31); Chloride 111 mmol/L (98-107); Estimated GFR-MDRD Greater than 90; Glucose 295 mg/dL (80-115); Potassium 4.3 mmol/L (3.5-5.1); Sodium 144 mmol/L (136-145)
[2020-05-19] MEDS: Sodium Chloride 0.9% 1,000 ML IV SCH ×3 (05:14→20:38)
[2020-05-19] MEDS: fentaNYL Citrate/PF 2,000 MCG in Sodium Chloride 0.9% 60 ML IV SCH ×2 (05:14→20:54)
[2020-05-19] MEDS: HumaLOG 300 UNITS/3 ML VIAL SC PRN ×5 (05:55→21:15)
[2020-05-19 06:04] LABS: Band 16 % (5-11); Hemoglobin 9.1 g/dL (12.0-16.0); Lymphocytes 2 % (21-51); MDiff Complete? YES; Mean Corpuscular HGB CONC 31.9 g/dL (32.0-36.0); Mean Corpuscular Hemoglobin 29.3 pg (27.0-31.0); Mean Corpuscular Volume 91.8 fL (78.0-98.0); Mean Platelet Volume 9.9 fL (7.4-10.4); Monocytes 1 % (0-10); Neutrophil 81 % (42-75); Platelet Count 173 thou/uL (130-400); RBC Distribution Width 13.2 % (11.5-14.5); Red Blood Cell (RBC) Count 3.12 mill/uL (4.20-5.40); White Blood Cell (WBC) Count 13.8 thou/uL (4.8-10.8)
[2020-05-19] MEDS: Aspirin 81 mg Enteric Coated Tablet PO SCH (07:40)
[2020-05-19] MEDS: Amlodipine 10 MG TAB PO SCH (07:40)
[2020-05-19] MEDS: Enoxaparin Sodium 80 MG/0.8 ML SYRINGE SC SCH ×2 (07:40→20:37)
[2020-05-19] MEDS: Carvedilol 6.25 MG TAB PO SCH ×2 (07:41→16:35)
[2020-05-19] MEDS: Famotidine 20 MG TAB PER TUBE SCH ×2 (07:41→20:37)
[2020-05-19] MEDS: hydrALAZINE 25 MG TAB PO SCH ×3 (07:41→20:35)
[2020-05-19 09:20] LABS: Actual Bicarbonate (HCO3a) 25.5 mEq/L (22-28); Base Excess (BEa) 1.6 mEq/L (-2.0 to +3.0); CO2 Tension 37.4 mmHg (35.0-45.0); Calcium, Ionized (arterial) 1.09 mmol/L (1.12-1.30); Carboxyhemoglobin (COHb) 0.3 gm% (0.0-3.0); Hemoglobin (Hb) 10.5 g/dL (12.0-16.0); O2 Tension (PaO2), arterial 66.3 mmHg (> 80.0); Potassium - ABG Lab 4.04 mmol/L (3.70-5.30); pH, Arterial 7.45 (7.35-7.45)
[2020-05-19 09:23] LABS: Puncture Site RRA
[2020-05-19] MEDS: Insulin Glargine 40 UNITS in Pre-Filled Syringe 1 EACH SC SCH (09:41)
[2020-05-19] MEDS ORDERED: Bisacodyl 10 MG SUPP PR PRN (09:55)
[2020-05-19] MEDS: Mometasone 200 MCG/Formoterol 5 MCG 120 PUFF INHALER INH SCH ×2 (11:47→17:13)
--- NOTE | 2020-05-19 12:13 | PRG ---
DATE OF SERVICE: 05/19/2020 SUBJECTIVE: Bhakti Watts remains intubated. OBJECTIVE: VITAL SINGS: Heart rate is in the 60s, blood pressure 160/60, respiratory rate 16, and oximetry is in the high 90s. LUNGS: Remarkable for coarse equal breath sounds. HEART: Regular rhythm. ABDOMEN: Soft. LABORATORY DATA: White count 13.8, hemoglobin 9.1, and platelets are 173. Sodium 144, potassium 4.3, chloride 111, bicarb 28, BUN 20, creatinine 0.65. PH 7.45, CO2 37, PO2 of 66. We may be able to switch her back to volume ventilation with lower PEEP this weekend. She is on bilevel 30/. We will cut her back to 24/03, continue forward. She is making slow progress. She is coming up on at least two weeks of illness. We may have to consider tracheostomy next week depending on her progress. We will check chest x-rays this weekend. We will continue with current supportive care measures. Job ID: [id number]
--- NOTE | 2020-05-19 14:27 | PDOC.HOSPP ---
- Subjective Encounter Date: 05/19/20 Subjective: No acute events overnight. Remains on mechanical ventilation. - Objective Vital Signs & Weight: Vital Signs (12 hours) Temp Pulse Resp BP Pulse Ox 05/19/20 13:56 70 165/70 H 05/19/20 12:33 70 165/70 H 05/19/20 12:00 98.1 F 16 05/19/20 10:00 16 05/19/20 08:00 96.4 F L 16 98 05/19/20 07:41 68 154/74 H 05/19/20 07:40 68 05/19/20 04:00 16 Weight Admit Weight 156 lb Weight 155 lb 13.869 oz Most Recent Monitor Data Heart Rate from ECG 66 NIBP 171/74 NIBP BP-Mean 106 Respiration from ECG 16 SpO2 99 I&O: 05/18/20 05/19/20 05/20/20 06:59 06:59 06:59 Intake Total 3833 1241.8 100 Output Total 2860 1845 410 Balance 973 -603.2 -310 Result Diagrams: 05/19/20 04:30 05/19/20 04:30 Additional Labs: Accuchecks 05/18/20 05/18/20 20:50 16:13 POC Glucose 243 H 259 H Hospitalist ROS - Medication Medications: Active Medications Generic Name Dose Route Start Last Admin Trade Name Freq PRN Reason Stop Dose Admin Acetaminophen 650 mg 05/07/20 19:41 05/17/20 11:45 Acetaminophen 325 Mg Tab PO 650 mg Q4H PRN Administration Headache/Fever or Pain Albuterol Sulfate 2 puff 05/07/20 19:00 05/19/20 13:57 Proventil Inhaler 6.7 G (200 Inhalations) INH Not Given [id number] [place] Amlodipine Besylate 10 mg 05/14/20 09:00 05/19/20 07:40 Amlodipine 10 Mg Tab PO 10 mg DAILY [place] Administration Aspirin 81 mg 05/09/20 09:00 05/19/20 07:40 Aspirin 81 Mg Enteric Coated Tablet PO 81 mg DAILY [place] Administration Atorvastatin Calcium 10 mg 05/08/20 21:00 05/18/20 20:43 Atorvastatin Calcium 10 Mg Tab PO 10 mg HS [place] Administration Bisacodyl 10 mg 05/19/20 09:55 05/19/20 11:46 Bisacodyl 10 Mg Supp [place] 10 mg DAILYPRN PRN Administration Constipation Carvedilol 6.25 mg 05/12/20 08:00 05/19/20 07:41 Carvedilol 6.25 Mg Tab PO 6.25 mg BID-WM [place] Administration Enoxaparin Sodium 70 mg 05/07/20 21:00 05/19/20 07:40 Enoxaparin Sodium 80 Mg/0.8 Ml Syringe SC 70 mg 0900,2100 [place] Administration Famotidine 20 mg 05/18/20 09:00 05/19/20 07:41 Famotidine 20 Mg Tab PER TUBE 20 mg BID [place] Administration Hydralazine HCl 25 mg 05/11/20 09:00 05/19/20 13:56 Hydralazine 25 Mg Tab PO 25 mg TID [place] Administration Dopamine HCl/Dextrose 250 mls @ 7.961 mls/hr 05/10/20 16:05 05/10/20 20:37 Dopamine 400 Mg/D5w 250 Ml IVPB 250 mls INF PRN Administration .BRADYCARDIA 40s PRN Protocol 3 MCG/KG/MIN Sodium Chloride 1,000 mls @ 50 mls/hr 05/12/20 09:30 05/19/20 05:14 Normal Saline 0.9% IV 1,000 mls .Q20H [place] Administration Insulin Glargine 40 units/ 0.4 mls @ 0 mls/hr 05/15/20 09:00 05/19/20 09:41 Miscellaneous Medication SC 0.4 mls QAM [place] Administration Insulin Glargine 30 units/ 0.3 mls @ 0 mls/hr 05/15/20 21:00 05/18/20 20:43 Miscellaneous Medication SC 0.3 mls HS [place] Administration Insulin Human Lispro 0 units 05/07/20 20:06 05/16/20 21:52 Humalog 300 Units/3 Ml Vial SC 4 unit .BEDTIME SLIDING SC PRN Administration Bedtime Correctional Scale Insulin Human Lispro 0 units 05/18/20 17:45 05/19/20 13:10 Humalog 300 Units/3 Ml Vial SC 4 unit .AGGRESSIVE SLIDING PRN Administration AGGRESSIVE SLIDING SCALE Protocol Labetalol HCl 10 mg 05/07/20 10:55 05/17/20 22:42 Labetalol Hcl 100 Mg/20 Ml Vial SLOW IVP 10 mg Q4H PRN Administration SBP Greater Than 180 Methylprednisolone Sodium Succinate 40 mg 05/07/20 18:00 05/19/20 11:46 Methylprednisolone Sod Succ 40 Mg Vial IVP 40 mg Q6HR [place] Administration Mometasone Furoate/Formoterol Fumar 2 puff 05/07/20 18:30 05/19/20 11:47 Mometasone 200 Mcg/Formoterol 5 Mcg 120 Puff Inhaler INH Not Given BID-RT [place] Propofol 1,000 mg 05/09/20 07:30 05/19/20 13:56 Propofol 1,000 Mg/100 Ml Vial IV 06/08/20 07:30 1,000 mg INF PRN Administration TO ACHIEVE GOAL RASS Protocol Sodium Chloride 10 ml 05/08/20 21:00 05/19/20 07:41 Flush - Normal Saline 10 Ml Syringe IVF 10 ml Q12HR [place] Administration Vecuronium [place] 10 mg 05/09/20 09:52 05/15/20 02:40 Vecuronium 10 Mg Vial IVP 10 mg Q1H PRN Administration PRONING/VENT COMPLIANCE Hosp A/P - Plan This is a 64 years old pleasant female, who has significant past medical history of diabetes type 2, hypertension, who was diagnosed with Covid-19 about a week ago presented to the ED with worsening dyspnea and hypoxia Acute hypoxicrespiratory failure - secondary to COVID-19 --pt remains intubated Antibiotics discontinued. Continue corticosteroids. Status post remdesivir and convalescent plasma --Continue vent management per pulmonology. --I updated the patient's son about her current condition. --Tracheostomy being considered next week if the patient does not improve Hypernatremia and hyperchloremia -- Increase water flushes. Constipation MiraLAX and Dulcolax suppositories initiated. COVID-19 pneumonia --Management as above Diabetes type 2 Sugar levels better controlled on Lantus to 40 units in the morning and 30 units in the evening. Hypertensive urgency - BP improved --cont Ramipril, Coreg, and amlodipine. --prn Vasotec and Labetalol prn (shortage on hydralazine) Dyslipidemia --resume statin Transient episode of SVT --resolved. d/t above. Add Coreg for rate controlled DVT ppx: Lovenox therapeutic GI ppx: Pepcid Code Status: Full code Anticipated Dispo: Home when medically stable.
[2020-05-19] MEDS ORDERED: Polyethylene Glycol 3350 17 GM Packet PER TUBE SCH (17:00)
[2020-05-19] MEDS: Labetalol HCl 100 MG/20 ML VIAL SLOW IVP PRN (17:12)
[2020-05-19] MEDS: Atorvastatin Calcium 10 MG TAB PO SCH (20:35)
[2020-05-19] MEDS: Insulin Glargine 30 UNITS in Pre-Filled Syringe 1 EACH SC SCH (20:37)
[2020-05-20] MEDS: PROVENTIL INHALER 6.7 G (200 INHALATIONS) INH SCH ×5 (00:51→23:52)
[2020-05-20] MEDS: methylPREDNISolone Sod Succ 40 MG VIAL IVP SCH ×4 (01:36→17:38)
[2020-05-20 05:43] LABS: Band 7 % (5-11); Hemoglobin 9.2 g/dL (12.0-16.0); Lymphocytes 2 % (21-51); MDiff Complete? YES; Mean Corpuscular HGB CONC 32.8 g/dL (32.0-36.0); Mean Corpuscular Hemoglobin 30.4 pg (27.0-31.0); Mean Corpuscular Volume 92.8 fL (78.0-98.0); Monocytes 8 % (0-10); Neutrophil 83 % (42-75); Platelet Count 153 thou/uL (130-400); RBC Distribution Width 13.5 % (11.5-14.5); Red Blood Cell (RBC) Count 3.03 mill/uL (4.20-5.40); White Blood Cell (WBC) Count 13.3 thou/uL (4.8-10.8)
[2020-05-20] MEDS: Mometasone 200 MCG/Formoterol 5 MCG 120 PUFF INHALER INH SCH ×2 (07:19→18:46)
[2020-05-20] MEDS: HumaLOG 300 UNITS/3 ML VIAL SC PRN ×5 (07:46→21:46)
--- NOTE | 2020-05-20 09:02 | PDOC.HOSPP ---
- Subjective Encounter Date: 05/20/20 Encounter Time: 11:00 Subjective: Patient doing better this AM. Tolerating pressure support. - Objective Vital Signs & Weight: Vital Signs (12 hours) Temp Pulse Resp BP 05/20/20 07:18 56 L 05/20/20 06:00 16 05/20/20 04:00 98.2 F 16 05/20/20 03:14 54 L 05/20/20 02:00 16 05/20/20 00:00 98.2 F 16 05/19/20 23:55 57 L 166/66 H 05/19/20 22:00 16 Weight Admit Weight 156 lb Weight 159 lb 13.362 oz Most Recent Monitor Data Heart Rate from ECG 56 NIBP 175/61 NIBP BP-Mean 99 Respiration from ECG 16 SpO2 98 I&O: 05/19/20 05/20/20 05/21/20 06:59 06:59 06:59 Intake Total 1241.8 3248.8 Output Total 1845 2460 Balance -603.2 788.8 Result Diagrams: 05/20/20 05:15 05/19/20 04:30 Additional Labs: Accuchecks 05/20/20 04:05 POC Glucose 260 H Hospitalist ROS - Review of Systems ROS unobtainable: due to endotracheal tube - Medication Medications: Active Medications Generic Name Dose Route Start Last Admin Trade Name Freq PRN Reason Stop Dose Admin Acetaminophen 650 mg 05/07/20 19:41 05/17/20 11:45 Acetaminophen 325 Mg Tab PO 650 mg Q4H PRN Administration Headache/Fever or Pain Albuterol Sulfate 2 puff 05/07/20 19:00 05/20/20 07:19 Proventil Inhaler 6.7 G (200 Inhalations) INH 2 puff [id number] [place] Administration Amlodipine Besylate 10 mg 05/14/20 09:00 05/19/20 07:40 Amlodipine 10 Mg Tab PO 10 mg DAILY [place] Administration Aspirin 81 mg 05/09/20 09:00 05/19/20 07:40 Aspirin 81 Mg Enteric Coated Tablet PO 81 mg DAILY [place] Administration Atorvastatin Calcium 10 mg 05/08/20 21:00 05/19/20 20:35 Atorvastatin Calcium 10 Mg Tab PO 10 mg HS [place] Administration Bisacodyl 10 mg 05/19/20 09:55 05/19/20 11:46 Bisacodyl 10 Mg Supp [place] 10 mg DAILYPRN PRN Administration Constipation Carvedilol 6.25 mg 05/12/20 08:00 05/19/20 16:35 Carvedilol 6.25 Mg Tab PO 6.25 mg BID-WM [place] Administration Enoxaparin Sodium 70 mg 05/07/20 21:00 05/19/20 20:37 Enoxaparin Sodium 80 Mg/0.8 Ml Syringe SC 70 mg 0900,2100 [place] Administration Famotidine 20 mg 05/18/20 09:00 05/19/20 20:37 Famotidine 20 Mg Tab PER TUBE 20 mg BID [place] Administration Hydralazine HCl 25 mg 05/11/20 09:00 05/19/20 20:35 Hydralazine 25 Mg Tab PO 25 mg TID [place] Administration Dopamine HCl/Dextrose 250 mls @ 7.961 mls/hr 05/10/20 16:05 05/10/20 20:37 Dopamine 400 Mg/D5w 250 Ml IVPB 250 mls INF PRN Administration .BRADYCARDIA 40s PRN Protocol 3 MCG/KG/MIN Sodium Chloride 1,000 mls @ 50 mls/hr 05/12/20 09:30 05/19/20 20:38 Normal Saline 0.9% IV 1,000 mls .Q20H [place] Administration Fentanyl Citrate 2,000 mcg/ 100 mls @ 0 mls/hr 05/19/20 20:45 05/19/20 20:54 Sodium Chloride IV 100 mls INF [place] Administration Protocol Per Protocol Insulin Human Lispro 0 units 05/07/20 20:06 05/16/20 21:52 Humalog 300 Units/3 Ml Vial SC 4 unit .BEDTIME SLIDING SC PRN Administration Bedtime Correctional Scale Insulin Human Lispro 0 units 05/18/20 17:45 05/20/20 07:46 Humalog 300 Units/3 Ml Vial SC 9 unit .AGGRESSIVE SLIDING PRN Administration AGGRESSIVE SLIDING SCALE Protocol Labetalol HCl 10 mg 05/07/20 10:55 05/19/20 17:12 Labetalol Hcl 100 Mg/20 Ml Vial SLOW IVP 10 mg Q4H PRN Administration SBP Greater Than 180 Methylprednisolone Sodium Succinate 40 mg 05/07/20 18:00 05/20/20 06:36 Methylprednisolone Sod Succ 40 Mg Vial IVP 40 mg Q6HR [place] Administration Mometasone Furoate/Formoterol Fumar 2 puff 05/07/20 18:30 05/20/20 07:19 Mometasone 200 Mcg/Formoterol 5 Mcg 120 Puff Inhaler INH 2 puff BID-RT [place] Administration Propofol 1,000 mg 05/09/20 07:30 05/19/20 22:32 Propofol 1,000 Mg/100 Ml Vial IV 06/08/20 07:30 1,000 mg INF PRN Administration TO ACHIEVE GOAL RASS Protocol Sodium Chloride 10 ml 05/08/20 21:00 05/19/20 20:38 Flush - Normal Saline 10 Ml Syringe IVF 10 ml Q12HR [place] Administration Vecuronium [place] 10 mg 05/09/20 09:52 05/15/20 02:40 Vecuronium 10 Mg Vial IVP 10 mg Q1H PRN Administration PRONING/VENT COMPLIANCE - Exam General - other findings: sedated on the vent ENT: moist mucosa ENT - other findings: ET tube in place Heart: RRR, no murmur, no gallops, no rubs Respiratory: CTAB, no wheezes, no rales, no ronchi Gastrointestinal: soft, non-tender, non-distended, normal bowel sounds Psychiatric - other findings: sedated on the vent Hosp A/P - Plan This is a 64 years old pleasant female, who has significant past medical history of diabetes type 2, hypertension, who was diagnosed with Covid- 19 about a week ago presented to the ED with worsening dyspnea and hypoxia Acute hypoxicrespiratory failure - secondary to COVID-19 --pt remains intubated Antibiotics discontinued. Continue corticosteroids. Status post remdesivir and convalescent plasma --Continue vent management per pulmonology. --Tracheostomy being considered next week if the patient does not improve, but may not be necessary given looking better today Hypernatremia and hyperchloremia- improved -- Increased water flushes. Constipation MiraLAX and Dulcolax suppositories initiated. BM today. COVID-19 pneumonia --Management as above Diabetes type 2 Sugar levels better controlled but still high on Lantus to 40 units in the morni ng and 30 units in the evening, increase to 50/40. Hypertensive urgency - BP improved --cont Ramipril, Coreg, and amlodipine. --prn Vasotec and Labetalol prn (shortage on hydralazine) Dyslipidemia --resumed statin Transient episode of SVT --resolved. d/t above. Added Coreg for rate control DVT ppx: Lovenox therapeutic GI ppx: Pepcid Code Status: Full code Anticipated Dispo: Overall poor prognosis, will need trach and prolonged post- hospital care
[2020-05-20] MEDS: Enoxaparin Sodium 80 MG/0.8 ML SYRINGE SC SCH ×2 (09:13→20:11)
[2020-05-20] MEDS: Propofol 1,000 MG/100 ML VIAL IV PRN ×4 (09:13→21:40)
[2020-05-20] MEDS: Polyethylene Glycol 3350 17 GM Packet PER TUBE SCH (09:13)
[2020-05-20] MEDS: Famotidine 20 MG TAB PER TUBE SCH ×2 (09:14→20:11)
[2020-05-20] MEDS: Amlodipine 10 MG TAB PO SCH (09:14)
[2020-05-20] MEDS: Aspirin 81 mg Enteric Coated Tablet PO SCH (09:14)
[2020-05-20] MEDS: hydrALAZINE 25 MG TAB PO SCH ×3 (09:14→20:12)
[2020-05-20] MEDS: Carvedilol 6.25 MG TAB PO SCH ×2 (09:14→17:37)
--- NOTE | 2020-05-20 10:29 | RAD ---
XR Chest 1 View Portable History: Ventilated patient Comparison: Radiograph May 15, 2020 Findings: Endotracheal tube tip above the tomas 3 cm. Small effusions. Airspace opacities are simila r. No pneumothorax. Enteric tube tip below diaphragm although out of field of view. Impression: Similar examination of the chest without improved lung aeration.
--- NOTE | 2020-05-20 10:36 | PRG ---
DATE OF SERVICE: 05/20/2020 TIME SPENT: 35 minutes of critical care time. SUBJECTIVE: The patient actually looks very good on mechanical ventilation today. OBJECTIVE: VITAL SIGNS: On exam, temperature 97.4, pulse 58, blood pressure 167/63, and O2 saturation 99%. 24-hour intake 3248, output 2460. Weight 159 pounds. HEENT: Unremarkable. NECK: No JVD. LUNGS: Clear anteriorly. CARDIOVASCULAR: S1 and S2. Regular. ABDOMEN: Soft. EXTREMITIES: Trace edema. IMAGING DATA: Her chest x-ray demonstrates bilateral infiltrates consistent with her COVID-19 pneumonia. Her ET tube looks to be in good position. LABORATORY DATA: ABG; pH of 7.45, pCO2 of 37, pO2 of 66. AA gradient of 172 that was on bilevel 30/10, FiO2 of 40%. White blood cell count 13.3, hematocrit 28.1, and platelet count 153. Sodium 144, potassium 4.3, chloride 111, CO2 of 28, BUN 28, creatinine 0.6, and glucose 225. ASSESSMENT: 1. COVID-19 pneumonia. 2. Acute respiratory failure, requiring mechanical ventilation. 3. Neuromuscular weakness. PLAN: I have actually been able to place her on CPAP this morning with fairly minimal settings and she is doing well. I am not sure where she is in terms of her neuromuscular weakness. I would like to transition her over to Precedex and see if that will be enough to sedate her while still allowing her to move around a little bit. We will follow. Job ID: [id number]
[2020-05-20] MEDS: fentaNYL Citrate/PF 2,000 MCG in Sodium Chloride 0.9% 60 ML IV SCH (11:21)
[2020-05-20] MEDS: Insulin Glargine 50 UNITS in Pre-Filled Syringe 1 EACH SC SCH (11:33)
[2020-05-20] MEDS: Labetalol HCl 100 MG/20 ML VIAL SLOW IVP PRN (15:39)
[2020-05-20] MEDS: Atorvastatin Calcium 10 MG TAB PO SCH (20:11)
[2020-05-20] MEDS: ALPRAZolam 0.25 MG TAB PO PRN (20:12)
[2020-05-20] MEDS: Insulin Glargine 40 UNITS in Pre-Filled Syringe 1 EACH SC SCH (20:15)
[2020-05-21] MEDS: methylPREDNISolone Sod Succ 40 MG VIAL IVP SCH ×5 (00:21→23:15)
[2020-05-21] MEDS: fentaNYL Citrate/PF 2,000 MCG in Sodium Chloride 0.9% 60 ML IV SCH ×3 (02:33→21:15)
[2020-05-21] MEDS: Propofol 1,000 MG/100 ML VIAL IV PRN ×4 (02:34→16:23)
[2020-05-21 05:02] LABS: Anion Gap 12 mmol/L (10-20); BUN (Urea Nitrogen) 25 mg/dL (9.8-20.1); Calc. Creatinine Clearance 102 mL/min (70-130); Calcium 7.8 mg/dL (7.8-10.44); Carbon Dioxide 27 mmol/L (23-31); Chloride 106 mmol/L (98-107); Estimated GFR-MDRD Greater than 90; Glucose 204 mg/dL (80-115); Potassium 4.4 mmol/L (3.5-5.1); Sodium 141 mmol/L (136-145)
[2020-05-21] MEDS: HumaLOG 300 UNITS/3 ML VIAL SC PRN ×3 (06:05→21:35)
[2020-05-21 06:56] LABS: Mean Corpuscular HGB CONC 34.4 g/dL (32.0-36.0); Mean Corpuscular Hemoglobin 31.2 pg (27.0-31.0); Mean Corpuscular Volume 90.8 fL (78.0-98.0); Mean Platelet Volume 10.1 fL (7.4-10.4); Platelet Count 143 thou/uL (130-400); RBC Distribution Width 13.8 % (11.5-14.5); White Blood Cell (WBC) Count 15.7 thou/uL (4.8-10.8)
[2020-05-21 06:57] LABS: Band 15 % (5-11); Lymphocytes 3 % (21-51); MDiff Complete? YES; Neutrophil 82 % (42-75)
[2020-05-21] MEDS: Mometasone 200 MCG/Formoterol 5 MCG 120 PUFF INHALER INH SCH ×2 (07:47→19:28)
[2020-05-21] MEDS: PROVENTIL INHALER 6.7 G (200 INHALATIONS) INH SCH ×3 (07:47→19:28)
[2020-05-21] MEDS: Enoxaparin Sodium 80 MG/0.8 ML SYRINGE SC SCH ×2 (08:04→21:12)
[2020-05-21] MEDS: Polyethylene Glycol 3350 17 GM Packet PER TUBE SCH (08:04)
[2020-05-21] MEDS: Carvedilol 6.25 MG TAB PO SCH ×2 (08:05→16:23)
[2020-05-21] MEDS: Amlodipine 10 MG TAB PO SCH (08:05)
[2020-05-21] MEDS: hydrALAZINE 25 MG TAB PO SCH ×3 (08:05→21:12)
[2020-05-21] MEDS: Aspirin 81 mg Enteric Coated Tablet PO SCH (08:06)
[2020-05-21] MEDS: Famotidine 20 MG TAB PER TUBE SCH ×2 (08:06→21:12)
--- NOTE | 2020-05-21 08:32 | RAD ---
XR Chest 1 View Portable History: Ventilated patient Comparison: Radiograph prior day Findings: Heart size is enlarged. Endotracheal tube tip above the tomas 2.3 cm. Enteric tube tip bel ow diaphragm although out of field of view. Multifocal airspace opacities are similar. No acute osseous abnormality. Impression: Similar examination of the chest.
--- NOTE | 2020-05-21 09:09 | PDOC.HOSPP ---
- Subjective Encounter Date: 05/21/20 Encounter Time: 10:30 non-verbal Subjective: Patient remains sedated on the vent. - Objective Vital Signs & Weight: Vital Signs (12 hours) Temp Pulse Resp BP Pulse Ox 05/21/20 08:05 61 174/75 H 05/21/20 08:00 97.0 F L 22 H 96 05/21/20 07:47 58 L 05/21/20 06:00 16 05/21/20 04:00 98.1 F 16 05/21/20 03:52 61 05/21/20 02:00 16 05/21/20 00:00 98.7 F 16 05/20/20 23:04 63 05/20/20 22:00 16 Weight Admit Weight 156 lb Weight 160 lb 7.944 oz Most Recent Monitor Data Heart Rate from ECG 62 NIBP 174/75 NIBP BP-Mean 108 Respiration from ECG 18 SpO2 96 I&O: 05/20/20 05/21/20 05/22/20 06:59 06:59 06:59 Intake Total 3248.8 2343.3 190 Output Total 2460 2170 35 Balance 788.8 173.3 155 Result Diagrams: 05/21/20 04:15 05/21/20 04:15 Additional Labs: Accuchecks 05/21/20 05/20/20 05/20/20 04:12 20:26 16:00 POC Glucose 194 H 202 H 255 H 05/20/20 05/19/20 05/19/20 09:46 13:10 10:05 POC Glucose 225 H 264 H 278 H 05/19/20 05/19/20 08:27 04:49 POC Glucose 336 H 281 H Hospitalist ROS - Review of Systems ROS unobtainable: due to endotracheal tube - Medication Medications: Active Medications Generic Name Dose Route Start Last Admin Trade Name Freq PRN Reason Stop Dose Admin Acetaminophen 650 mg 05/07/20 19:41 05/17/20 11:45 Acetaminophen 325 Mg Tab PO 650 mg Q4H PRN Administration Headache/Fever or Pain Albuterol Sulfate 2 puff 05/07/20 19:00 05/21/20 07:47 Proventil Inhaler 6.7 G (200 Inhalations) INH 2 puff [id number] [place] Administration Alprazolam 0.25 mg 05/18/20 16:51 05/20/20 20:12 Alprazolam 0.25 Mg Tab PO 0.25 mg BIDPRN PRN Administration Anxiety Amlodipine Besylate 10 mg 05/14/20 09:00 05/21/20 08:05 Amlodipine 10 Mg Tab PO 10 mg DAILY [place] Administration Aspirin 81 mg 05/09/20 09:00 05/21/20 08:06 Aspirin 81 Mg Enteric Coated Tablet PO 81 mg DAILY [place] Administration Atorvastatin Calcium 10 mg 05/08/20 21:00 05/20/20 20:11 Atorvastatin Calcium 10 Mg Tab PO 10 mg HS [place] Administration Bisacodyl 10 mg 05/19/20 09:55 05/19/20 11:46 Bisacodyl 10 Mg Supp [place] 10 mg DAILYPRN PRN Administration Constipation Carvedilol 6.25 mg 05/12/20 08:00 05/21/20 08:05 Carvedilol 6.25 Mg Tab PO 6.25 mg BID-WM [place] Administration Enoxaparin Sodium 70 mg 05/07/20 21:00 05/21/20 08:04 Enoxaparin Sodium 80 Mg/0.8 Ml Syringe SC 70 mg 09,2100 [place] Administration Famotidine 20 mg 05/18/20 09:00 05/21/20 08:06 Famotidine 20 Mg Tab PER TUBE 20 mg BID [place] Administration Hydralazine HCl 25 mg 05/11/20 09:00 05/21/20 08:05 Hydralazine 25 Mg Tab PO 25 mg TID [place] Administration Fentanyl Citrate 2,000 mcg/ 100 mls @ 0 mls/hr 05/19/20 20:45 05/21/20 02:33 Sodium Chloride IV 100 mls INF [place] Administration Protocol Per Protocol Insulin Glargine 40 units/ 0.4 mls @ 0 mls/hr 05/20/20 21:00 05/20/20 20:15 Miscellaneous Medication SC 0.4 mls HS [place] Administration Insulin Glargine 50 units/ 0.5 mls @ 0 mls/hr 05/20/20 09:00 05/20/20 11:33 Miscellaneous Medication SC 0.5 mls QAM [place] Administration Dexmedetomidine HCl 400 mcg/ 100 mls @ 0 mls/hr 05/20/20 10:30 05/20/20 22:30 Sodium Chloride IVPB 100 mls INF [place] Administration Protocol Per Protocol Insulin Human Lispro 0 units 05/07/20 20:06 05/16/20 21:52 Humalog 300 Units/3 Ml Vial SC 4 unit .BEDTIME SLIDING SC PRN Administration Bedtime Correctional Scale Insulin Human Lispro 0 units 05/18/20 17:45 05/21/20 06:05 Humalog 300 Units/3 Ml Vial SC 3 unit .AGGRESSIVE SLIDING PRN Administration AGGRESSIVE SLIDING SCALE Protocol Labetalol HCl 10 mg 05/07/20 10:55 05/20/20 15:39 Labetalol Hcl 100 Mg/20 Ml Vial SLOW IVP 10 mg Q4H PRN Administration SBP Greater Than 180 Methylprednisolone Sodium Succinate 40 mg 05/07/20 18:00 05/21/20 06:05 Methylprednisolone Sod Succ 40 Mg Vial IVP 40 mg Q6HR [place] Administration Mometasone Furoate/Formoterol Fumar 2 puff 05/07/20 18:30 05/21/20 07:47 Mometasone 200 Mcg/Formoterol 5 Mcg 120 Puff Inhaler INH 2 puff BID-RT [place] Administration Polyethylene Glycol 17 gm 05/20/20 09:00 05/21/20 08:04 Polyethylene Glycol 3350 17 Gm Packet PER TUBE 17 gm DAILY [place] Administration Propofol 1,000 mg 05/09/20 07:30 05/21/20 07:26 Propofol 1,000 Mg/100 Ml Vial IV 06/08/20 07:30 1,000 mg INF PRN Administration TO ACHIEVE GOAL RASS Protocol Sodium Chloride 10 ml 05/08/20 21:00 05/21/20 08:06 Flush - Normal Saline 10 Ml Syringe IVF 10 ml Q12HR [place] Administration - Exam General - other findings: sedated on the vent ENT: moist mucosa Heart: RRR, no murmur, no gallops, no rubs Respiratory: CTAB, no wheezes, no rales, no ronchi Gastrointestinal: soft, non-tender, non-distended, normal bowel sounds Psychiatric - other findings: sedated on the vent Hosp A/P - Plan This is a 64 years old pleasant female, who has significant past medical history of diabetes type 2, hypertension, who was diagnosed with Covid- 19 about a week ago presented to the ED with worsening dyspnea and hypoxia Acute hypoxicrespiratory failure - secondary to COVID-19 --pt remains intubated Antibiotics discontinued. Continue corticosteroids. Status post remdesivir and convalescent plasma --Continue vent management per pulmonology. --Tracheostomy being considered next week if the patient does not improve, but may not be necessary given looking better today Hypernatremia and hyperchloremia- improved -- Increased water flushes. Constipation MiraLAX and Dulcolax suppositories initiated. Having BMs now. COVID-19 pneumonia --Management as above Diabetes type 2 Sugar levels better controlled on Lantus to 50 units in the morning and 40 units in the evening. Hypertensive urgency - BP improved --cont Ramipril, Coreg, and amlodipine. --prn Vasotec and Labetalol prn (shortage on hydralazine) Dyslipidemia --resumed statin Transient episode of SVT --resolved. d/t above. Added Coreg for rate control DVT ppx: Lovenox therapeutic GI ppx: Pepcid Code Status: Full code Anticipated Dispo: Overall poor prognosis, will need trach and prolonged post- hospital care
[2020-05-21] MEDS: Insulin Glargine 50 UNITS in Pre-Filled Syringe 1 EACH SC SCH (09:19)
--- NOTE | 2020-05-21 10:53 | PRG ---
DATE OF SERVICE: 05/21/2020 SUBJECTIVE: The patient remains intubated on mechanical ventilation for COVID-19 pneumonia. She was actually able to do some spontaneous breathing yesterday, on CPAP mode. OBJECTIVE: VITAL SIGNS: Temperature 97, pulse 61, blood pressure 171/68. 24-hour intake 2343, output 2170. HEENT: Unremarkable. NECK: No adenopathy or JVD. LUNGS: Coarse breath sounds. CARDIAC: S1, S2. Regular. ABDOMEN: Soft. EXTREMITIES: Trace edema. LABORATORY DATA: White blood cell count 15.7, hematocrit 29.1, and platelet count 143. Sodium 141, potassium 4.4, chloride 106, CO2 of 27, BUN 25, creatinine 0.6, glucose 204. X-ray shows no acute change. ASSESSMENT: 1. COVID-19 pneumonia with acute respiratory failure, requiring mechanical ventilation. 2. Severe neuromuscular weakness. PLAN: We will retry her on CPAP today and see how she does. I am still not very happy with her mental status, even on Precedex. She is very obtunded. Job ID: [id number]
[2020-05-21] MEDS: Insulin Glargine 40 UNITS in Pre-Filled Syringe 1 EACH SC SCH (21:12)
[2020-05-21] MEDS: Atorvastatin Calcium 10 MG TAB PO SCH (21:12)
[2020-05-21] MEDS: ALPRAZolam 0.25 MG TAB PO PRN (22:10)
[2020-05-22] MEDS: PROVENTIL INHALER 6.7 G (200 INHALATIONS) INH SCH ×4 (00:38→19:00)
[2020-05-22] MEDS: HumaLOG 300 UNITS/3 ML VIAL SC PRN ×4 (03:54→22:05)
[2020-05-22 04:21] LABS: Band 7 % (5-11); Hemoglobin 9.9 g/dL (12.0-16.0); Lymphocytes 1 % (21-51); MDiff Complete? YES; Mean Corpuscular HGB CONC 33.7 g/dL (32.0-36.0); Mean Corpuscular Hemoglobin 30.5 pg (27.0-31.0); Mean Corpuscular Volume 90.6 fL (78.0-98.0); Mean Platelet Volume 9.9 fL (7.4-10.4); Monocytes 4 % (0-10); Neutrophil 88 % (42-75); Platelet Count 141 thou/uL (130-400); RBC Distribution Width 13.9 % (11.5-14.5); Red Blood Cell (RBC) Count 3.25 mill/uL (4.20-5.40); White Blood Cell (WBC) Count 13.8 thou/uL (4.8-10.8)
[2020-05-22 04:23] LABS: Anion Gap 12 mmol/L (10-20); BUN (Urea Nitrogen) 23 mg/dL (9.8-20.1); Calc. Creatinine Clearance 106 mL/min (70-130); Calcium 7.7 mg/dL (7.8-10.44); Carbon Dioxide 27 mmol/L (23-31); Chloride 103 mmol/L (98-107); Estimated GFR-MDRD Greater than 90; Glucose 165 mg/dL (80-115); Potassium 4.3 mmol/L (3.5-5.1); Sodium 138 mmol/L (136-145)
[2020-05-22] MEDS: Propofol 1,000 MG/100 ML VIAL IV PRN ×3 (05:29→17:12)
[2020-05-22] MEDS: methylPREDNISolone Sod Succ 40 MG VIAL IVP SCH ×4 (05:30→23:42)
[2020-05-22] MEDS: Mometasone 200 MCG/Formoterol 5 MCG 120 PUFF INHALER INH SCH ×2 (08:00→19:00)
--- NOTE | 2020-05-22 08:07 | PDOC.HOSPP ---
- Subjective Encounter Date: 05/22/20 Encounter Time: 10:00 Subjective: Patient remains sedated on the vent. Not weanable at this time. - Objective Vital Signs & Weight: Vital Signs (12 hours) Temp Pulse Resp BP 05/22/20 07:50 62 136/81 05/22/20 06:00 22 H 05/22/20 04:00 98.6 F 18 05/22/20 02:51 59 L 143/78 H 05/22/20 02:00 17 05/22/20 00:39 59 L 05/22/20 00:00 98.6 F 18 05/21/20 22:00 35 H 05/21/20 21:12 60 162/74 H Weight Admit Weight 156 lb Weight 160 lb 0.889 oz Most Recent Monitor Data Heart Rate from ECG 68 NIBP 185/92 NIBP BP-Mean 123 Respiration from ECG 33 SpO2 94 I&O: 05/21/20 05/22/20 05/23/20 06:59 06:59 06:59 Intake Total 2343.3 2457.7 Output Total 2170 1550 Balance 173.3 907.7 Result Diagrams: 05/22/20 03:35 05/22/20 03:35 Additional Labs: Accuchecks 05/22/20 05/21/20 05/21/20 03:52 21:28 15:29 POC Glucose 166 H 189 H 190 H Hospitalist ROS - Review of Systems ROS unobtainable: due to endotracheal tube - Medication Medications: Active Medications Generic Name Dose Route Start Last Admin Trade Name Freq PRN Reason Stop Dose Admin Acetaminophen 650 mg 05/07/20 19:41 05/17/20 11:45 Acetaminophen 325 Mg Tab PO 650 mg Q4H PRN Administration Headache/Fever or Pain Albuterol Sulfate 2 puff 05/07/20 19:00 05/22/20 08:00 Proventil Inhaler 6.7 G (200 Inhalations) INH 2 puff [id number] [place] Administration Alprazolam 0.25 mg 05/18/20 16:51 05/21/20 22:10 Alprazolam 0.25 Mg Tab PO 0.25 mg BIDPRN PRN Administration Anxiety Amlodipine Besylate 10 mg 05/14/20 09:00 05/21/20 08:05 Amlodipine 10 Mg Tab PO 10 mg DAILY [place] Administration Aspirin 81 mg 05/09/20 09:00 05/21/20 08:06 Aspirin 81 Mg Enteric Coated Tablet PO 81 mg DAILY [place] Administration Atorvastatin Calcium 10 mg 05/08/20 21:00 05/21/20 21:12 Atorvastatin Calcium 10 Mg Tab PO 10 mg HS [place] Administration Bisacodyl 10 mg 05/19/20 09:55 05/19/20 11:46 Bisacodyl 10 Mg Supp [place] 10 mg DAILYPRN PRN Administration Constipation Carvedilol 6.25 mg 05/12/20 08:00 05/21/20 16:23 Carvedilol 6.25 Mg Tab PO 6.25 mg BID-WM [place] Administration Enoxaparin Sodium 70 mg 05/07/20 21:00 05/21/20 21:12 Enoxaparin Sodium 80 Mg/0.8 Ml Syringe SC 70 mg 0900,2100 [place] Administration Famotidine 20 mg 05/18/20 09:00 05/21/20 21:12 Famotidine 20 Mg Tab PER TUBE 20 mg BID [place] Administration Hydralazine HCl 25 mg 05/11/20 09:00 05/21/20 21:12 Hydralazine 25 Mg Tab PO 25 mg TID [place] Administration Fentanyl Citrate 2,000 mcg/ 100 mls @ 0 mls/hr 05/19/20 20:45 05/21/20 21:15 Sodium Chloride IV 100 mls INF [place] Administration Protocol Per Protocol Insulin Glargine 40 units/ 0.4 mls @ 0 mls/hr 05/20/20 21:00 05/21/20 21:12 Miscellaneous Medication SC 0.4 mls HS [place] Administration Insulin Glargine 50 units/ 0.5 mls @ 0 mls/hr 05/20/20 09:00 05/21/20 09:19 Miscellaneous Medication SC 0.5 mls QAM [place] Administration Dexmedetomidine HCl 400 mcg/ 100 mls @ 0 mls/hr 05/20/20 10:30 05/21/20 20:53 Sodium Chloride IVPB 100 mls INF [place] Administration Protocol Per Protocol Insulin Human Lispro 0 units 05/07/20 20:06 05/16/20 21:52 Humalog 300 Units/3 Ml Vial SC 4 unit .BEDTIME SLIDING SC PRN Administration Bedtime Correctional Scale Insulin Human Lispro 0 units 05/18/20 17:45 05/22/20 03:54 Humalog 300 Units/3 Ml Vial SC 3 unit .AGGRESSIVE SLIDING PRN Administration AGGRESSIVE SLIDING SCALE Protocol Labetalol HCl 10 mg 05/07/20 10:55 05/20/20 15:39 Labetalol Hcl 100 Mg/20 Ml Vial SLOW IVP 10 mg Q4H PRN Administration SBP Greater Than 180 Methylprednisolone Sodium Succinate 40 mg 05/07/20 18:00 05/22/20 05:30 Methylprednisolone Sod Succ 40 Mg Vial IVP 40 mg Q6HR [place] Administration Mometasone Furoate/Formoterol Fumar 2 puff 05/07/20 18:30 05/22/20 08:00 Mometasone 200 Mcg/Formoterol 5 Mcg 120 Puff Inhaler INH 2 puff BID-RT [place] Administration Polyethylene Glycol 17 gm 05/20/20 09:00 05/21/20 08:04 Polyethylene Glycol 3350 17 Gm Packet PER TUBE 17 gm DAILY [place] Administration Propofol 1,000 mg 05/09/20 07:30 05/22/20 05:29 Propofol 1,000 Mg/100 Ml Vial IV 06/08/20 07:30 1,000 mg INF PRN Administration TO ACHIEVE GOAL RASS Protocol Sodium Chloride 10 ml 05/08/20 21:00 05/21/20 21:13 Flush - Normal Saline 10 Ml Syringe IVF 10 ml Q12HR [place] Administration - Exam General - other findings: sedated on the vent ENT: moist mucosa Heart: RRR, no murmur, no gallops, no rubs Respiratory: no wheezes, no tachypnea Respiratory - other findings: coarse breath sounds bilaterally Gastrointestinal: soft, non-tender, non-distended, normal bowel sounds Psychiatric - other findings: sedated on the vent Hosp A/P - Plan This is a 64 years old pleasant female, who has significant past medical history of diabetes type 2, hypertension, who was diagnosed with Covid- 19 about a week ago presented to the ED with worsening dyspnea and hypoxia Acute hypoxic respiratory failure - secondary to COVID-19 --pt remains intubated Antibiotics discontinued. Continue corticosteroids. Status post remdesivir and convalescent plasma --Continue vent management per pulmonology. --Tracheostomy being considered, Dr. Hart to discuss with family as can't wean Hypernatremia and hyperchloremia- improved -- Increased water flushes. Constipation MiraLAX and Dulcolax suppositories initiated. Having BMs now. COVID-19 pneumonia --Management as above Diabetes type 2 Sugar levels better controlled on Lantus to 50 units in the morning and 40 units in the evening. Hypertensive urgency - BP improved --cont Ramipril, Coreg, and amlodipine. --prn Vasotec and Labetalol prn (shortage on hydralazine) Dyslipidemia --resumed statin Transient episode of SVT --resolved. d/t above. Added Coreg for rate control DVT ppx: Lovenox therapeutic GI ppx: Pepcid Code Status: Full code Anticipated Dispo: Overall poor prognosis, will need trach and prolonged post- hospital care
[2020-05-22] MEDS: Enoxaparin Sodium 80 MG/0.8 ML SYRINGE SC SCH ×2 (08:10→21:29)
[2020-05-22] MEDS: ALPRAZolam 0.25 MG TAB PO PRN ×2 (08:10→21:29)
[2020-05-22] MEDS: Polyethylene Glycol 3350 17 GM Packet PER TUBE SCH (08:10)
[2020-05-22] MEDS: hydrALAZINE 25 MG TAB PO SCH ×3 (08:11→21:29)
[2020-05-22] MEDS: Aspirin 81 mg Enteric Coated Tablet PO SCH (08:11)
[2020-05-22] MEDS: Famotidine 20 MG TAB PER TUBE SCH ×2 (08:11→21:29)
[2020-05-22] MEDS: Carvedilol 6.25 MG TAB PO SCH ×2 (08:11→17:11)
[2020-05-22] MEDS: Amlodipine 10 MG TAB PO SCH (08:11)
[2020-05-22] MEDS: Insulin Glargine 50 UNITS in Pre-Filled Syringe 1 EACH SC SCH (09:00)
[2020-05-22] MEDS: risperiDONE 1 MG TAB PO SCH ×2 (09:05→21:29)
--- NOTE | 2020-05-22 09:26 | RAD ---
Exam: Chest one view HISTORY:Respiratory distress. Ventilated patient. Endotracheal tube repositioning. Comparison: 05/21/2020 FINDINGS: Lines and tubes: Redemonstration of endotracheal tube extending just beyond the clavicles. Nasogastri c tube extends beyond the diaphragm. Distal tip is not seen. Cardiac silhouette: Normal Aorta: Unremarkable Pulmonary vessels: Normal Costophrenic angles: Clear LUNGS: Stable multifocal interstitial and alveolar opacities. Pneumothorax: There is subcutaneous emphysema, and pneumomediastinum. No definite pneumothorax. Osseous abnormalities: None IMPRESSION: 1. Stable opacification of the lung parenchyma 2. Redemonstration of a left-sided pneumothorax, pneumomediastinum and subcutaneous emphysema Results study discussed with patient's nurse Mike 05/22/2020 at 9:21 AM Code CR
--- NOTE | 2020-05-22 09:30 | PRG ---
DATE OF SERVICE: 05/22/2020 SUBJECTIVE: Bhakti Watts remains intubated in the vent, in the ICU, intubated. She is on maximum sedation including Precedex, Diprivan, and fentanyl. In spite of that, she is agitated and breathing rapidly on the vent with the sats of 92%, blood pressure 200/71, pulse 67, and respirations 31. I's and O's even. OBJECTIVE: CHEST: Bilateral rhonchi and crackles. CARDIAC: Normal S1, S2. No gallops. ABDOMEN: No masses. DIAGNOSTIC STUDIES: X-ray shows diffuse pulmonary infiltrates. ASSESSMENT: Respiratory failure, farooq positive pneumonia, acute respiratory distress syndrome, metabolic encephalopathy, and hypertension. PLAN: She is not weanable at this stage, day #13 on the vent. I am going to try and discuss with the family the indication for trach and PEG versus comfort care. Long-term prognosis is grave. One-half hour of critical care time. Job ID: [id number]
[2020-05-22] MEDS: fentaNYL Citrate/PF 2,000 MCG in Sodium Chloride 0.9% 60 ML IV SCH (17:11)
[2020-05-22] MEDS: Atorvastatin Calcium 10 MG TAB PO SCH (21:29)
[2020-05-22] MEDS: Insulin Glargine 40 UNITS in Pre-Filled Syringe 1 EACH SC SCH (21:29)
[2020-05-23] MEDS: PROVENTIL INHALER 6.7 G (200 INHALATIONS) INH SCH ×4 (00:20→18:56)
[2020-05-23] MEDS: Propofol 1,000 MG/100 ML VIAL IV PRN ×6 (01:22→23:43)
[2020-05-23] MEDS: HumaLOG 300 UNITS/3 ML VIAL SC PRN ×2 (04:11→08:55)
[2020-05-23 04:38] LABS: Anion Gap 12 mmol/L (10-20); BUN (Urea Nitrogen) 22 mg/dL (9.8-20.1); Calc. Creatinine Clearance 111 mL/min (70-130); Calcium 7.6 mg/dL (7.8-10.44); Carbon Dioxide 27 mmol/L (23-31); Chloride 105 mmol/L (98-107); Estimated GFR-MDRD Greater than 90; Glucose 203 mg/dL (80-115); Potassium 4.4 mmol/L (3.5-5.1); Sodium 140 mmol/L (136-145)
[2020-05-23] MEDS: methylPREDNISolone Sod Succ 40 MG VIAL IVP SCH ×4 (05:21→23:42)
[2020-05-23 05:23] LABS: Band 17 % (5-11); Eosinophils 1 % (0-10); Hemoglobin 9.4 g/dL (12.0-16.0); Lymphocytes 1 % (21-51); MDiff Complete? YES; Mean Corpuscular HGB CONC 32.5 g/dL (32.0-36.0); Mean Corpuscular Hemoglobin 29.6 pg (27.0-31.0); Mean Platelet Volume 9.5 fL (7.4-10.4); Monocytes 1 % (0-10); Neutrophil 80 % (42-75); Platelet Count 128 thou/uL (130-400); RBC Distribution Width 14.2 % (11.5-14.5); Red Blood Cell (RBC) Count 3.17 mill/uL (4.20-5.40); White Blood Cell (WBC) Count 11.6 thou/uL (4.8-10.8)
--- NOTE | 2020-05-23 07:38 | RAD ---
EXAM: XR Chest 1 View Portable PROVIDED CLINICAL HISTORY: Respiratory insufficiency COMPARISON: 05/22/2020 FINDINGS: Cardiac and mediastinal silhouette is unchanged in appearance. Support apparatus is in similar positi on. New small left apical pneumothorax. Worsened pneumomediastinum. Extensive bilateral interstitial and airspace disease is similar to prior. No pleural fluid is evident. IMPRESSION: Persistent extensive bilateral interstitial and airspace disease with worsened pneumomediastinum and development of small left pneumothorax. Findings communicated to the nurse caring for the patient 7:34 AM 05/23/2020.
[2020-05-23] MEDS: Mometasone 200 MCG/Formoterol 5 MCG 120 PUFF INHALER INH SCH ×2 (07:49→18:56)
--- NOTE | 2020-05-23 07:52 | RAD ---
EXAM: XR Chest 1 View Portable PROVIDED CLINICAL HISTORY: Respiratory insufficiency COMPARISON: 05/21/2020 5:14 AM FINDINGS: Examination performed 05/22/2020 5:12 AM, submitted for interpretation 05/23/2020. Interval removal o f endotracheal tube and enteric catheter. Extensive bilateral airspace disease persists, with worsening involving both mid and upper lung zones. There is no pleural fluid or pneumothorax apparent . IMPRESSION: Worsening of bilateral airspace disease since 05/21/2020.
--- NOTE | 2020-05-23 08:13 | PDOC.HOSPP ---
- Subjective Encounter Date: 05/23/20 Encounter Time: 10:00 Subjective: Patient without changes overnight. Small pneumothorax seen on CXR this AM. - Objective Vital Signs & Weight: Vital Signs (12 hours) Temp Pulse Resp BP Pulse Ox 05/23/20 07:50 62 171/78 H 05/23/20 06:00 14 05/23/20 04:00 98.6 F 13 05/23/20 02:42 69 05/23/20 02:00 15 05/23/20 00:20 56 L 147/57 H 05/23/20 00:00 98.6 F 17 05/22/20 22:00 15 05/22/20 21:29 61 05/22/20 20:30 96 Weight Admit Weight 156 lb Weight 158 lb 15.253 oz Most Recent Monitor Data Heart Rate from ECG 60 NIBP 166/67 NIBP BP-Mean 100 Respiration from ECG 18 SpO2 97 I&O: 05/22/20 05/23/20 05/24/20 06:59 06:59 06:59 Intake Total 2457.7 1840.1 Output Total 1550 2675 Balance 907.7 -834.9 Result Diagrams: 05/23/20 03:55 05/23/20 03:55 Additional Labs: Accuchecks 05/23/20 05/22/20 05/22/20 04:02 15:22 10:21 POC Glucose 186 H 225 H 201 H 05/21/20 11:17 POC Glucose 213 H Radiology Reviewed by me: Yes (small left pneumothorax) Hospitalist ROS - Review of Systems ROS unobtainable: due to endotracheal tube - Medication Medications: Active Medications Generic Name Dose Route Start Last Admin Trade Name Freq PRN Reason Stop Dose Admin Acetaminophen 650 mg 05/07/20 19:41 05/17/20 11:45 Acetaminophen 325 Mg Tab PO 650 mg Q4H PRN Administration Headache/Fever or Pain Albuterol Sulfate 2 puff 05/07/20 19:00 05/23/20 07:49 Proventil Inhaler 6.7 G (200 Inhalations) INH 2 puff [id number] [place] Administration Alprazolam 0.25 mg 05/18/20 16:51 05/22/20 21:29 Alprazolam 0.25 Mg Tab PO 0.25 mg BIDPRN PRN Administration Anxiety Amlodipine Besylate 10 mg 05/14/20 09:00 05/22/20 08:11 Amlodipine 10 Mg Tab PO 10 mg DAILY [place] Administration Aspirin 81 mg 05/09/20 09:00 05/22/20 08:11 Aspirin 81 Mg Enteric Coated Tablet PO 81 mg DAILY [place] Administration Atorvastatin Calcium 10 mg 05/08/20 21:00 05/22/20 21:29 Atorvastatin Calcium 10 Mg Tab PO 10 mg HS [place] Administration Bisacodyl 10 mg 05/19/20 09:55 05/19/20 11:46 Bisacodyl 10 Mg Supp [place] 10 mg DAILYPRN PRN Administration Constipation Carvedilol 6.25 mg 05/12/20 08:00 05/22/20 17:11 Carvedilol 6.25 Mg Tab PO 6.25 mg BID-WM [place] Administration Enoxaparin Sodium 70 mg 05/07/20 21:00 05/22/20 21:29 Enoxaparin Sodium 80 Mg/0.8 Ml Syringe SC 70 mg 0900,2100 [place] Administration Famotidine 20 mg 05/18/20 09:00 05/22/20 21:29 Famotidine 20 Mg Tab PER TUBE 20 mg BID [place] Administration Hydralazine HCl 25 mg 05/11/20 09:00 05/22/20 21:29 Hydralazine 25 Mg Tab PO 25 mg TID [place] Administration Fentanyl Citrate 2,000 mcg/ 100 mls @ 0 mls/hr 05/19/20 20:45 05/22/20 17:11 Sodium Chloride IV 100 mls INF [place] Administration Protocol Per Protocol Insulin Glargine 40 units/ 0.4 mls @ 0 mls/hr 05/20/20 21:00 05/22/20 21:29 Miscellaneous Medication SC 0.4 mls HS [place] Administration Insulin Glargine 50 units/ 0.5 mls @ 0 mls/hr 05/20/20 09:00 05/22/20 09:00 Miscellaneous Medication SC 0.5 mls QAM [place] Administration Dexmedetomidine HCl 400 mcg/ 100 mls @ 0 mls/hr 05/20/20 10:30 05/22/20 13:49 Sodium Chloride IVPB 100 mls INF [place] Administration Protocol Per Protocol Insulin Human Lispro 0 units 05/07/20 20:06 05/16/20 21:52 Humalog 300 Units/3 Ml Vial SC 4 unit .BEDTIME SLIDING SC PRN Administration Bedtime Correctional Scale Insulin Human Lispro 0 units 05/18/20 17:45 05/23/20 04:11 Humalog 300 Units/3 Ml Vial SC 3 unit .AGGRESSIVE SLIDING PRN Administration AGGRESSIVE SLIDING SCALE Protocol Labetalol HCl 10 mg 05/07/20 10:55 05/20/20 15:39 Labetalol Hcl 100 Mg/20 Ml Vial SLOW IVP 10 mg Q4H PRN Administration SBP Greater Than 180 Methylprednisolone Sodium Succinate 40 mg 05/07/20 18:00 05/23/20 05:21 Methylprednisolone Sod Succ 40 Mg Vial IVP 40 mg Q6HR [place] Administration Mometasone Furoate/Formoterol Fumar 2 puff 05/07/20 18:30 05/23/20 07:49 Mometasone 200 Mcg/Formoterol 5 Mcg 120 Puff Inhaler INH 2 puff BID-RT [place] Administration Polyethylene Glycol 17 gm 05/20/20 09:00 05/22/20 08:10 Polyethylene Glycol 3350 17 Gm Packet PER TUBE 17 gm DAILY [place] Administration Propofol 1,000 mg 05/09/20 07:30 05/23/20 05:21 Propofol 1,000 Mg/100 Ml Vial IV 06/08/20 07:30 1,000 mg INF PRN Administration TO ACHIEVE GOAL RASS Protocol Risperidone 1 mg 05/22/20 09:00 05/22/20 21:29 Risperidone 1 Mg Tab PO 1 mg BID [place] Administration Sodium Chloride 10 ml 05/08/20 21:00 05/22/20 21:30 Flush - Normal Saline 10 Ml Syringe IVF 10 ml Q12HR [place] Administration - Exam General - other findings: sedated on vent ENT: moist mucosa Heart: RRR, no murmur, no gallops, no rubs Respiratory: CTAB, no wheezes, no rales, no ronchi Gastrointestinal: soft, non-tender, non-distended, normal bowel sounds Psychiatric - other findings: sedated on the vent Hosp A/P - Plan This is a 64 years old pleasant female, who has significant past medical history of diabetes type 2, hypertension, who was diagnosed with Covid- 19 about a week ago presented to the ED with worsening dyspnea and hypoxia Acute hypoxic respiratory failure - secondary to COVID-19 --pt remains intubated Antibiotics discontinued. Continue corticosteroids. Status post remdesivir and convalescent plasma --Continue vent management per pulmonology. --Tracheostomy being considered, Dr. Hart to discuss with family as can't wean Pneumothorax --Dr. Vazquez consulted for chest tube placement Hypernatremia and hyperchloremia- improved -- Increased water flushes. Constipation MiraLAX and Dulcolax suppositories initiated. Having BMs now. COVID-19 pneumonia --Management as above Diabetes type 2 --Sugar levels better controlled on Lantus to 50 units in the morning and 40 units in the evening. Hypertensive urgency - BP improved --cont Ramipril, Coreg, and amlodipine. --prn Vasotec and Labetalol prn (shortage on hydralazine) Dyslipidemia --resumed statin Transient episode of SVT --resolved. d/t above. Added Coreg for rate control DVT ppx: Lovenox therapeutic GI ppx: Pepcid Code Status: Full code Anticipated Dispo: Overall poor prognosis, will need trach and prolonged post-hospital care
[2020-05-23] MEDS: Aspirin 81 mg Enteric Coated Tablet PO SCH (08:19)
[2020-05-23] MEDS: Famotidine 20 MG TAB PER TUBE SCH ×2 (08:19→19:28)
[2020-05-23] MEDS: Carvedilol 6.25 MG TAB PO SCH ×2 (08:20→16:05)
[2020-05-23] MEDS: Amlodipine 10 MG TAB PO SCH (08:20)
[2020-05-23] MEDS: Polyethylene Glycol 3350 17 GM Packet PER TUBE SCH (08:21)
[2020-05-23] MEDS: risperiDONE 1 MG TAB PO SCH ×2 (08:21→19:27)
[2020-05-23] MEDS: hydrALAZINE 25 MG TAB PO SCH ×3 (08:21→19:27)
[2020-05-23] MEDS: Enoxaparin Sodium 80 MG/0.8 ML SYRINGE SC SCH ×2 (08:22→19:28)
[2020-05-23] MEDS: Labetalol HCl 100 MG/20 ML VIAL SLOW IVP PRN (08:23)
[2020-05-23] MEDS: Insulin Glargine 50 UNITS in Pre-Filled Syringe 1 EACH SC SCH (08:56)
--- NOTE | 2020-05-23 09:24 | PRG ---
DATE OF SERVICE: 05/23/2020 SUBJECTIVE: A 64-year-old female, remains intubated in the vent. OBJECTIVE: VITAL SIGNS: Pulse 62, blood pressure 190/73, pulse respiratory rate 18. CHEST: No wheezing. No crackles. CARDIAC: Normal S1, S2. No gallops. ABDOMEN: Soft. LABORATORY DATA: White count 11,000, H and H 9 and 28, platelet count . Lytes are normal. X-ray shows a new left-sided pneumothorax, diffuse infiltrates. IMPRESSION: 1. Kimball positive pneumonia, day #16. 2. Spontaneous pneumothorax. PLAN: At this stage, the patient is not weanable. I spoke to son at length yesterday, power of assistant prosecuting attorney, he wants everything to be done for his mom including a trach and a PEG. Plan is to continue high-dose steroids, Lovenox, probably plan for trach and PEG following a repeat coronavirus swab test. One-half hour of critical care time. Job ID: [id number]
[2020-05-23] MEDS ORDERED: Lisinopril 20 MG TAB PO SCH (10:00)
[2020-05-23] MEDS: Lisinopril 20 MG TAB PO SCH (10:04)
[2020-05-23] MEDS: fentaNYL Citrate/PF 2,000 MCG in Sodium Chloride 0.9% 60 ML IV SCH (11:04)
[2020-05-23] MEDS ORDERED: Lidocaine 1% w/Epinephrine 1:100K 20 ML VIAL ONE (15:48)
[2020-05-23] MEDS: Insulin Glargine 40 UNITS in Pre-Filled Syringe 1 EACH SC SCH (19:28)
[2020-05-23] MEDS: Atorvastatin Calcium 10 MG TAB PO SCH (19:30)
[2020-05-24] MEDS: PROVENTIL INHALER 6.7 G (200 INHALATIONS) INH SCH ×4 (01:52→18:18)
[2020-05-24] MEDS: Acetaminophen 325 MG TAB PO PRN (03:46)
[2020-05-24] MEDS: Propofol 1,000 MG/100 ML VIAL IV PRN ×5 (03:47→20:28)
[2020-05-24] MEDS: fentaNYL Citrate/PF 2,000 MCG in Sodium Chloride 0.9% 60 ML IV SCH ×2 (04:44→23:41)
[2020-05-24 05:13] LABS: Band 31 % (5-11); Eosinophils 3 % (0-10); Hemoglobin 9.9 g/dL (12.0-16.0); Lymphocytes 1 % (21-51); MDiff Complete? YES; Mean Corpuscular HGB CONC 33.5 g/dL (32.0-36.0); Mean Corpuscular Hemoglobin 30.7 pg (27.0-31.0); Mean Corpuscular Volume 91.6 fL (78.0-98.0); Mean Platelet Volume 9.4 fL (7.4-10.4); Monocytes 1 % (0-10); Myelocyte 2 % (0-0); Neutrophil 62 % (42-75); Platelet Count 155 thou/uL (130-400); RBC Distribution Width 14.8 % (11.5-14.5); Red Blood Cell (RBC) Count 3.21 mill/uL (4.20-5.40); Tear Drops SLIGHT = 2-5 cells (100X) (0-1/hpf); White Blood Cell (WBC) Count 15.3 thou/uL (4.8-10.8)
[2020-05-24 05:15] LABS: Anion Gap 13 mmol/L (10-20); BUN (Urea Nitrogen) 22 mg/dL (9.8-20.1); Calc. Creatinine Clearance 115 mL/min (70-130); Calcium 7.8 mg/dL (7.8-10.44); Carbon Dioxide 26 mmol/L (23-31); Chloride 106 mmol/L (98-107); Estimated GFR-MDRD Greater than 90; Glucose 62 mg/dL (80-115); Sodium 141 mmol/L (136-145)
[2020-05-24] MEDS: methylPREDNISolone Sod Succ 40 MG VIAL IVP SCH ×3 (06:16→18:46)
--- NOTE | 2020-05-24 06:42 | PRG ---
DATE OF SERVICE: 05/24/2020 The patient had an uneventful night, stable on the ventilator. Her chest x-ray this morning shows no pneumothorax, but her subcutaneous air may be slightly increased compared to yesterday morning. According to the nurse, there has been no air leak, and the output has been about 200 cc overnight. Job ID: [id number]
[2020-05-24] MEDS: Mometasone 200 MCG/Formoterol 5 MCG 120 PUFF INHALER INH SCH ×2 (07:41→18:18)
--- NOTE | 2020-05-24 08:07 | RAD ---
Portable frontal chest radiograph: 05/24/2020 COMPARISON: 05/23/2020 HISTORY: Ventilated patient FINDINGS: Stable endotracheal tube and nasogastric tube. There is a left-sided chest tube in place. T here is extensive subcutaneous gas in the bilateral axillary regions and supraclavicular regions extending into the neck, slightly less conspicuous when compared to the prior exam. There is stable p neumomediastinum. There is a probable small left basilar pneumothorax. Persistent diffuse interstitial opacity with superimposed areas of airspace disease in the perihilar regions and right b ase. IMPRESSION: Lines and tubes as detailed above. Subcutaneous emphysema, pneumomediastinum, and probabl e small left basilar pneumothorax.
[2020-05-24 08:12] LABS: Actual Bicarbonate (HCO3a) 29.3 mEq/L (22-28); Base Excess (BEa) 4.2 mEq/L (-2.0 to +3.0); CO2 Tension 46.5 mmHg (35.0-45.0); Calcium, Ionized (arterial) 1.05 mmol/L (1.12-1.30); Carboxyhemoglobin (COHb) 0.2 gm% (0.0-3.0); Hemoglobin (Hb) 9.5 g/dL (12.0-16.0); O2 Tension (PaO2), arterial 66.9 mmHg (> 80.0); Potassium - ABG Lab 4.06 mmol/L (3.70-5.30); pH, Arterial 7.42 (7.35-7.45)
[2020-05-24 08:14] LABS: Puncture Site LR
[2020-05-24] MEDS: Enoxaparin Sodium 80 MG/0.8 ML SYRINGE SC SCH ×2 (08:14→20:28)
[2020-05-24] MEDS: Carvedilol 6.25 MG TAB PO SCH ×2 (08:14→16:29)
[2020-05-24 08:15] LABS: ALV-art Gradient 160.175 mmHg (0-20)
[2020-05-24] MEDS: Famotidine 20 MG TAB PER TUBE SCH ×2 (08:15→20:28)
[2020-05-24] MEDS: Amlodipine 10 MG TAB PO SCH (08:15)
[2020-05-24] MEDS: Aspirin 81 mg Enteric Coated Tablet PO SCH (08:16)
[2020-05-24] MEDS: Lisinopril 20 MG TAB PO SCH (08:16)
[2020-05-24] MEDS: hydrALAZINE 25 MG TAB PO SCH ×3 (08:16→20:29)
[2020-05-24] MEDS: risperiDONE 1 MG TAB PO SCH ×2 (08:17→20:28)
[2020-05-24] MEDS: Insulin Glargine 50 UNITS in Pre-Filled Syringe 1 EACH SC SCH (09:00)
--- NOTE | 2020-05-24 09:21 | PRG ---
DATE OF SERVICE: 05/24/2020 SUBJECTIVE: Bhakti Watts underwent a chest tube insertion for a pneumothorax on the vent. X-ray looks better. She has pneumomediastinum, but no pneumothorax. OBJECTIVE: VITAL SIGNS: Pulse 62, blood pressure 140/82, saturations CHEST: Bilateral rhonchi, crackles. CARDIAC: Normal S1, S2. No gallops. ABDOMEN: No masses. . She is afebrile. White count is normal. Lytes are normal. IMPRESSION AND PLAN: Kimball positive pneumonia, acute respiratory distress syndrome, severe deconditioning. At this stage, try to minimize sedation. Continue blood pressure. Continue nutrition. Hopefully, we are going to see we can try and wean slowly. She is going to need more than likely a trach and a PEG. TIME SPENT: One-half hour of critical care time. Job ID: [id number]
[2020-05-24] MEDS: Polyethylene Glycol 3350 17 GM Packet PER TUBE SCH (12:17)
--- NOTE | 2020-05-24 13:06 | OP ---
DATE OF PROCEDURE: 05/24/2020 This is a 64-year-old female with a diagnosis of [place] virus on the ventilator with the diagnosis probably spanning the past 3 weeks. She has been hospitalized the past two weeks. She was noted to have a small pneumothorax on her x-ray this morning as well as a new development of pneumothorax, and I have been asked to place a chest tube. After prepping and draping the inframammary area of the anterior axillary line, lidocaine with epinephrine was used to infiltrate the skin and subcutaneous tissues as well as the intercostal space. Chest tube was then passed into the chest cavity, and a finger inserted, and cardiac pulsations could be felt immediately adjacent to the entry site. A #28 chest tube was then aimed laterally and posteriorly and advanced until slight resistance was obtained. A suture was then used to reapproximate the skin edges of the hole and secure the tube. There was no significant leak at the conclusion of the procedure, and the patient tolerated the procedure well. Job ID: [id number]
[2020-05-24] MEDS: ALPRAZolam 0.25 MG TAB PO PRN (14:38)
--- NOTE | 2020-05-24 18:03 | PDOC.PALPN ---
Palliative Progress Note - Subjective Intubated with mechanical ventilation, nutrition via OG, recent pheumothorax, chest tube placed by Dr Vazquez. Sedation. - Objective Vital Signs: Vital Signs - Most Recent Temp Pulse Resp BP Pulse Ox 98.5 F 74 30 H 182/64 H 97 05/24/20 16:00 05/24/20 15:21 05/24/20 16:00 05/24/20 16:29 05/24/20 07:48 - Physical Exam Constitutional: encephalitic, ill appearing HEENT: moist MMs Deviation from normal: bilaterally adventicious Cardiovascular: RRR Gastrointestinal: soft, non-tender, incontinent Genitourinary: tapia catheter Musculoskeletal: diffuse muscle atrophy Deviation from normal: sedated Skin: cap refill <2 seconds Deviation from normal: sedated, encephalopathic - Assessment (1) COVID-19 Code(s): U07.1 - COVID-19 Current Visit: Yes Status: Acute (2) Respiratory failure requiring intubation Code(s): J96.90 - RESPIRATORY FAILURE, UNSP, UNSP W HYPOXIA OR HYPERCAPNIA Current Visit: Yes Status: Acute (3) Diabetes type 2, controlled Code(s): E11.9 - TYPE 2 DIABETES MELLITUS WITHOUT COMPLICATIONS Current Visit: Yes Status: Acute (4) Palliative care encounter Code(s): Z51.5 - ENCOUNTER FOR PALLIATIVE CARE Current Visit: Yes Status: Acute - Plan Plan: Palliative Care has been introduced to patient family via son. Patient spouse at our facility in March of 2020. Hopeful for family to be able to visit after isolation precautions lifted for Covid. Family hopeful for continued recovery and desires aggressive measures. Will further discuss Trach/Peg at guidance of Hospitalist and Administrative Technician. Spiritual care consult placed. [50] minutes spent on this encounter with >50% of the time in counseling and coordination of care. - ROS Non Response: due to endotracheal tube, due to mental status
[2020-05-24] MEDS: Insulin Glargine 40 UNITS in Pre-Filled Syringe 1 EACH SC SCH (20:29)
[2020-05-24 20:30] LABS: SARS-CoV-2 MS2 Positive
[2020-05-24 20:31] LABS: SARS-CoV-2 N Gene Positive; SARS-CoV-2 S Gene Positive; SARS-CoV-2 orf1ab Positive
[2020-05-24] MEDS: Atorvastatin Calcium 10 MG TAB PO SCH (20:33)
[2020-05-24 20:38] LABS: SARS-CoV-2 by NAA DETECTED (NotDetected)
[2020-05-25] MEDS: ALPRAZolam 0.25 MG TAB PO PRN ×3 (00:12→19:28)
[2020-05-25] MEDS: Propofol 1,000 MG/100 ML VIAL IV PRN ×6 (00:12→19:25)
[2020-05-25] MEDS: methylPREDNISolone Sod Succ 40 MG VIAL IVP SCH ×3 (00:12→19:24)
[2020-05-25] MEDS: PROVENTIL INHALER 6.7 G (200 INHALATIONS) INH SCH ×4 (00:23→18:31)
[2020-05-25] MEDS: HumaLOG 300 UNITS/3 ML VIAL SC PRN ×2 (04:50→12:43)
[2020-05-25 06:50] LABS: Chloride 106 mmol/L (98-107); Potassium 4.3 mmol/L (3.5-5.1); Sodium 141 mmol/L (136-145)
[2020-05-25 06:51] LABS: Calcium 7.8 mg/dL (7.8-10.44); Glucose 210 mg/dL (80-115)
[2020-05-25 06:53] LABS: Anion Gap 9 mmol/L (10-20); Carbon Dioxide 30 mmol/L (23-31)
[2020-05-25 06:55] LABS: BUN (Urea Nitrogen) 16 mg/dL (9.8-20.1); Calc. Creatinine Clearance 0 mL/min (70-130); Estimated GFR-MDRD Greater than 90
[2020-05-25] MEDS: Mometasone 200 MCG/Formoterol 5 MCG 120 PUFF INHALER INH SCH ×2 (07:34→18:31)
[2020-05-25 07:40] LABS: Band 8 % (5-11); Elliptocytes SLIGHT = 2-5 cells (100X) (0-1/hpf); Hemoglobin 9.6 g/dL (12.0-16.0); Lymphocytes 1 % (21-51); MDiff Complete? YES; Mean Corpuscular HGB CONC 32.8 g/dL (32.0-36.0); Mean Corpuscular Hemoglobin 30.6 pg (27.0-31.0); Mean Corpuscular Volume 93.1 fL (78.0-98.0); Mean Platelet Volume 9.2 fL (7.4-10.4); Monocytes 3 % (0-10); Neutrophil 88 % (42-75); Platelet Count 144 thou/uL (130-400); Platelet Morphology Comment Appears Adequate; Polychromasia SLIGHT = 2-3 cells (100X) (0-2/hpf); RBC Distribution Width 15.3 % (11.5-14.5); Red Blood Cell (RBC) Count 3.15 mill/uL (4.20-5.40); Tear Drops SLIGHT = 2-5 cells (100X) (0-1/hpf); White Blood Cell (WBC) Count 12.3 thou/uL (4.8-10.8)
--- NOTE | 2020-05-25 08:03 | RAD ---
1 VIEW CHEST: Date: 05/25/2020 HISTORY: On ventilator. Follow-up evaluation. COMPARISON: 05/24/2020. FINDINGS: Endotracheal tube, nasogastric tube, and left-sided thoracostomy tube remain in place. Again noted is extensive subcutaneous emphysema about the chest bilaterally and extending into the neck. Pneumomedi astinum is again present. The small left basilar pneumothorax on prior exam is less conspicuous than on the current study. An obvious pneumothorax on the left is not visualized. Tiny apical pneumothorax may be difficult to exclude given the amount of subcutaneous emphysema and overlying structures. Aga in noted are diffuse increased interstitial and alveolar opacities throughout the lungs bilaterally, not significantly changed when compared to the prior study. Elevation right hemidiaphragm is again pr esent. Metallic density overlying the mid portion of the mediastinum is again seen. IMPRESSION: Chest is overall stable when compared to prior exam. However, the pneumothorax seen at the left lung base on the prior study is less conspicuous and left-sided thoracostomy tube does remain in place. POS: OFF
--- NOTE | 2020-05-25 08:58 | PRG ---
DATE OF SERVICE: 05/25/2020 SUBJECTIVE: Bhakti Watts remains intubated in the vent, sedated. OBJECTIVE: VITAL SIGNS: Temperature 98, respirations 18, pulse 69, blood pressure , respiratory rate 18, saturations . CHEST: Bilateral rhonchi and crackles. CARDIAC: Normal S1, S2. No gallops. ABDOMEN: No masses. NEUROLOGIC: Sedated. LABORATORY DATA: White count 12,000, H and H of 9 and 29, platelet count 144. Lytes are normal. Repeat coronavirus test was positive. She is day #18 in the hospital. IMPRESSION: 1. Respiratory failure. 2. Acute respiratory distress syndrome. 3. Kimball positive pneumonia. 4. Left spontaneous pneumothorax. 5. Metabolic encephalopathy. PLAN: We will plan for trach and PEG on Friday. It will be 3 weeks, she should hopefully not be that contagious at that time. Meantime, we will continue nutrition, PT, supportive care. Otherwise, continue present supportive care. Prognosis is guarded. Job ID: [id number]
[2020-05-25] MEDS: Aspirin 81 mg Enteric Coated Tablet PO SCH (10:00)
[2020-05-25] MEDS: risperiDONE 1 MG TAB PO SCH ×2 (10:00→19:25)
[2020-05-25] MEDS: Insulin Glargine 50 UNITS in Pre-Filled Syringe 1 EACH SC SCH (10:00)
[2020-05-25] MEDS: Lisinopril 20 MG TAB PO SCH (10:01)
[2020-05-25] MEDS: Polyethylene Glycol 3350 17 GM Packet PER TUBE SCH ×2 (10:01→12:44)
[2020-05-25] MEDS: Amlodipine 10 MG TAB PO SCH (10:01)
[2020-05-25] MEDS: Famotidine 20 MG TAB PER TUBE SCH ×2 (10:01→21:10)
[2020-05-25] MEDS: hydrALAZINE 25 MG TAB PO SCH ×3 (10:02→19:26)
[2020-05-25] MEDS: Enoxaparin Sodium 80 MG/0.8 ML SYRINGE SC SCH ×2 (10:02→19:26)
[2020-05-25] MEDS: Carvedilol 6.25 MG TAB PO SCH (10:41)
[2020-05-25] MEDS: fentaNYL Citrate/PF 2,000 MCG in Sodium Chloride 0.9% 60 ML IV SCH (12:45)
[2020-05-25] MEDS: Labetalol HCl 100 MG/20 ML VIAL SLOW IVP PRN (13:10)
[2020-05-25] MEDS: Carvedilol 25 MG TAB PO SCH (18:12)
[2020-05-25] MEDS: Insulin Glargine 40 UNITS in Pre-Filled Syringe 1 EACH SC SCH (19:23)
[2020-05-25] MEDS: Atorvastatin Calcium 10 MG TAB PO SCH (19:26)
--- NOTE | 2020-05-25 20:22 | PDOC.HOSPP ---
- Subjective Encounter Date: 05/25/20 Encounter Time: 20:15 Subjective: f/u for COVID PNA/Resp failure/L-pneumothorax s/p chest tube and stabilization. Planning for potential trach/PEG early next week due to inability to wean and [facility]. - Objective Vital Signs & Weight: Vital Signs (12 hours) Temp Pulse Resp BP 05/25/20 20:00 98.9 F 12 05/25/20 19:26 71 121/53 L 05/25/20 18:22 75 161/63 H 05/25/20 18:00 19 05/25/20 16:00 99.1 F 16 05/25/20 15:55 80 175/56 H 05/25/20 14:31 75 176/54 H 05/25/20 14:00 24 H 05/25/20 13:10 73 196/56 H 05/25/20 12:00 99.1 F 19 05/25/20 10:41 210/65 H 05/25/20 10:25 71 210/85 H 05/25/20 10:02 69 210/65 H 05/25/20 10:01 70 189/65 H 05/25/20 10:00 24 H Weight Admit Weight 156 lb Weight 2.533 oz Most Recent Monitor Data Heart Rate from ECG 70 NIBP 99/46 NIBP BP-Mean 63 Respiration from ECG 11 SpO2 91 I&O: 05/24/20 05/25/20 05/26/20 06:59 06:59 06:59 Intake Total 1877 2180.5 1497.3 Output Total 2230 3570 910 Balance -353 -1389.5 587.3 Result Diagrams: 05/25/20 06:10 05/25/20 06:10 Additional Labs: Accuchecks 05/25/20 04:02 POC Glucose 191 H Microbiology 05/07/20 08:17 Venous blood - Right Hand Blood Culture - Final NO GROWTH IN 5 DAYS 05/07/20 08:01 Venous blood - Left Arm Blood Culture - Final NO GROWTH IN 5 DAYS Laboratory Tests 05/24/20 13:31 SARS-CoV-2 (PCR) DETECTED A* Radiology Reviewed by me: Yes (PCXR - decrease L-ptx, chest tube in place, diffuse infiltrates unchanged) EKG Reviewed by me: Yes (Tele - SR) Hospitalist ROS - Medication Medications: Active Medications Generic Name Dose Route Start Last Admin Trade Name Freq PRN Reason Stop Dose Admin Acetaminophen 650 mg 05/07/20 19:41 05/24/20 03:46 Acetaminophen 325 Mg Tab PO 650 mg Q4H PRN Administration Headache/Fever or Pain Albuterol Sulfate 2 puff 05/07/20 19:00 05/25/20 18:31 Proventil Inhaler 6.7 G (200 Inhalations) INH 2 puff [id number] [place] Administration Alprazolam 0.25 mg 05/18/20 16:51 05/25/20 19:28 Alprazolam 0.25 Mg Tab PO 0.25 mg BIDPRN PRN Administration Anxiety Amlodipine Besylate 10 mg 05/14/20 09:00 05/25/20 10:01 Amlodipine 10 Mg Tab PO 10 mg DAILY [place] Administration Aspirin 81 mg 05/09/20 09:00 05/25/20 10:00 Aspirin 81 Mg Enteric Coated Tablet PO 81 mg DAILY [place] Administration Atorvastatin Calcium 10 mg 05/08/20 21:00 05/25/20 19:26 Atorvastatin Calcium 10 Mg Tab PO 10 mg HS [place] Administration Bisacodyl 10 mg 05/19/20 09:55 05/19/20 11:46 Bisacodyl 10 Mg Supp SC 10 mg DAILYPRN PRN Administration Constipation Carvedilol 25 mg 05/25/20 17:00 05/25/20 18:12 Carvedilol 25 Mg Tab PO 25 mg BID-WM [place] Administration Enoxaparin Sodium 70 mg 05/07/20 21:00 05/25/20 19:26 Enoxaparin Sodium 80 Mg/0.8 Ml Syringe SC 70 mg 0900,2100 [place] Administration Famotidine 20 mg 05/18/20 09:00 05/25/20 10:01 Famotidine 20 Mg Tab PER TUBE 20 mg BID [place] Administration Hydralazine HCl 25 mg 05/11/20 09:00 05/25/20 19:26 Hydralazine 25 Mg Tab PO 25 mg TID [place] Administration Fentanyl Citrate 2,000 mcg/ 100 mls @ 0 mls/hr 05/19/20 20:45 05/25/20 12:45 Sodium Chloride IV 100 mls INF [place] Administration Protocol Per Protocol Insulin Glargine 40 units/ 0.4 mls @ 0 mls/hr 05/20/20 21:00 05/25/20 19:23 Miscellaneous Medication SC 0.4 mls HS [place] Administration Insulin Glargine 50 units/ 0.5 mls @ 0 mls/hr 05/20/20 09:00 05/25/20 10:00 Miscellaneous Medication SC 0.5 mls QAM [place] Administration Insulin Human Lispro 0 units 05/07/20 20:06 05/23/20 08:55 Humalog 300 Units/3 Ml Vial SC 6 unit .BEDTIME SLIDING SC PRN Administration Bedtime Correctional Scale Insulin Human Lispro 0 units 05/18/20 17:45 05/25/20 12:43 Humalog 300 Units/3 Ml Vial SC 6 unit .AGGRESSIVE SLIDING PRN Administration AGGRESSIVE SLIDING SCALE Protocol Labetalol HCl 10 mg 05/07/20 10:55 05/25/20 13:10 Labetalol Hcl 100 Mg/20 Ml Vial SLOW IVP 10 mg Q4H PRN Administration SBP Greater Than 180 Lisinopril 20 mg 05/24/20 09:00 05/25/20 10:01 Lisinopril 20 Mg Tab PO 20 mg DAILY [place] Administration Methylprednisolone Sodium Succinate 40 mg 05/25/20 21:00 05/25/20 19:24 Methylprednisolone Sod Succ 40 Mg Vial IVP 40 mg BID [place] Administration Mometasone Furoate/Formoterol Fumar 2 puff 05/07/20 18:30 05/25/20 18:31 Mometasone 200 Mcg/Formoterol 5 Mcg 120 Puff Inhaler INH 2 puff BID-RT [place] Administration Polyethylene Glycol 17 gm 05/20/20 09:00 05/25/20 12:44 Polyethylene Glycol 3350 17 Gm Packet PER TUBE Not Given DAILY [place] Propofol 1,000 mg 05/09/20 07:30 05/25/20 19:25 Propofol 1,000 Mg/100 Ml Vial IV 06/08/20 07:30 1,000 mg INF PRN Administration TO ACHIEVE GOAL RASS Protocol Risperidone 1 mg 05/22/20 09:00 05/25/20 19:25 Risperidone 1 Mg Tab PO 1 mg BID [place] Administration Sodium Chloride 10 ml 05/08/20 21:00 05/25/20 10:05 Flush - Normal Saline 10 Ml Syringe IVF 10 ml Q12HR [place] Administration - Exam General Appearance: ill appearing General - other findings: sedate on mech vent Eye: PERRL, anicteric sclera ENT: normocephalic atraumatic, no oropharyngeal lesions ENT - other findings: ETT in place Neck: supple, symmetric, no JVD, no thyromegaly, no lymphadenopathy Heart: RRR, no gallops, no rubs, normal peripheral pulses Heart - other findings: S1, S2 Respiratory: rhonchi Respiratory - other findings: coarse bilat, diminished in all miller Gastrointestinal: soft, non-tender, non-distended, normal bowel sounds, no palpable masses Extremities: no cyanosis, no clubbing, no edema Skin: normal turgor Musculoskeletal: generalized weakness Psychiatric: somnolent, lethargic Hosp A/P (1) Acute respiratory failure with hypoxia Code(s): J96.01 - ACUTE RESPIRATORY FAILURE WITH HYPOXIA Status: Acute Plan: Prolonged mech ventilation requirement and unable to wean, planning for Trach/PEG early next week (2) COVID-19 Code(s): U07.1 - COVID-19 Status: Acute Plan: S/p convalescent plasma/Remdesivir, continue Solumedrol/Lovenox/O2 support (3) Pneumothorax on left Code(s): J93.9 - PNEUMOTHORAX, UNSPECIFIED Status: Acute Plan: s/p L-sided chest tube, decreased volume of ptx on CXR, continue to monitor, serial PCXR (4) Normocytic anemia Code(s): D64.9 - ANEMIA, UNSPECIFIED Status: Chronic Plan: Stable H/H currently, monitor trend given therapeutic Lovenox (5) Diabetes mellitus Code(s): E11.9 - TYPE 2 DIABETES MELLITUS WITHOUT COMPLICATIONS Status: Chronic Plan: Continue ISS, Glargine 50u qam/40u qhs, serial accuchecks - Plan social work manager, respiratory therapy, DVT proph w/SCDs Consults: Palliative Care Continue critical support Likely will need Trach/PEG early next week Continue Solumedrol/Lovenox Continue Coreg 25mg BID Am lab: BMP, CBC, ABG PCXR in am
[2020-05-26] MEDS: PROVENTIL INHALER 6.7 G (200 INHALATIONS) INH SCH ×4 (00:26→18:11)
[2020-05-26] MEDS: fentaNYL Citrate/PF 2,000 MCG in Sodium Chloride 0.9% 60 ML IV SCH ×2 (01:23→15:12)
[2020-05-26] MEDS: Propofol 1,000 MG/100 ML VIAL IV PRN ×5 (03:00→21:28)
[2020-05-26 03:57] LABS: Anion Gap 9 mmol/L (10-20); BUN (Urea Nitrogen) 21 mg/dL (9.8-20.1); Calc. Creatinine Clearance 0 mL/min (70-130); Calcium 7.4 mg/dL (7.8-10.44); Carbon Dioxide 29 mmol/L (23-31); Chloride 103 mmol/L (98-107); Estimated GFR-MDRD Greater than 90; Glucose 140 mg/dL (80-115); Potassium 4.3 mmol/L (3.5-5.1); Sodium 137 mmol/L (136-145)
[2020-05-26 04:03] LABS: Band 16 % (5-11); Eosinophils 1 % (0-10); Hemoglobin 8.8 g/dL (12.0-16.0); Hypochromia SLIGHT = 6-15 cells (100X) (0-5/hpf); Lymphocytes 8 % (21-51); MDiff Complete? YES; Mean Corpuscular HGB CONC 32.6 g/dL (32.0-36.0); Mean Corpuscular Hemoglobin 30.7 pg (27.0-31.0); Mean Corpuscular Volume 94.3 fL (78.0-98.0); Mean Platelet Volume 9.1 fL (7.4-10.4); Metamyelocyte 1 % (0-0); Monocytes 3 % (0-10); Neutrophil 71 % (42-75); Platelet Count 128 thou/uL (130-400); Platelet Morphology Comment Appears Adequate; RBC Distribution Width 15.3 % (11.5-14.5); Red Blood Cell (RBC) Count 2.87 mill/uL (4.20-5.40); White Blood Cell (WBC) Count 11.2 thou/uL (4.8-10.8)
[2020-05-26] MEDS: Mometasone 200 MCG/Formoterol 5 MCG 120 PUFF INHALER INH SCH ×2 (06:45→18:11)
[2020-05-26 07:21] LABS: Actual Bicarbonate (HCO3a) 34.9 mEq/L (22-28); Base Excess (BEa) 6.9 mEq/L (-2.0 to +3.0); Carboxyhemoglobin (COHb) 0.9 gm% (0.0-3.0); Hemoglobin (Hb) 9.1 g/dL (12.0-16.0); Potassium - ABG Lab 4.24 mmol/L (3.70-5.30); pH, Arterial 7.29 (7.35-7.45)
[2020-05-26 07:26] LABS: CO2 Tension 73.5 mmHg (35.0-45.0); O2 Tension (PaO2), arterial 57.4 mmHg (> 80.0)
[2020-05-26 07:27] LABS: ALV-art Gradient 171.575 mmHg (0-20); Puncture Site LRA
--- NOTE | 2020-05-26 07:45 | RAD ---
XR Chest 1 View Portable History: Ventilated patient Comparison: Radiograph prior day Findings: Endotracheal tube tip above the tomas 2 cm. Left-sided thoracostomy tube is similar with t ip at the apex. Subcutaneous emphysema has not improved. No acute osseous abnormality. Airspace opacities have not improved. Impression: Similar examination of the chest. No significant improvement in airspace consolidation no r subcutaneous emphysema.
[2020-05-26] MEDS: Carvedilol 25 MG TAB PO SCH ×2 (08:14→17:43)
[2020-05-26] MEDS: Enoxaparin Sodium 80 MG/0.8 ML SYRINGE SC SCH ×2 (08:32→19:56)
[2020-05-26] MEDS: Lisinopril 20 MG TAB PO SCH (08:33)
[2020-05-26] MEDS: Amlodipine 10 MG TAB PO SCH (08:33)
[2020-05-26] MEDS: hydrALAZINE 25 MG TAB PO SCH ×3 (08:34→19:56)
[2020-05-26] MEDS: Aspirin 81 mg Enteric Coated Tablet PO SCH (08:34)
[2020-05-26] MEDS: Famotidine 20 MG TAB PER TUBE SCH ×2 (08:35→19:56)
[2020-05-26] MEDS: Polyethylene Glycol 3350 17 GM Packet PER TUBE SCH (08:36)
[2020-05-26] MEDS: methylPREDNISolone Sod Succ 40 MG VIAL IVP SCH ×2 (08:36→19:57)
[2020-05-26] MEDS: risperiDONE 1 MG TAB PO SCH ×2 (08:37→19:57)
--- NOTE | 2020-05-26 09:38 | PRG ---
DATE OF SERVICE: 05/26/2020 SUBJECTIVE: Remains in the ICU, intubated in the vent. OBJECTIVE: VITAL SIGNS: Pulse 79, blood pressure 137/64, respirations 18. CHEST: No wheezing. No crackles. CARDIAC: Normal S1, S2. No gallops. ABDOMEN: No masses. I's and O's have been consistently positive. LABORATORY DATA: Labs surprisingly shows pCO2 of 73, PO2 of . Pressure support 15, PEEP of 8. White count 11,000, H and H 9 and 27, platelet count 120. X-ray looks slightly worsening infiltrates, 16 bands. ASSESSMENT: 1. Bilateral bronchopneumonia, ARDS, farooq positive pneumonia. 2. Possibly superimposed pneumonia now. 3. Prolonged intubation three weeks for encephalopathy, hypertension. PLAN: Medications being adjusted. I have started empiric antibiotics for possibly hospital-acquired infection. We are trying to plan trach and PEG next week. One-half hour of critical time. Job ID: [id number]
[2020-05-26] MEDS: Insulin Glargine 50 UNITS in Pre-Filled Syringe 1 EACH SC SCH (09:47)
[2020-05-26] MEDS: Cefepime 2 GM in Sodium Chloride 0.9% 100 ML IVPB SCH ×2 (09:48→19:56)
[2020-05-26] MEDS: ALPRAZolam 0.25 MG TAB PO PRN (15:12)
[2020-05-26] MEDS: Atorvastatin Calcium 10 MG TAB PO SCH (19:56)
[2020-05-26] MEDS: Insulin Glargine 40 UNITS in Pre-Filled Syringe 1 EACH SC SCH (19:57)
[2020-05-27] MEDS: Propofol 1,000 MG/100 ML VIAL IV PRN ×6 (00:50→23:46)
[2020-05-27] MEDS: PROVENTIL INHALER 6.7 G (200 INHALATIONS) INH SCH ×4 (01:07→18:14)
[2020-05-27 04:07] LABS: Band 33 % (5-11); Hemoglobin 7.5 g/dL (12.0-16.0); Lymphocytes 2 % (21-51); MDiff Complete? YES; Mean Corpuscular HGB CONC 34.1 g/dL (32.0-36.0); Mean Corpuscular Hemoglobin 31.6 pg (27.0-31.0); Mean Corpuscular Volume 92.5 fL (78.0-98.0); Mean Platelet Volume 8.8 fL (7.4-10.4); Monocytes 1 % (0-10); Neutrophil 64 % (42-75); Platelet Count 96 thou/uL (130-400); Platelet Morphology Comment Appears Decreased; RBC Distribution Width 14.8 % (11.5-14.5); Red Blood Cell (RBC) Count 2.37 mill/uL (4.20-5.40)
[2020-05-27 04:12] LABS: Anion Gap 11 mmol/L (10-20); BUN (Urea Nitrogen) 27 mg/dL (9.8-20.1); Calc. Creatinine Clearance 106 mL/min (70-130); Calcium 7.4 mg/dL (7.8-10.44); Carbon Dioxide 29 mmol/L (23-31); Chloride 104 mmol/L (98-107); Estimated GFR-MDRD Greater than 90; Glucose 138 mg/dL (80-115); Potassium 4.2 mmol/L (3.5-5.1); Sodium 140 mmol/L (136-145)
[2020-05-27] MEDS: fentaNYL Citrate/PF 2,000 MCG in Sodium Chloride 0.9% 60 ML IV SCH ×2 (04:27→17:56)
[2020-05-27] MEDS: Mometasone 200 MCG/Formoterol 5 MCG 120 PUFF INHALER INH SCH ×2 (06:30→18:14)
[2020-05-27 06:56] LABS: Actual Bicarbonate (HCO3a) 27.1 mEq/L (22-28); Base Excess (BEa) 3.4 mEq/L (-2.0 to +3.0); CO2 Tension 36.4 mmHg (35.0-45.0); Calcium, Ionized (arterial) 1.09 mmol/L (1.12-1.30); Carboxyhemoglobin (COHb) 0.8 gm% (0.0-3.0); Hemoglobin (Hb) 6.2 g/dL (12.0-16.0); Potassium - ABG Lab 3.86 mmol/L (3.70-5.30); pH, Arterial 7.49 (7.35-7.45)
[2020-05-27 07:46] LABS: O2 Tension (PaO2), arterial 54.6 mmHg (> 80.0); Puncture Site LRA
[2020-05-27] MEDS: Carvedilol 25 MG TAB PO SCH ×2 (08:00→17:56)
--- NOTE | 2020-05-27 09:45 | PDOC.HOSPP ---
- Subjective Encounter Date: 05/27/20 Encounter Time: 11:00 Subjective: Patient remains sedated on the vent. No changes overnight. - Objective Vital Signs & Weight: Vital Signs (12 hours) Temp Pulse Resp BP Pulse Ox 05/27/20 08:00 20 96 05/27/20 06:30 57 L 125/46 L 05/27/20 06:00 20 05/27/20 04:00 20 05/27/20 03:00 99.0 F 05/27/20 02:41 59 L 121/42 L 05/27/20 02:00 20 05/27/20 00:00 20 05/26/20 23:00 98.6 F 05/26/20 22:08 63 113/47 L 05/26/20 22:00 20 Weight Admit Weight 156 lb Weight 156 lb 1.396 oz Most Recent Monitor Data Heart Rate from ECG 55 NIBP 116/50 NIBP BP-Mean 72 Respiration from ECG 22 SpO2 96 I&O: 05/26/20 05/27/20 05/28/20 06:59 06:59 05:59 Intake Total 2415.3 2315.7 120 Output Total 1270 2010 100 Balance 1145.3 305.7 20 Result Diagrams: 05/27/20 03:09 05/27/20 03:09 Additional Labs: Accuchecks 05/26/20 05/26/20 05/26/20 20:05 18:07 14:27 POC Glucose 138 H 146 H 96 05/25/20 05/25/20 05/25/20 23:16 16:10 10:53 POC Glucose 137 H 149 H 209 H 05/24/20 05/24/20 22:46 17:09 POC Glucose 145 H 78 Hospitalist ROS - Review of Systems ROS unobtainable: due to endotracheal tube - Medication Medications: Active Medications Generic Name Dose Route Start Last Admin Trade Name Freq PRN Reason Stop Dose Admin Acetaminophen 650 mg 05/07/20 19:41 05/24/20 03:46 Acetaminophen 325 Mg Tab PO 650 mg Q4H PRN Administration Headache/Fever or Pain Albuterol Sulfate 2 puff 05/07/20 19:00 05/27/20 06:30 Proventil Inhaler 6.7 G (200 Inhalations) INH 2 puff [id number] [place] Administration Alprazolam 0.25 mg 05/18/20 16:51 05/26/20 15:12 Alprazolam 0.25 Mg Tab PO 0.25 mg BIDPRN PRN Administration Anxiety Amlodipine Besylate 10 mg 05/14/20 09:00 05/26/20 08:33 Amlodipine 10 Mg Tab PO 10 mg DAILY [place] Administration Aspirin 81 mg 05/09/20 09:00 05/26/20 08:34 Aspirin 81 Mg Enteric Coated Tablet PO 81 mg DAILY [place] Administration Atorvastatin Calcium 10 mg 05/08/20 21:00 05/26/20 19:56 Atorvastatin Calcium 10 Mg Tab PO 10 mg HS [place] Administration Bisacodyl 10 mg 05/19/20 09:55 05/19/20 11:46 Bisacodyl 10 Mg Supp [place] 10 mg DAILYPRN PRN Administration Constipation Carvedilol 25 mg 05/25/20 17:00 05/26/20 17:43 Carvedilol 25 Mg Tab PO 25 mg BID-WM [place] Administration Enoxaparin Sodium 70 mg 05/07/20 21:00 05/26/20 19:56 Enoxaparin Sodium 80 Mg/0.8 Ml Syringe SC 70 mg 0900,2100 [place] Administration Famotidine 20 mg 05/18/20 09:00 05/26/20 19:56 Famotidine 20 Mg Tab PER TUBE 20 mg BID [place] Administration Hydralazine HCl 25 mg 05/11/20 09:00 05/26/20 19:56 Hydralazine 25 Mg Tab PO 25 mg TID [place] Administration Fentanyl Citrate 2,000 mcg/ 100 mls @ 0 mls/hr 05/19/20 20:45 05/27/20 04:27 Sodium Chloride IV 100 mls INF [place] Administration Protocol Per Protocol Insulin Glargine 40 units/ 0.4 mls @ 0 mls/hr 05/20/20 21:00 05/26/20 19:57 Miscellaneous Medication SC 0.4 mls HS [place] Administration Insulin Glargine 50 units/ 0.5 mls @ 0 mls/hr 05/20/20 09:00 05/26/20 09:47 Miscellaneous Medication SC 0.5 mls QAM [place] Administration Cefepime HCl 2 gm/ Sodium 100 mls @ 200 mls/hr 05/26/20 09:00 05/26/20 19:56 Chloride IVPB 100 mls Q12HR [place] Administration Insulin Human Lispro 0 units 05/07/20 20:06 05/23/20 08:55 Humalog 300 Units/3 Ml Vial SC 6 unit .BEDTIME SLIDING SC PRN Administration Bedtime Correctional Scale Insulin Human Lispro 0 units 05/18/20 17:45 05/25/20 12:43 Humalog 300 Units/3 Ml Vial SC 6 unit .AGGRESSIVE SLIDING PRN Administration AGGRESSIVE SLIDING SCALE Protocol Labetalol HCl 10 mg 05/07/20 10:55 05/25/20 13:10 Labetalol Hcl 100 Mg/20 Ml Vial SLOW IVP 10 mg Q4H PRN Administration SBP Greater Than 180 Lisinopril 20 mg 05/24/20 09:00 05/26/20 08:33 Lisinopril 20 Mg Tab PO 20 mg DAILY [place] Administration Methylprednisolone Sodium Succinate 40 mg 05/25/20 21:00 05/26/20 19:57 Methylprednisolone Sod Succ 40 Mg Vial IVP 40 mg BID [place] Administration Mometasone Furoate/Formoterol Fumar 2 puff 05/07/20 18:30 05/27/20 06:30 Mometasone 200 Mcg/Formoterol 5 Mcg 120 Puff Inhaler INH 2 puff BID-RT [place] Administration Polyethylene Glycol 17 gm 05/20/20 09:00 05/26/20 08:36 Polyethylene Glycol 3350 17 Gm Packet PER TUBE Not Given DAILY [place] Propofol 1,000 mg 05/09/20 07:30 05/27/20 04:25 Propofol 1,000 Mg/100 Ml Vial IV 06/08/20 07:30 1,000 mg INF PRN Administration TO ACHIEVE GOAL RASS Protocol Risperidone 1 mg 05/22/20 09:00 05/26/20 19:57 Risperidone 1 Mg Tab PO 1 mg BID [place] Administration Sodium Chloride 10 ml 05/08/20 21:00 05/26/20 19:57 Flush - Normal Saline 10 Ml Syringe IVF 10 ml Q12HR [place] Administration - Exam General - other findings: sedated on vent ENT: moist mucosa Heart: RRR, no murmur, no gallops, no rubs Respiratory: CTAB, no wheezes, no rales, no ronchi Respiratory - other findings: left chest tube in place on suction Gastrointestinal: soft, non-tender, non-distended, normal bowel sounds Psychiatric - other findings: sedated on the vent Hosp A/P - Plan This is a 64 years old pleasant female, who has significant past medical history of diabetes type 2, hypertension, who was diagnosed with Covid- 19 about a week ago presented to the ED with worsening dyspnea and hypoxia Acute hypoxic respiratory failure - secondary to COVID-19 --pt remains intubated Antibiotics discontinued. Continue corticosteroids. Status post remdesivir and convalescent plasma --Continue vent management per pulmonology. --Tracheostomy and PEG planned for next week Pneumothorax --Dr. Vazquez placed a chest tube Hypernatremia and hyperchloremia- improved -- Increased water flushes. Constipation MiraLAX and Dulcolax suppositories initiated. Having BMs now. COVID-19 pneumonia --Management as above Diabetes type 2 --Sugar levels better controlled on Lantus to 50 units in the morning and 40 units in the evening. Hypertensive urgency - BP improved --cont Ramipril, Coreg, and amlodipine. --prn Vasotec and Labetalol prn (shortage on hydralazine) Dyslipidemia --resumed statin Transient episode of SVT --resolved. d/t above. Added Coreg for rate control DVT ppx: Lovenox therapeutic GI ppx: Pepcid Code Status: Full code Anticipated Dispo: Overall poor prognosis, will need trach and prolonged post- hospital care
[2020-05-27] MEDS: Lisinopril 20 MG TAB PO SCH (09:54)
[2020-05-27] MEDS: Aspirin 81 mg Enteric Coated Tablet PO SCH (09:54)
[2020-05-27] MEDS: Enoxaparin Sodium 80 MG/0.8 ML SYRINGE SC SCH ×2 (09:54→20:31)
[2020-05-27] MEDS: Amlodipine 10 MG TAB PO SCH (09:55)
[2020-05-27] MEDS: methylPREDNISolone Sod Succ 40 MG VIAL IVP SCH ×2 (09:55→20:33)
[2020-05-27] MEDS: risperiDONE 1 MG TAB PO SCH ×2 (09:55→20:32)
[2020-05-27] MEDS: Famotidine 20 MG TAB PER TUBE SCH ×2 (09:55→20:32)
[2020-05-27] MEDS: hydrALAZINE 25 MG TAB PO SCH ×3 (09:55→20:32)
[2020-05-27] MEDS: Cefepime 2 GM in Sodium Chloride 0.9% 100 ML IVPB SCH ×2 (09:56→20:31)
[2020-05-27] MEDS: Polyethylene Glycol 3350 17 GM Packet PER TUBE SCH (09:57)
[2020-05-27] MEDS: Insulin Glargine 50 UNITS in Pre-Filled Syringe 1 EACH SC SCH (10:01)
--- NOTE | 2020-05-27 14:28 | PRG ---
DATE OF SERVICE: 05/27/2020 SUBJECTIVE: There has not been a significant change. She continues to receive significant ventilatory support without any reduction including a rate of 20, pressure control of 35, FiO2 of 45. She has been placed on empiric antibiotics now because of consolidations and a long hospital stay with possible secondary infection. The plan is for possible trach and PEG later in the week. OBJECTIVE: VITAL SIGNS: Blood pressure 182/67, heart rate 70, saturation 91%, and respirations 22. LUNGS: Show coarse rhonchi without wheezing. HEART: Regular rate and rhythm. ABDOMEN: Soft. There is no organomegaly. EXTREMITIES: There is 1+ edema. There are no cords or tenderness. LABORATORY DATA: White count is 5000, hemoglobin 7.5 with hematocrit of 21.9, platelet count 96,000. There are 64 neutrophils and 33 bands. Blood gas includes pH 7.49, pCO2 of 36, PO2 55, and bicarbonate 27. Chemistries include sodium 140, potassium 4.2, chloride 104, CO2 is 29, BUN 27, creatinine 0.6. There was no x-ray today. IMPRESSION: 1. COVID pneumonia with respiratory failure. 2. Leukocytosis with left shift, now on empiric broad-spectrum antibiotics (cefepime). PLAN: We will continue current ventilator support with expectation of trach and PEG later this week unless there is a dramatic degree of recovery. Unfortunately, there is little else to offer at this point. Critical care, 32 minutes. Job ID: [id number]
[2020-05-27] MEDS: Labetalol HCl 100 MG/20 ML VIAL SLOW IVP PRN (15:00)
--- NOTE | 2020-05-27 15:09 | PDOC.HOSPP ---
- Subjective Encounter Date: 05/26/20 Encounter Time: 10:30 Subjective: pt intubated - Objective Vital Signs & Weight: Vital Signs (12 hours) Temp Pulse Resp BP Pulse Ox 05/27/20 14:21 71 182/66 H 05/27/20 14:00 20 05/27/20 12:00 98.7 F 20 05/27/20 10:00 20 05/27/20 09:59 58 L 123/45 L 05/27/20 09:55 57 L 125/46 L 05/27/20 09:54 129/53 L 05/27/20 08:00 98.2 F 20 96 05/27/20 06:30 57 L 125/46 L 05/27/20 06:00 20 05/27/20 04:00 20 05/27/20 03:00 99.0 F Weight Admit Weight 156 lb Weight 156 lb 1.396 oz Most Recent Monitor Data Heart Rate from ECG 75 NIBP 184/82 NIBP BP-Mean 116 Respiration from ECG 17 SpO2 93 I&O: 05/26/20 05/27/20 05/28/20 06:59 06:59 05:59 Intake Total 2415.3 2315.7 120 Output Total 1270 2009 990 Balance 1145.3 305.7 -870 Result Diagrams: 05/28/20 04:15 05/28/20 04:15 Additional Labs: Accuchecks 05/27/20 05/26/20 05/26/20 11:18 20:05 18:07 POC Glucose 117 H 138 H 146 H 05/26/20 05/25/20 05/25/20 14:27 23:16 16:10 POC Glucose 96 137 H 149 H 05/25/20 05/24/20 05/24/20 10:53 22:46 17:09 POC Glucose 209 H 145 H 78 Hospitalist ROS - Medication Medications: Active Medications Generic Name Dose Route Start Last Admin Trade Name Freq PRN Reason Stop Dose Admin Acetaminophen 650 mg 05/07/20 19:41 05/24/20 03:46 Acetaminophen 325 Mg Tab PO 650 mg Q4H PRN Administration Headache/Fever or Pain Albuterol Sulfate 2 puff 05/07/20 19:00 05/27/20 13:25 Proventil Inhaler 6.7 G (200 Inhalations) INH 2 puff [id number] [place] Administration Alprazolam 0.25 mg 05/18/20 16:51 05/26/20 15:12 Alprazolam 0.25 Mg Tab PO 0.25 mg BIDPRN PRN Administration Anxiety Amlodipine Besylate 10 mg 05/14/20 09:00 05/27/20 09:55 Amlodipine 10 Mg Tab PO 10 mg DAILY [place] Administration Aspirin 81 mg 05/09/20 09:00 05/27/20 09:54 Aspirin 81 Mg Enteric Coated Tablet PO 81 mg DAILY [place] Administration Atorvastatin Calcium 10 mg 05/08/20 21:00 05/26/20 19:56 Atorvastatin Calcium 10 Mg Tab PO 10 mg HS [place] Administration Bisacodyl 10 mg 05/19/20 09:55 05/19/20 11:46 Bisacodyl 10 Mg Supp [place] 10 mg DAILYPRN PRN Administration Constipation Carvedilol 25 mg 05/25/20 17:00 05/27/20 08:00 Carvedilol 25 Mg Tab PO Not Given BID-WM [place] Enoxaparin Sodium 70 mg 05/07/20 21:00 05/27/20 09:54 Enoxaparin Sodium 80 Mg/0.8 Ml Syringe SC 70 mg 0900,2100 [place] Administration Famotidine 20 mg 05/18/20 09:00 05/27/20 09:55 Famotidine 20 Mg Tab PER TUBE 20 mg BID [place] Administration Hydralazine HCl 25 mg 05/11/20 09:00 05/27/20 09:55 Hydralazine 25 Mg Tab PO 25 mg TID [place] Administration Fentanyl Citrate 2,000 mcg/ 100 mls @ 0 mls/hr 05/19/20 20:45 05/27/20 04:27 Sodium Chloride IV 100 mls INF [place] Administration Protocol Per Protocol Insulin Glargine 40 units/ 0.4 mls @ 0 mls/hr 05/20/20 21:00 05/26/20 19:57 Miscellaneous Medication SC 0.4 mls HS [place] Administration Insulin Glargine 50 units/ 0.5 mls @ 0 mls/hr 05/20/20 09:00 05/27/20 10:01 Miscellaneous Medication SC 0.5 mls QAM [place] Administration Cefepime HCl 2 gm/ Sodium 100 mls @ 200 mls/hr 05/26/20 09:00 05/27/20 09:56 Chloride IVPB 100 mls Q12HR [place] Administration Insulin Human Lispro 0 units 05/07/20 20:06 05/23/20 08:55 Humalog 300 Units/3 Ml Vial SC 6 unit .BEDTIME SLIDING SC PRN Administration Bedtime Correctional Scale Insulin Human Lispro 0 units 05/18/20 17:45 05/25/20 12:43 Humalog 300 Units/3 Ml Vial SC 6 unit .AGGRESSIVE SLIDING PRN Administration AGGRESSIVE SLIDING SCALE Protocol Labetalol HCl 10 mg 05/07/20 10:55 05/25/20 13:10 Labetalol Hcl 100 Mg/20 Ml Vial SLOW IVP 10 mg Q4H PRN Administration SBP Greater Than 180 Lisinopril 20 mg 05/24/20 09:00 05/27/20 09:54 Lisinopril 20 Mg Tab PO 20 mg DAILY [place] Administration Methylprednisolone Sodium Succinate 40 mg 05/25/20 21:00 05/27/20 09:55 Methylprednisolone Sod Succ 40 Mg Vial IVP 40 mg BID [place] Administration Mometasone Furoate/Formoterol Fumar 2 puff 05/07/20 18:30 05/27/20 06:30 Mometasone 200 Mcg/Formoterol 5 Mcg 120 Puff Inhaler INH 2 puff BID-RT [place] Administration Polyethylene Glycol 17 gm 05/20/20 09:00 05/27/20 09:57 Polyethylene Glycol 3350 17 Gm Packet PER TUBE Not Given DAILY [place] Propofol 1,000 mg 05/09/20 07:30 05/27/20 04:25 Propofol 1,000 Mg/100 Ml Vial IV 06/08/20 07:30 1,000 mg INF PRN Administration TO ACHIEVE GOAL RASS Protocol Risperidone 1 mg 05/22/20 09:00 05/27/20 09:55 Risperidone 1 Mg Tab PO 1 mg BID [place] Administration Sodium Chloride 10 ml 05/08/20 21:00 05/27/20 10:00 Flush - Normal Saline 10 Ml Syringe IVF 10 ml Q12HR [place] Administration Hosp A/P (1) Acute respiratory failure with hypoxia Code(s): J96.01 - ACUTE RESPIRATORY FAILURE WITH HYPOXIA Status: Acute (2) COVID-19 Code(s): U07.1 - COVID-19 Status: Acute (3) Diabetes type 2, controlled Code(s): E11.9 - TYPE 2 DIABETES MELLITUS WITHOUT COMPLICATIONS Status: Acute (4) Diabetes mellitus Code(s): E11.9 - TYPE 2 DIABETES MELLITUS WITHOUT COMPLICATIONS Status: Chronic - Plan pt not seen today, she will undergo trach and peg. will continue Loven ox/solumedrol. will check labs in am. pt start pt on iv abx.
[2020-05-27] MEDS: HumaLOG 300 UNITS/3 ML VIAL SC PRN (18:20)
[2020-05-27] MEDS: Atorvastatin Calcium 10 MG TAB PO SCH (20:32)
[2020-05-27] MEDS: Insulin Glargine 40 UNITS in Pre-Filled Syringe 1 EACH SC SCH (20:33)
[2020-05-28] MEDS: PROVENTIL INHALER 6.7 G (200 INHALATIONS) INH SCH ×4 (01:17→18:16)
[2020-05-28] MEDS: Propofol 1,000 MG/100 ML VIAL IV PRN ×2 (04:51→10:32)
[2020-05-28 04:57] LABS: Band 9 % (5-11); Hemoglobin 8.1 g/dL (12.0-16.0); Lymphocytes 4 % (21-51); MDiff Complete? YES; Mean Corpuscular HGB CONC 33.3 g/dL (32.0-36.0); Mean Corpuscular Volume 93.1 fL (78.0-98.0); Mean Platelet Volume 9.3 fL (7.4-10.4); Monocytes 2 % (0-10); Neutrophil 85 % (42-75); Platelet Count 105 thou/uL (130-400); Platelet Morphology Comment Appears Decreased; RBC Distribution Width 15.2 % (11.5-14.5); RBC Morphology Normal; Red Blood Cell (RBC) Count 2.62 mill/uL (4.20-5.40); White Blood Cell (WBC) Count 6.1 thou/uL (4.8-10.8)
[2020-05-28 04:58] LABS: Anion Gap 12 mmol/L (10-20); BUN (Urea Nitrogen) 21 mg/dL (9.8-20.1); Calc. Creatinine Clearance 119 mL/min (70-130); Calcium 7.4 mg/dL (7.8-10.44); Carbon Dioxide 28 mmol/L (23-31); Chloride 106 mmol/L (98-107); Estimated GFR-MDRD Greater than 90; Glucose 108 mg/dL (80-115); Potassium 4.1 mmol/L (3.5-5.1); Sodium 142 mmol/L (136-145)
[2020-05-28] MEDS: Labetalol HCl 100 MG/20 ML VIAL SLOW IVP PRN ×2 (06:12→19:43)
[2020-05-28] MEDS: Mometasone 200 MCG/Formoterol 5 MCG 120 PUFF INHALER INH SCH ×2 (06:50→18:16)
[2020-05-28 06:58] LABS: Base Excess (BEa) 4.5 mEq/L (-2.0 to +3.0); CO2 Tension 37.2 mmHg (35.0-45.0); Calcium, Ionized (arterial) 1.04 mmol/L (1.12-1.30); Carboxyhemoglobin (COHb) 0.3 gm% (0.0-3.0); Potassium - ABG Lab 3.88 mmol/L (3.70-5.30)
[2020-05-28 06:59] LABS: Puncture Site LRA
[2020-05-28] MEDS: fentaNYL Citrate/PF 2,000 MCG in Sodium Chloride 0.9% 60 ML IV SCH (08:42)
[2020-05-28] MEDS: Enoxaparin Sodium 80 MG/0.8 ML SYRINGE SC SCH ×2 (09:12→20:27)
[2020-05-28] MEDS: Polyethylene Glycol 3350 17 GM Packet PER TUBE SCH (09:14)
[2020-05-28] MEDS: Insulin Glargine 50 UNITS in Pre-Filled Syringe 1 EACH SC SCH (09:14)
[2020-05-28] MEDS: hydrALAZINE 25 MG TAB PO SCH ×3 (09:14→20:30)
[2020-05-28] MEDS: Carvedilol 25 MG TAB PO SCH ×2 (09:16→17:19)
[2020-05-28] MEDS: Amlodipine 10 MG TAB PO SCH (09:16)
[2020-05-28] MEDS: Aspirin 81 mg Enteric Coated Tablet PO SCH (09:17)
[2020-05-28] MEDS: Famotidine 20 MG TAB PER TUBE SCH ×2 (09:17→20:27)
[2020-05-28] MEDS: Lisinopril 20 MG TAB PO SCH (09:17)
[2020-05-28] MEDS: methylPREDNISolone Sod Succ 40 MG VIAL IVP SCH ×2 (09:17→20:27)
[2020-05-28] MEDS: Cefepime 2 GM in Sodium Chloride 0.9% 100 ML IVPB SCH ×2 (09:18→20:27)
[2020-05-28] MEDS: risperiDONE 1 MG TAB PO SCH ×2 (09:18→20:27)
[2020-05-28] MEDS ORDERED: Scopolamine 1.5 mg/72 hour Patch TD SCH (10:45)
--- NOTE | 2020-05-28 11:43 | PRG ---
DATE OF SERVICE: 05/28/2020 SUBJECTIVE: There has not been a significant loom changer night. She continues to receive significant ventilatory support. There has been no air leak from the chest tube. Blood pressure is not quite as good as we would like using as needed labetalol. She is having a fair amount of oral endotracheal secretions. PHYSICAL EXAMINATION: VITAL SIGNS: Blood pressure 163/86, but has been as high as 224/90. Heart rate is 70, ventilator settings include rate of 20, pressure control ventilation of 35, FiO2 of 0.6. LUNGS: Coarse rhonchi. There is no leak from endotracheal tube. Minimal secretions. HEART: Regular rate and rhythm. ABDOMEN: Soft. She has no organomegaly. She has no edema. LABORATORY DATA: White count 6100, hemoglobin is 8.1 with hematocrit 24.4, and platelet count of 105,000, up slightly from the past couple of days. She has 85 neutrophils and 9 bands. Blood gas today includes pH 7.5, CO2 of 37, pO2 of 66, and bicarbonate of 28. Chemistry includes sodium 142, potassium 4.1, chloride 106, CO2 is 28, BUN 21, and creatinine 0.5. Chest x-ray shows bilateral patchy consolidations. Endotracheal tube is about 2 cm above the tomas. The left chest tube is appropriately placed without pneumothorax or subcutaneous air identified. IMPRESSION: 1. COVID pneumonia with respiratory failure. 2. Hypertension. 3. Spontaneous pneumothorax, now with chest tube. PLAN: I am going to reduce her ventilator rate from 20 to 18. We will add scheduled labetalol p.o. to see if that will help control her blood pressure and I am going to give a trial of scopolamine patches for her secretions. The chest tube remains water-seal, but I do not anticipate removing while on positive-pressure ventilation. Prognosis remains very poor. We will try to communicate this with the family. Job ID: [id number]
[2020-05-28] MEDS: Labetalol 100 MG TAB PO SCH ×2 (14:29→20:26)
[2020-05-28] MEDS: Insulin Glargine 40 UNITS in Pre-Filled Syringe 1 EACH SC SCH (20:32)
[2020-05-28] MEDS: Atorvastatin Calcium 10 MG TAB PO SCH (20:35)
[2020-05-29] MEDS: Propofol 1,000 MG/100 ML VIAL IV PRN ×5 (01:19→21:30)
[2020-05-29] MEDS: PROVENTIL INHALER 6.7 G (200 INHALATIONS) INH SCH ×4 (01:45→18:28)
[2020-05-29] MEDS: fentaNYL Citrate/PF 2,000 MCG in Sodium Chloride 0.9% 60 ML IV SCH ×2 (04:08→17:17)
[2020-05-29 05:06] LABS: Anion Gap 13 mmol/L (10-20); BUN (Urea Nitrogen) 20 mg/dL (9.8-20.1); Calc. Creatinine Clearance 125 mL/min (70-130); Calcium 6.9 mg/dL (7.8-10.44); Carbon Dioxide 27 mmol/L (23-31); Chloride 105 mmol/L (98-107); Estimated GFR-MDRD Greater than 90; Glucose 96 mg/dL (80-115); Potassium 4.4 mmol/L (3.5-5.1); Sodium 141 mmol/L (136-145)
[2020-05-29 05:08] LABS: Band 13 % (5-11); Hemoglobin 8.1 g/dL (12.0-16.0); Lymphocytes 7 % (21-51); MDiff Complete? YES; Mean Corpuscular HGB CONC 35.3 g/dL (32.0-36.0); Mean Corpuscular Hemoglobin 32.9 pg (27.0-31.0); Mean Corpuscular Volume 93.2 fL (78.0-98.0); Mean Platelet Volume 8.8 fL (7.4-10.4); Monocytes 2 % (0-10); Neutrophil 78 % (42-75); Nucleated RBC 1 % (0); Platelet Count 95 thou/uL (130-400); Platelet Morphology Comment Appears Decreased; RBC Distribution Width 15.3 % (11.5-14.5); Red Blood Cell (RBC) Count 2.46 mill/uL (4.20-5.40); White Blood Cell (WBC) Count 5.8 thou/uL (4.8-10.8)
--- NOTE | 2020-05-29 05:53 | PRG ---
DATE OF SERVICE: 05/28/2020 ADDENDUM: Critical care, 35 minutes. Job ID: [id number]
[2020-05-29] MEDS ORDERED: Lidocaine 1% w/Epinephrine 1:100K 20 ML VIAL ONE (06:55)
[2020-05-29] MEDS ORDERED: Midazolam HCl 2 mg/2 ml Vial SLOW IVP SCH (07:00)
[2020-05-29] MEDS ORDERED: Fentanyl 100 MCG/2 ML VIAL SLOW IVP SCH (07:00)
[2020-05-29] MEDS ORDERED: Vecuronium 10 MG VIAL IVP SCH (07:00)
[2020-05-29] MEDS ORDERED: Midazolam HCl 2 mg/2 ml Vial ONE (07:12)
[2020-05-29] MEDS: methylPREDNISolone Sod Succ 40 MG VIAL IVP SCH ×2 (07:19→20:47)
[2020-05-29] MEDS: Amlodipine 10 MG TAB PO SCH (07:19)
[2020-05-29] MEDS: Cefepime 2 GM in Sodium Chloride 0.9% 100 ML IVPB SCH ×2 (07:20→20:41)
[2020-05-29] MEDS: Carvedilol 25 MG TAB PO SCH ×2 (07:22→15:30)
[2020-05-29] MEDS: Mometasone 200 MCG/Formoterol 5 MCG 120 PUFF INHALER INH SCH ×2 (08:51→18:28)
[2020-05-29] MEDS: risperiDONE 1 MG TAB PO SCH ×2 (09:00→20:47)
[2020-05-29] MEDS: Famotidine 20 MG TAB PER TUBE SCH ×2 (09:00→20:47)
[2020-05-29] MEDS: Lisinopril 20 MG TAB PO SCH (09:00)
[2020-05-29] MEDS: Labetalol 100 MG TAB PO SCH ×3 (09:00→20:48)
[2020-05-29] MEDS: hydrALAZINE 25 MG TAB PO SCH ×3 (09:00→20:47)
[2020-05-29] MEDS: Polyethylene Glycol 3350 17 GM Packet PER TUBE SCH (09:00)
--- NOTE | 2020-05-29 09:42 | PRG ---
DATE OF SERVICE: 05/29/2020 SUBJECTIVE: Bhakti Watts undergoing a trach and a PEG this morning. OBJECTIVE: VITAL SIGNS: Temperature 96, respiratory rate 18, saturations 96%, 60% FiO2, high PEEP of 8, blood pressure 113/57. I's and O's consistently negative. CHEST: No wheezing. No crackles. CARDIAC: Normal S1 and S2. No gallops. ABDOMEN: Soft. LABORATORY DATA: Platelet count is decreased to 95, otherwise labs unremarkable. IMPRESSION: Respiratory failure, farooq positive pneumonia, hypertension, probably hospital-acquired infection. Still on risperidone, supportive care, PT. Nutrition. She is not weanable. Post trach and PEG, may consider LTAC. One-half hour critical care time. Job ID: [id number]
[2020-05-29] MEDS: Aspirin 81 mg Enteric Coated Tablet PO SCH (10:00)
--- NOTE | 2020-05-29 11:08 | OP ---
DATE OF PROCEDURE: 05/29/2020 PREOPERATIVE DIAGNOSES: 1. COVID-19 pneumonia. 2. Acute respiratory failure, secondary to COVID-19 pneumonia. POSTOPERATIVE DIAGNOSES: 1. COVID-19 pneumonia. 2. Acute respiratory failure, secondary to COVID-19 pneumonia. PROCEDURES PERFORMED: 1. Percutaneous tracheostomy tube placement. 2. Percutaneous endoscopic gastrostomy tube placement. ANESTHESIA: Deep sedation and local. INDICATIONS FOR PROCEDURE: This is a 64-year-old woman, admitted to intensive care unit, on full mechanical ventilator support. The patient is diagnosed with acute COVID-19 pneumonia with acute respiratory failure. I was asked to place the tracheostomy tube to facilitate ventilator wean. Additionally, a gastrostomy tube was warranted for potential prolonged enteral nutritional supplementation. DESCRIPTION OF PROCEDURE: Informed consent was obtained from the patient's power of claim attorney. The patient was placed in supine position. She is on full mechanical ventilator support with FiO2 set at 100%. She is on Diprivan and fentanyl by continuous infusion to achieve deep sedation. She was then given vecuronium 10 mg intravenously. The anterior neck was sterilely prepped and draped in usual fashion. A fiberoptic bronchoscope was introduced through the previous endotracheal tube and advanced to visualize the tomas. The scope was then withdrawn, transilluminating the anterior neck in the area chosen for the tracheostomy tube. The previous endotracheal tube was withdrawn to 6 cm. At this juncture, the skin 2 fingerbreadths above the suprasternal notch was anesthetized with 1% lidocaine with epinephrine. A 1 cm vertical incision was made using 15 scalpel. An introducer needle was inserted through this incision and advanced through the anterior tracheal wall, visualized by bronchoscopy. Guidewire was advanced through the needle and placed in the distal tracheal lumen without resistance. Needle was withdrawn over the guidewire. Anterior tracheal wall was sterilely dilated over the guidewire. Finally, a size 8 tracheostomy tube with a dilator and introducer catheter were advanced as a unit over the guidewire and placed in the distal tracheal lumen without resistance. The dilator, introducer catheter, and guidewire were then removed as a unit, leaving the tracheostomy tube in place. An inner cannula was inserted through the tracheostomy tube, which was then connected to mechanical ventilator support. When the cuff was inflated, good tidal volume was returned. The tracheostomy tube was secured to anterior neck using 0 silk suture at two points. Sterile dressings and trach tie were applied. The previous bronchoscope and endotracheal tube were withdrawn as a unit, visualizing the tracheostomy site from above with good hemostasis. Once the endotracheal tube was removed, the bronchoscope was reintroduced through the newly placed tracheostomy tube and advanced to visualize the tomas. Finding no bleeding there, the bronchoscope was then withdrawn, visualizing the tracheostomy site from below again with good hemostasis. The patient tolerated this procedure without any apparent complication and remains hemodynamically stable following completion of the tracheostomy. Oxygen saturation was 100% at all times. Attention was then directed to the abdomen, where we will proceed with the gastrostomy tube placement. A mouth guard was put in place and then an endoscope was introduced orally to intubate the esophagus. With gentle insufflation, the scope was directed into the gastric lumen, which itself was then insufflated. The scope was then advanced through a patent pylorus, visualizing the proximal duodenum. No peptic ulcerative disease was noted. The scope was then withdrawn into the gastric lumen, transilluminating the left upper quadrant in the area chosen for gastrostomy tube placement. The abdomen was then widely sterilely prepped and draped in usual fashion. The skin here was anesthetized with 1% lidocaine. A stab incision was made using 11 scalpel. Introducer catheter was advanced through this stab incision, advanced into the gastric lumen, visualized by endoscopy. A guidewire was advanced through this needle and advanced into the gastric lumen and then captured with an Endo Snare. The guidewire with the endoscope was then pulled out by mouth. The guidewire was connected to a 20-Belarusian gastrostomy tube. The distal end of the guidewire was pulled out through the stab incision, leaving the mushroom end of the gastrostomy tube abutting the gastric mucosa. The gastrostomy was secured to anterior abdominal wall at 3 cm using a bolster. The endoscope was again reintroduced into the gastric lumen, visualizing the mushroom end of the gastrostomy tube as it abuts the gastric mucosa. There was no bleeding at the gastrostomy site. The stomach was desufflated. The gastrostomy tube was then fashioned to length. Sterile dressings were applied. The patient tolerated this procedure without any apparent complication and remains hemodynamically stable following completion of the procedure. Job ID: [id number]
[2020-05-29 12:04] LABS: Actual Bicarbonate (HCO3a) 30.2 mEq/L (22-28); Base Excess (BEa) 5.1 mEq/L (-2.0 to +3.0); CO2 Tension 47.9 mmHg (35.0-45.0); Calcium, Ionized (arterial) 1.06 mmol/L (1.12-1.30); Carboxyhemoglobin (COHb) 0.1 gm% (0.0-3.0); Hemoglobin (Hb) 9.2 g/dL (12.0-16.0); Potassium - ABG Lab 4.32 mmol/L (3.70-5.30); pH, Arterial 7.42 (7.35-7.45)
[2020-05-29 12:07] LABS: O2 Tension (PaO2), arterial 51.3 mmHg (> 80.0); Puncture Site RR
[2020-05-29 12:08] LABS: ALV-art Gradient 316.625 mmHg (0-20)
[2020-05-29] MEDS: Insulin Glargine 50 UNITS in Pre-Filled Syringe 1 EACH SC SCH (13:00)
[2020-05-29] MEDS: Dextrose 50% Abboject 50 ML SYRINGE SLOW IVP PRN (16:49)
--- NOTE | 2020-05-29 20:07 | PDOC.HOSPP ---
- Subjective Encounter Date: 05/29/20 Encounter Time: 17:00 Subjective: f/u for COVID PNA/Resp failure s/p trach/PEG today. Remains on full [facility] ventilatory support. - Objective Vital Signs & Weight: Vital Signs (12 hours) Temp Pulse Resp BP 05/29/20 18:00 18 05/29/20 16:31 58 L 123/54 L 05/29/20 16:00 98.5 F 18 05/29/20 15:30 58 L 147/66 H 05/29/20 14:41 58 L 147/66 H 05/29/20 14:00 18 05/29/20 12:00 98.6 F 18 05/29/20 11:45 55 L 141/70 H 05/29/20 10:00 18 05/29/20 09:00 55 L 141/70 H 05/29/20 08:52 59 L 131/56 L Weight Admit Weight 156 lb Weight 148 lb 5.938 oz Most Recent Monitor Data Heart Rate from ECG 58 NIBP 173/76 NIBP BP-Mean 108 Respiration from ECG 18 SpO2 100 I&O: 05/28/20 05/29/20 05/30/20 06:59 06:59 06:59 Intake Total 1631.7 213 Output Total 2755 560 Balance -1123.3 -347 Result Diagrams: 05/29/20 04:12 05/29/20 04:12 Additional Labs: Accuchecks 05/29/20 05/29/20 05/28/20 17:08 10:38 21:14 POC Glucose 131 H 70 149 H 05/28/20 10:12 POC Glucose 118 H Microbiology 05/07/20 08:17 Venous blood - Right Hand Blood Culture - Final NO GROWTH IN 5 DAYS 05/07/20 08:01 Venous blood - Left Arm Blood Culture - Final NO GROWTH IN 5 DAYS Laboratory Tests 05/24/20 05/26/20 05/27/20 13:31 03:30 03:09 Hgb 8.8 L 7.5 L Plt Count 96 L Band Neuts % (Manual) 16 H 33 H SARS-CoV-2 (PCR) DETECTED A* 05/28/20 05/29/20 04:15 04:12 Hgb 8.1 L Plt Count Band Neuts % (Manual) 9 13 H SARS-CoV-2 (PCR) EKG Reviewed by me: Yes (Tele - SR) Hospitalist ROS - Medication Medications: Active Medications Generic Name Dose Route Start Last Admin Trade Name Freq PRN Reason Stop Dose Admin Acetaminophen 650 mg 05/07/20 19:41 05/24/20 03:46 Acetaminophen 325 Mg Tab PO 650 mg Q4H PRN Administration Headache/Fever or Pain Albuterol Sulfate 2 puff 05/07/20 19:00 05/29/20 18:28 Proventil Inhaler 6.7 G (200 Inhalations) INH 2 puff [id number] [place] Administration Amlodipine Besylate 10 mg 05/14/20 09:00 05/29/20 07:19 Amlodipine 10 Mg Tab PO 10 mg DAILY [place] Administration Aspirin 81 mg 05/09/20 09:00 05/29/20 10:00 Aspirin 81 Mg Enteric Coated Tablet PO Not Given DAILY [place] Atorvastatin Calcium 10 mg 05/08/20 21:00 05/28/20 20:35 Atorvastatin Calcium 10 Mg Tab PO 10 mg HS [place] Administration Bisacodyl 10 mg 05/19/20 09:55 05/19/20 11:46 Bisacodyl 10 Mg Supp MO 10 mg DAILYPRN PRN Administration Constipation Carvedilol 25 mg 05/25/20 17:00 05/29/20 15:30 Carvedilol 25 Mg Tab PO 25 mg BID-WM [place] Administration Dextrose/Water 25 gm 05/07/20 20:06 05/29/20 16:49 Dextrose 50% Abboject 50 Ml Syringe SLOW IVP 25 gm PRN PRN Administration Hypoglycemia Famotidine 20 mg 05/18/20 09:00 05/29/20 09:00 Famotidine 20 Mg Tab PER TUBE Not Given BID [place] Hydralazine HCl 25 mg 05/11/20 09:00 05/29/20 16:31 Hydralazine 25 Mg Tab PO 25 mg TID [place] Administration Fentanyl Citrate 2,000 mcg/ 100 mls @ 0 mls/hr 05/19/20 20:45 05/29/20 17:17 Sodium Chloride IV 100 mls INF [place] Administration Protocol Per Protocol Insulin Glargine 40 units/ 0.4 mls @ 0 mls/hr 05/20/20 21:00 05/28/20 20:32 Miscellaneous Medication SC 0.4 mls HS [place] Administration Insulin Glargine 50 units/ 0.5 mls @ 0 mls/hr 05/20/20 09:00 05/29/20 13:00 Miscellaneous Medication SC Not Given QAM [place] Cefepime HCl 2 gm/ Sodium 100 mls @ 200 mls/hr 05/26/20 09:00 05/29/20 07:20 Chloride IVPB 100 mls Q12HR [place] Administration Insulin Human Lispro 0 units 05/07/20 20:06 05/23/20 08:55 Humalog 300 Units/3 Ml Vial SC 6 unit .BEDTIME SLIDING SC PRN Administration Bedtime Correctional Scale Insulin Human Lispro 0 units 05/18/20 17:45 05/27/20 18:20 Humalog 300 Units/3 Ml Vial SC 3 unit .AGGRESSIVE SLIDING PRN Administration AGGRESSIVE SLIDING SCALE Protocol Labetalol HCl 10 mg 05/07/20 10:55 05/28/20 19:43 Labetalol Hcl 100 Mg/20 Ml Vial SLOW IVP 10 mg Q4H PRN Administration SBP Greater Than 180 Labetalol HCl 100 mg 05/28/20 15:00 05/29/20 15:30 Labetalol 100 Mg Tab PO 100 mg TID [place] Administration Lisinopril 20 mg 05/24/20 09:00 05/29/20 09:00 Lisinopril 20 Mg Tab PO Not Given DAILY [place] Methylprednisolone Sodium Succinate 40 mg 05/25/20 21:00 05/29/20 07:19 Methylprednisolone Sod Succ 40 Mg Vial IVP 40 mg BID [place] Administration Mometasone Furoate/Formoterol Fumar 2 puff 05/07/20 18:30 05/29/20 18:28 Mometasone 200 Mcg/Formoterol 5 Mcg 120 Puff Inhaler INH 2 puff BID-RT [place] Administration Polyethylene Glycol 17 gm 05/20/20 09:00 05/29/20 09:00 Polyethylene Glycol 3350 17 Gm Packet PER TUBE Not Given DAILY [place] Propofol 1,000 mg 05/09/20 07:30 05/29/20 17:39 Propofol 1,000 Mg/100 Ml Vial IV 06/08/20 07:30 1,000 mg INF PRN Administration TO ACHIEVE GOAL RASS Protocol Risperidone 1 mg 05/22/20 09:00 05/29/20 09:00 Risperidone 1 Mg Tab PO Not Given BID [place] Sodium Chloride 10 ml 05/08/20 21:00 05/29/20 10:00 Flush - Normal Saline 10 Ml Syringe IVF 10 ml Q12HR [place] Administration - Exam General - other findings: sedate on mech vent Eye: PERRL, anicteric sclera ENT: normocephalic atraumatic, no oropharyngeal lesions ENT - other findings: trach in place Neck: supple, symmetric, no JVD, no thyromegaly Heart: RRR, no gallops, no rubs, normal peripheral pulses Heart - other findings: S1, S2 Respiratory - other findings: diminished in bases, L>R Gastrointestinal: soft, non-distended, normal bowel sounds, no palpable masses Gastrointestinal - other findings: PEG in place Extremities: no cyanosis, no clubbing, no edema Skin: normal turgor, no lesions Musculoskeletal: generalized weakness Psychiatric: somnolent, lethargic Hosp A/P (1) Acute respiratory failure with hypoxia Code(s): J96.01 - ACUTE RESPIRATORY FAILURE WITH HYPOXIA Status: Acute Plan: s/p tracheostomy today, continue ventilatory support (2) COVID-19 Code(s): U07.1 - COVID-19 Status: Acute Plan: Continue Cefepime/Solumedrol/Lovenox/mech ventilation (3) Pneumothorax on left Code(s): J93.9 - PNEUMOTHORAX, UNSPECIFIED Status: Acute Plan: Continue CT drainage (4) Normocytic anemia Code(s): D64.9 - ANEMIA, UNSPECIFIED Status: Chronic (5) Diabetes mellitus Code(s): E11.9 - TYPE 2 DIABETES MELLITUS WITHOUT COMPLICATIONS Status: Chronic - Plan continue antibiotics, PT/OT, psychiatric social worker, respiratory therapy, DVT proph w/SCDs Continue critical support s/p trach/PEG today Continue Solumedrol/Lovenox Continue Coreg 25mg BID LTAC options? Am lab: BMP, CBC, ABG PCXR in am
[2020-05-29] MEDS: Enoxaparin Sodium 80 MG/0.8 ML SYRINGE SC SCH (20:46)
[2020-05-29] MEDS: Atorvastatin Calcium 10 MG TAB PO SCH (20:47)
[2020-05-29] MEDS: Insulin Glargine 40 UNITS in Pre-Filled Syringe 1 EACH SC SCH (22:12)
[2020-05-29] MEDS: Dextrose 5% in Water 1,000 ML IV PRN (22:46)
[2020-05-30] MEDS: PROVENTIL INHALER 6.7 G (200 INHALATIONS) INH SCH ×4 (00:10→18:46)
[2020-05-30] MEDS: Dextrose 5% in Water 1,000 ML IV SCH ×2 (02:00→07:41)
[2020-05-30] MEDS: Labetalol HCl 100 MG/20 ML VIAL SLOW IVP PRN ×2 (02:11→05:30)
[2020-05-30 04:36] LABS: Band 51 % (5-11); Hemoglobin 9.5 g/dL (12.0-16.0); Hypochromia SLIGHT = 6-15 cells (100X) (0-5/hpf); Lymphocytes 2 % (21-51); MDiff Complete? YES; Mean Corpuscular Hemoglobin 30.3 pg (27.0-31.0); Mean Corpuscular Volume 91.8 fL (78.0-98.0); Mean Platelet Volume 9.4 fL (7.4-10.4); Metamyelocyte 1 % (0-0); Neutrophil 46 % (42-75); Platelet Count 120 thou/uL (130-400); Platelet Morphology Comment Appears Decreased; RBC Distribution Width 15.5 % (11.5-14.5); Red Blood Cell (RBC) Count 3.15 mill/uL (4.20-5.40); White Blood Cell (WBC) Count 6.9 thou/uL (4.8-10.8)
[2020-05-30 04:43] LABS: Anion Gap 14 mmol/L (10-20); BUN (Urea Nitrogen) 14 mg/dL (9.8-20.1); Calc. Creatinine Clearance 118 mL/min (70-130); Calcium 7.5 mg/dL (7.8-10.44); Carbon Dioxide 28 mmol/L (23-31); Chloride 102 mmol/L (98-107); Estimated GFR-MDRD Greater than 90; Glucose 135 mg/dL (80-115); Potassium 3.8 mmol/L (3.5-5.1); Sodium 140 mmol/L (136-145)
[2020-05-30 07:19] LABS: Actual Bicarbonate (HCO3a) 28.1 mEq/L (22-28); Base Excess (BEa) 4.5 mEq/L (-2.0 to +3.0); Calcium, Ionized (arterial) 1.03 mmol/L (1.12-1.30); Carboxyhemoglobin (COHb) 0.9 gm% (0.0-3.0); Hemoglobin (Hb) 9.7 g/dL (12.0-16.0); Potassium - ABG Lab 3.91 mmol/L (3.70-5.30); pH, Arterial 7.49 (7.35-7.45)
[2020-05-30 07:21] LABS: O2 Tension (PaO2), arterial 42.8 mmHg (> 80.0); Puncture Site RRA
[2020-05-30] MEDS: Mometasone 200 MCG/Formoterol 5 MCG 120 PUFF INHALER INH SCH ×2 (07:23→18:46)
[2020-05-30] MEDS: Propofol 1,000 MG/100 ML VIAL IV PRN ×2 (07:33→14:43)
[2020-05-30] MEDS: Enoxaparin Sodium 80 MG/0.8 ML SYRINGE SC SCH ×2 (07:34→20:18)
[2020-05-30] MEDS: Cefepime 2 GM in Sodium Chloride 0.9% 100 ML IVPB SCH ×2 (07:35→20:17)
[2020-05-30] MEDS: hydrALAZINE 25 MG TAB PO SCH ×3 (07:36→20:18)
[2020-05-30] MEDS: Lisinopril 20 MG TAB PO SCH (07:37)
[2020-05-30] MEDS: methylPREDNISolone Sod Succ 40 MG VIAL IVP SCH ×2 (07:37→20:19)
[2020-05-30] MEDS: Famotidine 20 MG TAB PER TUBE SCH ×2 (07:37→20:18)
[2020-05-30] MEDS: Aspirin 81 mg Enteric Coated Tablet PO SCH (07:37)
[2020-05-30] MEDS: Carvedilol 25 MG TAB PO SCH ×2 (07:38→17:04)
[2020-05-30] MEDS: risperiDONE 1 MG TAB PO SCH ×2 (07:38→20:19)
[2020-05-30] MEDS: Labetalol 100 MG TAB PO SCH ×3 (07:38→20:18)
[2020-05-30] MEDS: Amlodipine 10 MG TAB PO SCH (07:38)
[2020-05-30] MEDS: Insulin Glargine 50 UNITS in Pre-Filled Syringe 1 EACH SC SCH (07:39)
[2020-05-30] MEDS: Polyethylene Glycol 3350 17 GM Packet PER TUBE SCH (07:40)
[2020-05-30] MEDS ORDERED: fentaNYL Citrate/PF 2,000 MCG in Sodium Chloride 0.9% 60 ML IV SCH (09:15)
--- NOTE | 2020-05-30 10:00 | PRG ---
DATE OF SERVICE: 05/30/2020 SUBJECTIVE: Bhakti Watts is a 64-year-old female, status post trach and PEG. OBJECTIVE: VITAL SIGNS: Pulse 66, blood pressure is 160/80, sats , PEEP of 5, rate of 16. CHEST: Bilateral rhonchi and crackles. CARDIAC: Normal S1, S2. No gallops. ABDOMEN: No masses. LABORATORY STUDIES: PO2 is only 42, pCO2 is 38, pH 7.49, PEEP of 5, 60%. White count 6.9, H and H of 9 and 28, platelet count 120. Lytes are normal. Blood sugar was decreased yesterday because her feedings were withheld. Ensure was withheld too though. X-ray shows persistent bilateral infiltrates. ASSESSMENT AND PLAN: Kimball positive pneumonia, respiratory failure, diabetes, hypertension, encephalopathy. She is clearly not weanable. Vent is being adjusted and start PEG feeding since she has a PEG in place, trach in place. Continue supportive care. She was started on antibiotics empirically after being in the hospital for almost 3 weeks. One-half hour of critical time. Job ID: [id number]
--- NOTE | 2020-05-30 10:19 | RAD ---
PORTABLE CHEST: Date: 05/30/2020 HISTORY: Respiratory distress. COVID pneumonia. COMPARISON: 05/26/2020 exam. FINDINGS: Tracheostomy tube is in place. Left-sided chest tube is present. Subcutaneous emphysema over the ches t is again noted. Bilateral infiltrates are fairly similar to the prior exam. There appears to be per haps some slight worsening to the right lower lobe parenchymal changes. IMPRESSION: Bilateral interstitial alveolar lung changes, fairly similar to the prior examination. Suggestion of perhaps some slight worsening to the changes in the right lung base. POS: LINDSEY
[2020-05-30] MEDS ORDERED: Phenylephrine 0.25% Nasal Spray 15 ML BOT ONE (19:39)
[2020-05-30] MEDS: Atorvastatin Calcium 10 MG TAB PO SCH (20:16)
[2020-05-30] MEDS: cloNIDine 0.1 MG TAB PO SCH (20:17)
[2020-05-30] MEDS: Insulin Glargine 40 UNITS in Pre-Filled Syringe 1 EACH SC SCH (21:39)
[2020-05-30] MEDS: Sodium Chloride 0.9% 1,000 ML IV SCH (21:39)
[2020-05-31] MEDS: PROVENTIL INHALER 6.7 G (200 INHALATIONS) INH SCH ×5 (00:42→23:36)
[2020-05-31] MEDS: Propofol 1,000 MG/100 ML VIAL IV PRN ×3 (03:30→22:35)
[2020-05-31 05:03] LABS: Band 22 % (5-11); Hemoglobin 8.6 g/dL (12.0-16.0); Lymphocytes 8 % (21-51); MDiff Complete? YES; Mean Corpuscular HGB CONC 33.1 g/dL (32.0-36.0); Mean Corpuscular Hemoglobin 30.3 pg (27.0-31.0); Mean Corpuscular Volume 91.5 fL (78.0-98.0); Mean Platelet Volume 9.5 fL (7.4-10.4); Monocytes 1 % (0-10); Neutrophil 69 % (42-75); Platelet Count 119 thou/uL (130-400); Platelet Morphology Comment Appears Decreased; RBC Distribution Width 15.3 % (11.5-14.5); Red Blood Cell (RBC) Count 2.84 mill/uL (4.20-5.40); White Blood Cell (WBC) Count 6.9 thou/uL (4.8-10.8)
[2020-05-31 05:18] LABS: Anion Gap 11 mmol/L (10-20); BUN (Urea Nitrogen) 17 mg/dL (9.8-20.1); Calc. Creatinine Clearance 123 mL/min (70-130); Calcium 7.6 mg/dL (7.8-10.44); Carbon Dioxide 28 mmol/L (23-31); Chloride 96 mmol/L (98-107); Estimated GFR-MDRD Greater than 90; Glucose 182 mg/dL (80-115); Potassium 4.3 mmol/L (3.5-5.1); Sodium 131 mmol/L (136-145)
--- NOTE | 2020-05-31 07:50 | RAD ---
Chest AP view INDICATION: History of intubation COMPARISON: May 30, 2020 FINDINGS: Lungs: Bilateral airspace disease persists Cardiac silhouette: Moderate cardiomegaly is stable Pulmonary vasculature: Pulmonary vascular congestion persists Pleural spaces: Left-sided thoracostomy tube is unchanged. There is a persistent small left apical p neumothorax Upper abdomen: Calcific density of the left upper quadrant abdomen is stable. Osseous structures: No acute osseous abnormality. Additional findings: Tracheostomy tube is unchanged. IMPRESSION: Stable exam. Stable left-sided pneumothorax
[2020-05-31 08:36] LABS: Actual Bicarbonate (HCO3a) 27.3 mEq/L (22-28); Base Excess (BEa) 0.8 mEq/L (-2.0 to +3.0); Calcium, Ionized (arterial) 1.11 mmol/L (1.12-1.30); Carboxyhemoglobin (COHb) 0.7 gm% (0.0-3.0); Hemoglobin (Hb) 10.3 g/dL (12.0-16.0); Potassium - ABG Lab 4.31 mmol/L (3.70-5.30); pH, Arterial 7.33 (7.35-7.45)
[2020-05-31] MEDS: Mometasone 200 MCG/Formoterol 5 MCG 120 PUFF INHALER INH SCH ×2 (08:41→19:12)
[2020-05-31 08:46] LABS: O2 Tension (PaO2), arterial 57.7 mmHg (> 80.0); Puncture Site RRA
[2020-05-31] MEDS: Amlodipine 10 MG TAB PO SCH (09:30)
[2020-05-31] MEDS: Enoxaparin Sodium 80 MG/0.8 ML SYRINGE SC SCH ×2 (09:30→21:43)
[2020-05-31] MEDS: hydrALAZINE 25 MG TAB PO SCH ×3 (09:30→21:40)
[2020-05-31] MEDS: cloNIDine 0.1 MG TAB PO SCH ×2 (09:30→21:41)
[2020-05-31] MEDS: risperiDONE 1 MG TAB PO SCH ×2 (09:30→21:40)
[2020-05-31] MEDS: Labetalol 100 MG TAB PO SCH ×3 (09:30→21:41)
[2020-05-31] MEDS: Lisinopril 20 MG TAB PO SCH (09:30)
[2020-05-31] MEDS: Polyethylene Glycol 3350 17 GM Packet PER TUBE SCH (09:30)
[2020-05-31] MEDS: Carvedilol 25 MG TAB PO SCH ×2 (09:30→17:55)
[2020-05-31] MEDS: Aspirin 81 mg Enteric Coated Tablet PO SCH (09:30)
[2020-05-31] MEDS: Famotidine 20 MG TAB PER TUBE SCH ×2 (09:30→21:41)
[2020-05-31] MEDS: methylPREDNISolone Sod Succ 40 MG VIAL IVP SCH ×2 (09:30→21:44)
--- NOTE | 2020-05-31 10:46 | PRG ---
DATE OF SERVICE: 05/31/2020 SUBJECTIVE: Bhakti Watts is a 64-year-old female, status post trach and PEG. OBJECTIVE: VITAL SIGNS: Temperature 97, sats are but she is on 70% and PEEP of 10, blood pressure 159/62. CHEST: Rhonchi and crackles. CARDIAC: Normal S1, S2. No gallops. ABDOMEN: Soft. I's and O's even. White count 6000, H and H of 8 and 26, platelet count 119. PO2 is 57, pCO2 is 53, pH is 7.33, as noted on PEEP of 10, pressure support of 15, rate of 18. Sodium 131. Lytes are normal. Calcium 7.6. X-ray still shows bilateral infiltrates. IMPRESSION: 1. Respiratory failure, farooq positive pneumonia. 2. Status post trach and PEG. 3. Status post left chest tube for pneumothorax. PLAN: She is still on high FiO2, high PEEP. Multiple blood pressure medication. Clearly not weanable at this stage. Try and decrease FiO2 if possible. If she ever stabilizes, she is probably going to require LTAC placement. One-half hour of critical care time. Job ID: [id number]
[2020-05-31] MEDS: Cefepime 2 GM in Sodium Chloride 0.9% 100 ML IVPB SCH ×2 (10:53→21:42)
[2020-05-31] MEDS: HumaLOG 300 UNITS/3 ML VIAL SC PRN ×2 (11:25→17:34)
[2020-05-31] MEDS: Insulin Glargine 30 UNITS in Pre-Filled Syringe 1 EACH SC SCH ×2 (11:25→21:45)
[2020-05-31] MEDS: Sodium Chloride 0.9% 1,000 ML IV SCH (17:38)
[2020-05-31] MEDS: Atorvastatin Calcium 10 MG TAB PO SCH (21:41)
[2020-06-01] MEDS: Sodium Chloride 0.9% 1,000 ML IV SCH (01:54)
[2020-06-01 04:59] LABS: Band 10 % (5-11); Hemoglobin 8.5 g/dL (12.0-16.0); Hypochromia SLIGHT = 6-15 cells (100X) (0-5/hpf); Lymphocytes 3 % (21-51); MDiff Complete? YES; Mean Corpuscular HGB CONC 33.5 g/dL (32.0-36.0); Mean Corpuscular Hemoglobin 31.3 pg (27.0-31.0); Mean Corpuscular Volume 93.4 fL (78.0-98.0); Mean Platelet Volume 9.8 fL (7.4-10.4); Monocytes 3 % (0-10); Neutrophil 84 % (42-75); Platelet Count 119 thou/uL (130-400); Platelet Morphology Comment Appears Decreased; RBC Distribution Width 15.3 % (11.5-14.5); White Blood Cell (WBC) Count 5.7 thou/uL (4.8-10.8)
[2020-06-01 05:04] LABS: Anion Gap 10 mmol/L (10-20); BUN (Urea Nitrogen) 24 mg/dL (9.8-20.1); Calc. Creatinine Clearance 108 mL/min (70-130); Carbon Dioxide 29 mmol/L (23-31); Chloride 98 mmol/L (98-107); Estimated GFR-MDRD Greater than 90; Glucose 254 mg/dL (80-115); Potassium 4.8 mmol/L (3.5-5.1); Sodium 132 mmol/L (136-145)
[2020-06-01] MEDS: HumaLOG 300 UNITS/3 ML VIAL SC PRN ×3 (05:42→22:22)
[2020-06-01] MEDS: PROVENTIL INHALER 6.7 G (200 INHALATIONS) INH SCH ×4 (07:56→23:14)
[2020-06-01] MEDS: Mometasone 200 MCG/Formoterol 5 MCG 120 PUFF INHALER INH SCH ×2 (07:56→19:33)
[2020-06-01] MEDS: Carvedilol 25 MG TAB PO SCH ×2 (08:05→18:20)
--- NOTE | 2020-06-01 08:48 | RAD ---
PORTABLE CHEST: Date: 06/01/2020 HISTORY: CCU follow-up. Ventilator follow-up. COMPARISON: 05/31/2020. FINDINGS: Left chest tube. Evidence of a small left pneumothorax which appears unchanged. Left subcutaneous emp hysema. Bilateral diffuse infiltrates seen in both lungs appear stable. Tracheostomy device noted. IMPRESSION: Stable chest findings. POS: AGW
[2020-06-01] MEDS: Enoxaparin Sodium 80 MG/0.8 ML SYRINGE SC SCH ×2 (09:33→21:24)
[2020-06-01] MEDS: methylPREDNISolone Sod Succ 40 MG VIAL IVP SCH ×2 (09:34→21:23)
[2020-06-01] MEDS: Lisinopril 20 MG TAB PO SCH (09:36)
[2020-06-01] MEDS: cloNIDine 0.1 MG TAB PO SCH ×2 (09:37→21:23)
[2020-06-01] MEDS: Aspirin 81 mg Enteric Coated Tablet PO SCH (09:37)
[2020-06-01] MEDS: Famotidine 20 MG TAB PER TUBE SCH ×2 (09:37→21:22)
[2020-06-01] MEDS: risperiDONE 1 MG TAB PO SCH ×2 (09:37→21:23)
[2020-06-01] MEDS: Labetalol 100 MG TAB PO SCH ×3 (09:37→21:22)
[2020-06-01] MEDS: Amlodipine 10 MG TAB PO SCH (09:37)
[2020-06-01] MEDS: hydrALAZINE 25 MG TAB PO SCH ×3 (09:38→21:23)
[2020-06-01] MEDS: Insulin Glargine 30 UNITS in Pre-Filled Syringe 1 EACH SC SCH ×2 (09:40→21:25)
[2020-06-01] MEDS: Cefepime 2 GM in Sodium Chloride 0.9% 100 ML IVPB SCH ×2 (09:41→21:24)
[2020-06-01] MEDS: Polyethylene Glycol 3350 17 GM Packet PER TUBE SCH ×2 (09:44)
--- NOTE | 2020-06-01 10:53 | PRG ---
DATE OF SERVICE: 06/01/2020 SUBJECTIVE: Bhakti Watts is a 64-year-old female, farooq positive pneumonia spontaneous pneumothorax. Chest tube in place, day 25 in the ICU. Still remains very encephalopathic. OBJECTIVE: VITAL SIGNS: Temperature 97, blood pressure 149/52, saturations 90%, respirations 18. CHEST: Rhonchi and crackles. CARDIAC: Normal S1, S2. No gallops. ABDOMEN: No masses. LABORATORY DATA: Platelet count is slightly low, but otherwise unremarkable. CBC, lytes are normal. Sodium 132, glucose 237. IMPRESSION AND PLAN: Respiratory failure, farooq positive pneumonia, hypertension, encephalopathy, mild thrombocytopenia, diabetes. Advised nurses to currently decrease the sedation if possible. Try to see if we can eventually get an LTAC placement if she remains stable to be transferred. Need to discuss with son. One-half hour critical care time. Job ID: [id number]
--- NOTE | 2020-06-01 18:07 | PDOC.HOSPP ---
- Subjective Encounter Date: 06/01/20 Encounter Time: 17:40 Subjective: f/u for COVID PNA/Resp failure on mech vent and s/p Trach/PEG. Remains on FIO2 65% and receiving TF's. - Objective Vital Signs & Weight: Vital Signs (12 hours) Temp Pulse Pulse Pulse Resp BP BP 06/01/20 15:00 59 L 56 L 154/62 H 06/01/20 14:51 62 145/61 H 06/01/20 14:24 56 L 145/61 H 06/01/20 14:23 58 L 145/61 H 06/01/20 14:00 31 H 06/01/20 13:32 58 L 138/56 L 06/01/20 12:00 97.7 F 31 H 06/01/20 11:23 64 167/62 H 06/01/20 10:00 29 H 06/01/20 09:38 70 147/57 H 06/01/20 09:37 70 147/57 H 06/01/20 09:36 164/58 H 06/01/20 08:00 97.5 F L 28 H 06/01/20 07:53 70 147/57 H BP Pulse Ox Pulse Ox Pulse Ox 06/01/20 15:00 142/61 H 95 95 06/01/20 14:51 06/01/20 14:24 06/01/20 14:23 06/01/20 14:00 06/01/20 13:32 06/01/20 12:00 06/01/20 11:23 06/01/20 10:00 06/01/20 09:38 06/01/20 09:37 06/01/20 09:36 06/01/20 08:00 90 L 06/01/20 07:53 Weight Admit Weight 156 lb Weight 153 lb 14.122 oz Most Recent Monitor Data Heart Rate from ECG 59 NIBP 154/62 NIBP BP-Mean 92 Respiration from ECG 29 SpO2 95 I&O: 05/31/20 06/01/20 06/02/20 06:59 06:59 06:59 Intake Total 4192 8340 260 Output Total 3361 1190 430 Balance 611 9152 -094 Result Diagrams: 06/01/20 04:00 06/01/20 04:00 Additional Labs: Accuchecks 06/01/20 06/01/2006/01/20 17:56 11:34 04:29 POC Glucose 262 H 195 H 237 H 05/31/20 05/31/20 21:59 17:28 POC Glucose 218 H 224 H Microbiology 05/07/20 08:17 Venous blood - Right Hand Blood Culture - Final NO GROWTH IN 5 DAYS 05/07/20 08:01 Venous blood - Left Arm Blood Culture - Final NO GROWTH IN 5 DAYS Laboratory Tests 05/24/20 05/26/20 05/27/20 13:31 03:30 03:09 Hgb 8.8 L 7.5 L Plt Count 96 L Band Neuts % (Manual) 16 H 33 H SARS-CoV-2 (PCR) DETECTED A* 05/28/20 05/29/20 04:15 04:12 Hgb 8.1 L Plt Count Band Neuts % (Manual) 9 13 H SARS-CoV-2 (PCR) Radiology Reviewed by me: Yes (PCXR - trach in place, L chest tube in position, bilat infiltrates) EKG Reviewed by me: Yes (Tele - SR) Hospitalist ROS - Medication Medications: Active Medications Generic Name Dose Route Start Last Admin Trade Name Freq PRN Reason Stop Dose Admin Acetaminophen 650 mg 05/07/20 19:41 05/24/20 03:46 Acetaminophen 325 Mg Tab PO 650 mg Q4H PRN Administration Headache/Fever or Pain Albuterol Sulfate 2 puff 05/07/20 19:00 06/01/20 13:33 Proventil Inhaler 6.7 G (200 Inhalations) INH 2 puff [id number] [place] Administration Amlodipine Besylate 10 mg 05/14/20 09:00 06/01/20 09:37 Amlodipine 10 Mg Tab PO 10 mg DAILY [place] Administration Aspirin 81 mg 05/09/20 09:00 06/01/20 09:37 Aspirin 81 Mg Enteric Coated Tablet PO 81 mg DAILY [place] Administration Atorvastatin Calcium 10 mg 05/08/20 21:00 05/31/20 21:41 Atorvastatin Calcium 10 Mg Tab PO 10 mg HS [place] Administration Bisacodyl 10 mg 05/19/20 09:55 05/19/20 11:46 Bisacodyl 10 Mg Supp MO 10 mg DAILYPRN PRN Administration Constipation Carvedilol 25 mg 05/25/20 17:00 06/01/20 08:05 Carvedilol 25 Mg Tab PO 25 mg BID-WM [place] Administration Clonidine 0.1 mg 05/30/20 21:00 06/01/20 09:37 Clonidine 0.1 Mg Tab PO 0.1 mg BID [place] Administration Dextrose/Water 25 gm 05/07/20 20:06 05/29/20 16:49 Dextrose 50% Abboject 50 Ml Syringe SLOW IVP 25 gm PRN PRN Administration Hypoglycemia Enoxaparin Sodium 70 mg 05/29/20 21:00 06/01/20 09:33 Enoxaparin Sodium 80 Mg/0.8 Ml Syringe SC 70 mg 09,2100 [place] Administration Famotidine 20 mg 05/18/20 09:00 06/01/20 09:37 Famotidine 20 Mg Tab PER TUBE 20 mg BID [place] Administration Hydralazine HCl 50 mg 05/30/20 09:19 06/01/20 14:23 Hydralazine 25 Mg Tab PO 50 mg TID [place] Administration Dextrose/Water 1,000 mls @ 0 mls/hr 05/07/20 20:06 05/29/20 22:46 D5w IV 1,000 mls .Q0M PRN Administration Hypoglycemia As Directed Cefepime HCl 2 gm/ Sodium 100 mls @ 200 mls/hr 05/26/20 09:00 06/01/20 09:41 Chloride IVPB 100 mls Q12HR [place] Administration Fentanyl Citrate 2,000 mcg/ 100 mls @ 0 mls/hr 05/30/20 09:15 05/30/20 09:58 Sodium Chloride IV 100 mls INF [place] Administration Protocol Per Protocol Sodium Chloride 1,000 mls @ 50 mls/hr 05/30/20 19:00 06/01/20 01:54 Normal Saline 0.9% IV 1,000 mls .Q20H [place] Administration Insulin Glargine 30 units/ 0.3 mls @ 0 mls/hr 05/31/20 09:00 06/01/20 09:40 Miscellaneous Medication SC 0.3 mls BID [place] Administration Insulin Human Lispro 0 units 05/07/20 20:06 05/23/20 08:55 Humalog 300 Units/3 Ml Vial SC 6 unit .BEDTIME SLIDING SC PRN Administration Bedtime Correctional Scale Insulin Human Lispro 0 units 05/18/20 17:45 06/01/20 05:42 Humalog 300 Units/3 Ml Vial SC 6 unit .AGGRESSIVE SLIDING PRN Administration AGGRESSIVE SLIDING SCALE Protocol Labetalol HCl 10 mg 05/07/20 10:55 05/30/20 05:30 Labetalol Hcl 100 Mg/20 Ml Vial SLOW IVP 10 mg Q4H PRN Administration SBP Greater Than 180 Labetalol HCl 100 mg 05/28/20 15:00 06/01/20 14:24 Labetalol 100 Mg Tab PO Not Given TID [place] Lisinopril 20 mg 05/24/20 09:00 06/01/20 09:36 Lisinopril 20 Mg Tab PO 20 mg DAILY [place] Administration Methylprednisolone Sodium Succinate 40 mg 05/25/20 21:00 06/01/20 09:34 Methylprednisolone Sod Succ 40 Mg Vial IVP 40 mg BID [place] Administration Mometasone Furoate/Formoterol Fumar 2 puff 05/07/20 18:30 06/01/20 07:56 Mometasone 200 Mcg/Formoterol 5 Mcg 120 Puff Inhaler INH 2 puff BID-RT [place] Administration Polyethylene Glycol 17 gm 05/20/20 09:00 06/01/20 09:44 Polyethylene Glycol 3350 17 Gm Packet PER TUBE Not Given DAILY [place] Propofol 1,000 mg 05/09/20 07:30 05/31/20 22:35 Propofol 1,000 Mg/100 Ml Vial IV 06/08/20 07:30 1,000 mg INF PRN Administration TO ACHIEVE GOAL RASS Protocol Risperidone 1 mg 05/22/20 09:00 06/01/20 09:37 Risperidone 1 Mg Tab PO 1 mg BID [place] Administration Sodium Chloride 10 ml 05/08/20 21:00 06/01/20 09:43 Flush - Normal Saline 10 Ml Syringe IVF 10 ml Q12HR [place] Administration - Exam General Appearance: ill appearing General - other findings: sedate on mech vent ENT: normocephalic atraumatic, no oropharyngeal lesions Neck: supple, symmetric, no JVD, no thyromegaly Neck - other findings: Trach in place Heart: RRR, no gallops, no rubs, normal peripheral pulses Heart - other findings: S1, S2 Respiratory: tachypneic Respiratory - other findings: diminished bilat, occ rhonchi Gastrointestinal: soft, non-tender, non-distended, normal bowel sounds, no palpable masses Extremities: no cyanosis, no clubbing, 1+ LE edema Skin: normal turgor Neurological - other findings: sedate on mech vent Musculoskeletal: generalized weakness Psychiatric: somnolent, lethargic Hosp A/P (1) Acute respiratory failure with hypoxia Code(s): J96.01 - ACUTE RESPIRATORY FAILURE WITH HYPOXIA Status: Acute Plan: Continue mech ventilation, slow wean as clinically tolerated (2) COVID-19 Code(s): U07.1 - COVID-19 Status: Acute Plan: Continue Cefepime/Lovenox/Solumedrol (3) Pneumothorax on left Code(s): J93.9 - PNEUMOTHORAX, UNSPECIFIED Status: Acute Plan: Continue CT drainage (4) Normocytic anemia Code(s): D64.9 - ANEMIA, UNSPECIFIED Status: Chronic (5) Diabetes mellitus Code(s): E11.9 - TYPE 2 DIABETES MELLITUS WITHOUT COMPLICATIONS Status: Chronic - Plan continue antibiotics, director social welfare, respiratory therapy, DVT proph w/SCDs Continue critical support s/p trach/PEG today Continue Solumedrol/Lovenox/Cefepime Continue Coreg 25mg BID LTAC options? Am lab: BMP, CBC, ABG PCXR in am
[2020-06-01] MEDS: Atorvastatin Calcium 10 MG TAB PO SCH (21:22)
[2020-06-02] MEDS: Sodium Chloride 0.9% 1,000 ML IV SCH ×2 (00:07→10:30)
[2020-06-02] MEDS: Propofol 1,000 MG/100 ML VIAL IV PRN (02:17)
[2020-06-02 04:49] LABS: Anion Gap 11 mmol/L (10-20); BUN (Urea Nitrogen) 26 mg/dL (9.8-20.1); Calc. Creatinine Clearance 113 mL/min (70-130); Carbon Dioxide 32 mmol/L (23-31); Chloride 99 mmol/L (98-107); Estimated GFR-MDRD Greater than 90; Glucose 206 mg/dL (80-115); Potassium 4.9 mmol/L (3.5-5.1); Sodium 137 mmol/L (136-145)
[2020-06-02] MEDS: HumaLOG 300 UNITS/3 ML VIAL SC PRN ×3 (05:23→16:57)
[2020-06-02 05:27] LABS: Band 25 % (5-11); Hemoglobin 8.5 g/dL (12.0-16.0); Lymphocytes 6 % (21-51); MDiff Complete? YES; Mean Corpuscular HGB CONC 32.9 g/dL (32.0-36.0); Mean Corpuscular Hemoglobin 30.8 pg (27.0-31.0); Mean Corpuscular Volume 93.7 fL (78.0-98.0); Mean Platelet Volume 9.5 fL (7.4-10.4); Monocytes 5 % (0-10); Myelocyte 3 % (0-0); Neutrophil 61 % (42-75); Platelet Count 145 thou/uL (130-400); RBC Distribution Width 15.3 % (11.5-14.5); Red Blood Cell (RBC) Count 2.77 mill/uL (4.20-5.40); White Blood Cell (WBC) Count 5.9 thou/uL (4.8-10.8)
[2020-06-02] MEDS: PROVENTIL INHALER 6.7 G (200 INHALATIONS) INH SCH ×3 (08:15→18:38)
[2020-06-02] MEDS: Mometasone 200 MCG/Formoterol 5 MCG 120 PUFF INHALER INH SCH ×2 (08:15→18:38)
[2020-06-02] MEDS: Cefepime 2 GM in Sodium Chloride 0.9% 100 ML IVPB SCH ×2 (09:23→20:36)
[2020-06-02] MEDS: Aspirin 81 mg Enteric Coated Tablet PO SCH (09:23)
[2020-06-02] MEDS: Lisinopril 20 MG TAB PO SCH (09:23)
[2020-06-02] MEDS: Enoxaparin Sodium 80 MG/0.8 ML SYRINGE SC SCH ×2 (09:23→20:37)
[2020-06-02] MEDS: Labetalol 100 MG TAB PO SCH ×3 (09:23→20:36)
[2020-06-02] MEDS: Famotidine 20 MG TAB PER TUBE SCH ×2 (09:23→20:36)
[2020-06-02] MEDS: risperiDONE 1 MG TAB PO SCH ×2 (09:24→20:37)
[2020-06-02] MEDS: cloNIDine 0.1 MG TAB PO SCH ×2 (09:24→20:36)
[2020-06-02] MEDS: Carvedilol 25 MG TAB PO SCH ×2 (09:24→16:53)
[2020-06-02] MEDS: hydrALAZINE 25 MG TAB PO SCH ×3 (09:24→20:37)
[2020-06-02] MEDS: Insulin Glargine 30 UNITS in Pre-Filled Syringe 1 EACH SC SCH ×2 (09:35→20:37)
--- NOTE | 2020-06-02 10:04 | PRG ---
DATE OF SERVICE: 06/02/2020 SUBJECTIVE: This morning, she remains intubated in the vent, sedated. OBJECTIVE: VITAL SIGNS: Pulse 66, blood pressure 161/86, saturations are 98%, PEEP of 10, respirations 18. I's and O's are positive. CHEST: Bilateral crackles. CARDIAC: Normal S1 and S2. No gallops. ABDOMEN: No masses. LABORATORY DATA: Unremarkable. Platelet count is normal. X-ray shows left-sided pneumothorax. Pneumomediastinum appears to be stable. IMPRESSION: [place] positive pneumonia, respiratory failure, left pneumothorax. PLAN: She has trach and PEG. She is not weanable unfortunately. She was re-swabbed again. She is still positive. Still agitated on the vent. She is on multiple medications for her blood pressure. We are going to continue steroids, supportive care. I have restarted antibiotics because of worsening pulmonary infiltrates. Prognosis remains poor. One-half hour of critical care time. Job ID: [id number]
[2020-06-02] MEDS: Amlodipine 10 MG TAB PO SCH (10:29)
[2020-06-02] MEDS: Polyethylene Glycol 3350 17 GM Packet PER TUBE SCH (10:29)
[2020-06-02] MEDS: methylPREDNISolone Sod Succ 40 MG VIAL IVP SCH ×2 (10:29→20:37)
[2020-06-02 12:50] VITALS: BMI 28.2
--- NOTE | 2020-06-02 18:13 | PDOC.HOSPP ---
- Subjective Encounter Date: 06/02/20 Encounter Time: 17:25 Subjective: f/u for COVID PNA on protracted mech vent s/p Trach/PEG receiving Cefepime/Lovenox/Solumedrol. - Objective Vital Signs & Weight: Vital Signs (12 hours) Temp Pulse Resp BP Pulse Ox 06/02/20 18:00 32 H 06/02/20 16:53 68 157/57 H 06/02/20 16:00 98.8 F 32 H 06/02/20 14:19 68 157/57 H 06/02/20 14:00 28 H 06/02/20 12:00 98.9 F 35 H 06/02/20 10:35 65 159/66 H 06/02/20 10:29 66 146/66 H 06/02/20 10:00 32 H 06/02/20 09:24 66 146/66 H 06/02/20 09:23 66 146/66 H 06/02/20 08:16 66 161/86 H 06/02/20 08:00 100 06/02/20 07:41 31 H 06/02/20 07:00 98.8 F Weight Admit Weight 156 lb Weight 154 lb 5.177 oz Most Recent Monitor Data Heart Rate from ECG 70 NIBP 149/56 NIBP BP-Mean 87 Respiration from ECG 33 SpO2 93 I&O: 06/01/20 06/02/20 06/03/20 06:59 06:59 06:59 Intake Total 3704 3826 1733 Output Total 1190 1800 670 Balance 2514 2026 1063 Result Diagrams: 06/02/20 04:10 06/02/20 04:10 Additional Labs: Accuchecks 06/02/20 06/02/20 06/01/20 16:56 10:20 21:42 POC Glucose 210 H 175 H 218 H Microbiology 05/07/20 08:17 Venous blood - Right Hand Blood Culture - Final NO GROWTH IN 5 DAYS 05/07/20 08:01 Venous blood - Left Arm Blood Culture - Final NO GROWTH IN 5 DAYS Laboratory Tests 05/24/20 05/26/20 05/27/20 13:31 03:30 03:09 Hgb 8.8 L 7.5 L Plt Count 96 L Band Neuts % (Manual) 16 H 33 H SARS-CoV-2 (PCR) DETECTED A* 05/28/20 05/29/20 04:15 04:12 Hgb 8.1 L Plt Count Band Neuts % (Manual) 9 13 H SARS-CoV-2 (PCR) Radiology Reviewed by me: Yes (PCXR - diffuse bilat infiltrates, L chest tube) EKG Reviewed by me: Yes (Tele - SR) Hospitalist ROS - Medication Medications: Active Medications Generic Name Dose Route Start Last Admin Trade Name Freq PRN Reason Stop Dose Admin Acetaminophen 650 mg 05/07/20 19:41 05/24/20 03:46 Acetaminophen 325 Mg Tab PO 650 mg Q4H PRN Administration Headache/Fever or Pain Albuterol Sulfate 2 puff 05/07/20 19:00 06/02/20 14:18 Proventil Inhaler 6.7 G (200 Inhalations) INH 2 puff [id number] [place] Administration Amlodipine Besylate 10 mg 05/14/20 09:00 06/02/20 10:29 Amlodipine 10 Mg Tab PO 10 mg DAILY [place] Administration Aspirin 81 mg 05/09/20 09:00 06/02/20 09:23 Aspirin 81 Mg Enteric Coated Tablet PO 81 mg DAILY [place] Administration Atorvastatin Calcium 10 mg 05/08/20 21:00 06/01/20 21:22 Atorvastatin Calcium 10 Mg Tab PO 10 mg HS [place] Administration Bisacodyl 10 mg 05/19/20 09:55 05/19/20 11:46 Bisacodyl 10 Mg Supp [place] 10 mg DAILYPRN PRN Administration Constipation Carvedilol 25 mg 05/25/20 17:00 06/02/20 16:53 Carvedilol 25 Mg Tab PO 25 mg BID-WM [place] Administration Clonidine 0.1 mg 05/30/20 21:00 06/02/20 09:24 Clonidine 0.1 Mg Tab PO 0.1 mg BID [place] Administration Dextrose/Water 25 gm 05/07/20 20:06 05/29/20 16:49 Dextrose 50% Abboject 50 Ml Syringe SLOW IVP 25 gm PRN PRN Administration Hypoglycemia Enoxaparin Sodium 70 mg 05/29/20 21:00 06/02/20 09:23 Enoxaparin Sodium 80 Mg/0.8 Ml Syringe SC 70 mg 0900,2100 [place] Administration Famotidine 20 mg 05/18/20 09:00 06/02/20 09:23 Famotidine 20 Mg Tab PER TUBE 20 mg BID [place] Administration Hydralazine HCl 50 mg 05/30/20 09:19 06/02/20 16:53 Hydralazine 25 Mg Tab PO 50 mg TID [place] Administration Dextrose/Water 1,000 mls @ 0 mls/hr 05/07/20 20:06 05/29/20 22:46 D5w IV 1,000 mls .Q0M PRN Administration Hypoglycemia As Directed Cefepime HCl 2 gm/ Sodium 100 mls @ 200 mls/hr 05/26/20 09:00 06/02/20 09:23 Chloride IVPB 100 mls Q12HR [place] Administration Fentanyl Citrate 2,000 mcg/ 100 mls @ 0 mls/hr 05/30/20 09:15 05/30/20 09:58 Sodium Chloride IV 100 mls INF [place] Administration Protocol Per Protocol Sodium Chloride 1,000 mls @ 50 mls/hr 05/30/20 19:00 06/02/20 10:30 Normal Saline 0.9% IV 1,000 mls .Q20H [place] Administration Insulin Glargine 30 units/ 0.3 mls @ 0 mls/hr 05/31/20 09:00 06/02/20 09:35 Miscellaneous Medication SC 0.3 mls BID [place] Administration Insulin Human Lispro 0 units 05/07/20 20:06 06/02/20 16:57 Humalog 300 Units/3 Ml Vial SC 6 unit .BEDTIME SLIDING SC PRN Administration Bedtime Correctional Scale Insulin Human Lispro 0 units 05/18/20 17:45 06/02/20 05:23 Humalog 300 Units/3 Ml Vial SC 6 unit .AGGRESSIVE SLIDING PRN Administration AGGRESSIVE SLIDING SCALE Protocol Labetalol HCl 10 mg 05/07/20 10:55 05/30/20 05:30 Labetalol Hcl 100 Mg/20 Ml Vial SLOW IVP 10 mg Q4H PRN Administration SBP Greater Than 180 Labetalol HCl 100 mg 05/28/20 15:00 06/02/20 16:53 Labetalol 100 Mg Tab PO 100 mg TID [place] Administration Lisinopril 20 mg 05/24/20 09:00 06/02/20 09:23 Lisinopril 20 Mg Tab PO 20 mg DAILY [place] Administration Methylprednisolone Sodium Succinate 40 mg 05/25/20 21:00 06/02/20 10:29 Methylprednisolone Sod Succ 40 Mg Vial IVP 40 mg BID [place] Administration Mometasone Furoate/Formoterol Fumar 2 puff 05/07/20 18:30 06/02/20 08:15 Mometasone 200 Mcg/Formoterol 5 Mcg 120 Puff Inhaler INH 2 puff BID-RT [place] Administration Polyethylene Glycol 17 gm 05/20/20 09:00 06/02/20 10:29 Polyethylene Glycol 3350 17 Gm Packet PER TUBE Not Given DAILY [place] Propofol 1,000 mg 05/09/20 07:30 06/02/20 02:17 Propofol 1,000 Mg/100 Ml Vial IV 06/08/20 07:30 1,000 mg INF PRN Administration TO ACHIEVE GOAL RASS Protocol Risperidone 1 mg 05/22/20 09:00 06/02/20 09:24 Risperidone 1 Mg Tab PO 1 mg BID [place] Administration Sodium Chloride 10 ml 05/08/20 21:00 06/02/20 10:25 Flush - Normal Saline 10 Ml Syringe IVF 10 ml Q12HR [place] Administration - Exam General Appearance: ill appearing General - other findings: sedate on mech vent Neck: supple, symmetric, no JVD, no thyromegaly Neck - other findings: trach in place, subq emphysema on neck/shoulder Heart: RRR, no gallops, no rubs, normal peripheral pulses Heart - other findings: S1, S2 Respiratory: rhonchi, tachypneic Respiratory - other findings: diminished bilat, coarse Gastrointestinal: non-tender, non-distended, normal bowel sounds, no palpable masses Gastrointestinal - other findings: firm Extremities: 2+ LE edema Skin: normal turgor Neurological - other findings: sedate on mech vent Psychiatric: somnolent, lethargic Hosp A/P (1) Acute respiratory failure with hypoxia Code(s): J96.01 - ACUTE RESPIRATORY FAILURE WITH HYPOXIA Status: Acute Plan: continue maximal mech support, poor prognosis given clinical exam and length of requirement on mech vent (2) COVID-19 Code(s): U07.1 - COVID-19 Status: Acute Plan: Continue Cefepime/Lovenox/Solumedrol/mech vent (3) Pneumothorax on left Code(s): J93.9 - PNEUMOTHORAX, UNSPECIFIED Status: Acute (4) Normocytic anemia Code(s): D64.9 - ANEMIA, UNSPECIFIED Status: Chronic (5) Diabetes mellitus Code(s): E11.9 - TYPE 2 DIABETES MELLITUS WITHOUT COMPLICATIONS Status: Chronic - Plan continue antibiotics, social work associate, respiratory therapy, DVT proph w/SCDs Continue critical support s/p trach/PEG Continue Solumedrol/Lovenox/Cefepime Continue Coreg 25mg BID LTAC options? Am lab: BMP, CBC, ABG PCXR in am Poor prognosis, doubt that this is a survivable event
[2020-06-02] MEDS: Atorvastatin Calcium 10 MG TAB PO SCH (20:37)
[2020-06-03] MEDS: PROVENTIL INHALER 6.7 G (200 INHALATIONS) INH SCH ×5 (00:35→23:35)
[2020-06-03 04:55] LABS: Band 43 % (5-11); Hemoglobin 8.1 g/dL (12.0-16.0); Lymphocytes 9 % (21-51); MDiff Complete? YES; Mean Corpuscular HGB CONC 33.2 g/dL (32.0-36.0); Mean Corpuscular Hemoglobin 31.6 pg (27.0-31.0); Mean Corpuscular Volume 95.2 fL (78.0-98.0); Mean Platelet Volume 9.6 fL (7.4-10.4); Metamyelocyte 4 % (0-0); Monocytes 6 % (0-10); Neutrophil 38 % (42-75); Platelet Count 156 thou/uL (130-400); RBC Distribution Width 15.6 % (11.5-14.5); Red Blood Cell (RBC) Count 2.57 mill/uL (4.20-5.40); White Blood Cell (WBC) Count 8.1 thou/uL (4.8-10.8)
[2020-06-03 05:04] LABS: Anion Gap 10 mmol/L (10-20); BUN (Urea Nitrogen) 29 mg/dL (9.8-20.1); Calc. Creatinine Clearance 122 mL/min (70-130); Calcium 7.8 mg/dL (7.8-10.44); Carbon Dioxide 34 mmol/L (23-31); Chloride 104 mmol/L (98-107); Estimated GFR-MDRD Greater than 90; Glucose 102 mg/dL (80-115); Potassium 4.7 mmol/L (3.5-5.1); Sodium 143 mmol/L (136-145)
[2020-06-03] MEDS: Mometasone 200 MCG/Formoterol 5 MCG 120 PUFF INHALER INH SCH ×2 (08:06→19:12)
[2020-06-03] MEDS: Polyethylene Glycol 3350 17 GM Packet PER TUBE SCH (08:48)
[2020-06-03] MEDS: Sodium Chloride 0.9% 1,000 ML IV SCH (08:48)
[2020-06-03] MEDS: Carvedilol 25 MG TAB PO SCH ×2 (08:49→16:25)
[2020-06-03] MEDS: cloNIDine 0.1 MG TAB PO SCH ×2 (08:49→23:52)
[2020-06-03] MEDS: Labetalol 100 MG TAB PO SCH ×3 (08:49→23:52)
[2020-06-03] MEDS: Amlodipine 10 MG TAB PO SCH (08:49)
[2020-06-03] MEDS: Aspirin 81 mg Enteric Coated Tablet PO SCH (08:49)
[2020-06-03] MEDS: Enoxaparin Sodium 80 MG/0.8 ML SYRINGE SC SCH ×2 (08:50→20:17)
[2020-06-03] MEDS: risperiDONE 1 MG TAB PO SCH ×2 (08:50→20:17)
[2020-06-03] MEDS: Famotidine 20 MG TAB PER TUBE SCH ×2 (08:50→20:16)
[2020-06-03] MEDS: hydrALAZINE 25 MG TAB PO SCH ×3 (08:50→23:52)
[2020-06-03] MEDS: methylPREDNISolone Sod Succ 40 MG VIAL IVP SCH ×2 (08:51→20:18)
[2020-06-03] MEDS: Cefepime 2 GM in Sodium Chloride 0.9% 100 ML IVPB SCH ×2 (08:51→20:15)
[2020-06-03] MEDS: Lisinopril 20 MG TAB PO SCH (08:51)
--- NOTE | 2020-06-03 09:12 | RAD ---
EXAM: Chest one view: HISTORY: Respiratory insufficiency COMPARISON: 06/01/2020 FINDINGS: Tracheostomy tube and left chest tubes in place. Heart size: Within normal limits. Lungs: Extensive bilateral alveolar and interstitial and groundglass opacity changes throughout both lungs. Small left-sided pneumothorax with some extensive subcutaneous emphysema showing some worsening mony red to the prior study. Given the right-sided subcutaneous emphysema it would be difficult to absolutely exclude the possibility of a tiny right-sided pneumothorax in the apex region. Evidence fo r small right pleural effusion. IMPRESSION: Extensive bilateral pneumonia with probable small right pleural effusion. Small persistent left-sided pneumothorax with extensive subcutaneous emphysema and left chest tube in place. Continued short-term follow-up.
[2020-06-03] MEDS: Insulin Glargine 30 UNITS in Pre-Filled Syringe 1 EACH SC SCH ×3 (09:30→20:18)
[2020-06-03] MEDS: Dextrose 5% in Water 1,000 ML IV PRN (09:56)
[2020-06-03] MEDS: Dextrose 5 % And 0.9 % NaCl 1,000 ML IV SCH (09:59)
--- NOTE | 2020-06-03 12:09 | PRG ---
DATE OF SERVICE: 06/03/2020 SUBJECTIVE: Bhakti Watts remains clinically unchanged. OBJECTIVE: VITAL SIGNS: Heart rates in the 60, blood pressure 146/59. She is still on high-flow O2 and still tachypneic and still has lung compliance issues. LUNGS: Clear. HEART: Regular rhythm. ABDOMEN: Soft. EXTREMITIES: Unchanged. LABORATORY DATA: White count 8.1, hemoglobin 8.1, platelets 156. Sodium 143, potassium 4.7, chloride 104, bicarb 34, BUN 29, creatinine 0.5. IMPRESSION: COVID pneumonia, now mechanically ventilated in the hospital for 27 days. If an LTAC can be located that would accept her, an LTAC transfer would not be inappropriate. Her chances for survival are extremely small and long-term. Job ID: [id number] [facility]
[2020-06-03] MEDS: Dextrose 50% Abboject 50 ML SYRINGE SLOW IVP PRN ×2 (16:25→20:14)
--- NOTE | 2020-06-03 16:59 | PDOC.HOSPP ---
- Subjective Encounter Date: 06/03/20 Encounter Time: 16:57 Subjective: Ms. Watts was seen today in follow-up of COVID pneumonia and respiratory failure. She is intubated, and she has had minimal response to verbal and tactile stimuli. - Objective Vital Signs & Weight: Vital Signs (12 hours) Temp Pulse Resp BP Pulse Ox 06/03/20 16:25 70 141/59 H 06/03/20 16:00 32 H 06/03/20 14:00 33 H 06/03/20 13:24 70 141/59 H 06/03/20 12:00 98.8 F 32 H 06/03/20 10:36 69 146/59 H 06/03/20 10:00 31 H 06/03/20 08:51 153/63 H 06/03/20 08:50 66 153/63 H 06/03/20 08:49 66 153/63 H 06/03/20 08:04 66 153/63 H 06/03/20 08:00 30 H 95 06/03/20 07:00 97.8 F 06/03/20 06:00 33 H Weight Admit Weight 156 lb Weight 156 lb 8.451 oz Most Recent Monitor Data Heart Rate from ECG 71 NIBP 145/57 NIBP BP-Mean 86 Respiration from ECG 28 SpO2 95 I&O: 06/02/20 06/03/20 06/04/20 06:59 06:59 06:59 Intake Total 3826 2728 340 Output Total 1800 1200 500 Balance 2026 1528 -160 Result Diagrams: 06/03/20 04:15 06/03/20 04:15 Additional Labs: Accuchecks 06/03/20 06/03/20 06/02/20 16:02 10:24 21:48 POC Glucose 63 L 67 L 155 H 06/02/20 16:56 POC Glucose 210 H Hospitalist ROS - Medication Medications: Active Medications Generic Name Dose Route Start Last Admin Trade Name Freq PRN Reason Stop Dose Admin Acetaminophen 650 mg 05/07/20 19:41 05/24/20 03:46 Acetaminophen 325 Mg Tab PO 650 mg Q4H PRN Administration Headache/Fever or Pain Albuterol Sulfate 2 puff 05/07/20 19:00 06/03/20 13:26 Proventil Inhaler 6.7 G (200 Inhalations) INH 2 puff [id number] [place] Administration Amlodipine Besylate 10 mg 05/14/20 09:00 06/03/20 08:49 Amlodipine 10 Mg Tab PO 10 mg DAILY [place] Administration Aspirin 81 mg 05/09/20 09:00 06/03/20 08:49 Aspirin 81 Mg Enteric Coated Tablet PO 81 mg DAILY [place] Administration Atorvastatin Calcium 10 mg 05/08/20 21:00 06/02/20 20:37 Atorvastatin Calcium 10 Mg Tab PO 10 mg HS [place] Administration Bisacodyl 10 mg 05/19/20 09:55 05/19/20 11:46 Bisacodyl 10 Mg Supp [place] 10 mg DAILYPRN PRN Administration Constipation Carvedilol 25 mg 05/25/20 17:00 06/03/20 16:25 Carvedilol 25 Mg Tab PO 25 mg BID-WM [place] Administration Clonidine 0.1 mg 05/30/20 21:00 06/03/20 08:49 Clonidine 0.1 Mg Tab PO 0.1 mg BID [place] Administration Dextrose/Water 25 gm 05/07/20 20:06 06/03/20 16:25 Dextrose 50% Abboject 50 Ml Syringe SLOW IVP 12.5 gm PRN PRN Administration Hypoglycemia Enoxaparin Sodium 70 mg 05/29/20 21:00 06/03/20 08:50 Enoxaparin Sodium 80 Mg/0.8 Ml Syringe SC 70 mg 09,2100 [place] Administration Famotidine 20 mg 05/18/20 09:00 06/03/20 08:50 Famotidine 20 Mg Tab PER TUBE 20 mg BID [place] Administration Hydralazine HCl 50 mg 05/30/20 09:19 06/03/20 16:25 Hydralazine 25 Mg Tab PO 50 mg TID [place] Administration Dextrose/Water 1,000 mls @ 0 mls/hr 05/07/20 20:06 05/29/20 22:46 D5w IV 1,000 mls .Q0M PRN Administration Hypoglycemia As Directed Cefepime HCl 2 gm/ Sodium 100 mls @ 200 mls/hr 05/26/20 09:00 06/03/20 08:51 Chloride IVPB 100 mls Q12HR [place] Administration Fentanyl Citrate 2,000 mcg/ 100 mls @ 0 mls/hr 05/30/20 09:15 05/30/20 09:58 Sodium Chloride IV 100 mls INF [place] Administration Protocol Per Protocol Insulin Glargine 30 units/ 0.3 mls @ 0 mls/hr 05/31/20 09:00 06/03/20 09:36 Miscellaneous Medication SC Not Given BID [place] Dextrose/Sodium Chloride 1,000 mls @ 50 mls/hr 06/03/20 10:00 06/03/20 09:59 D5 0.9% Ns IV 1,000 mls .Q20H [place] Administration Insulin Human Lispro 0 units 05/07/20 20:06 06/02/20 16:57 Humalog 300 Units/3 Ml Vial SC 6 unit .BEDTIME SLIDING SC PRN Administration Bedtime Correctional Scale Insulin Human Lispro 0 units 05/18/20 17:45 06/02/20 05:23 Humalog 300 Units/3 Ml Vial SC 6 unit .AGGRESSIVE SLIDING PRN Administration AGGRESSIVE SLIDING SCALE Protocol Labetalol HCl 10 mg 05/07/20 10:55 05/30/20 05:30 Labetalol Hcl 100 Mg/20 Ml Vial SLOW IVP 10 mg Q4H PRN Administration SBP Greater Than 180 Labetalol HCl 100 mg 05/28/20 15:00 06/03/20 16:25 Labetalol 100 Mg Tab PO 100 mg TID [place] Administration Lisinopril 20 mg 05/24/20 09:00 06/03/20 08:51 Lisinopril 20 Mg Tab PO 20 mg DAILY [place] Administration Methylprednisolone Sodium Succinate 40 mg 05/25/20 21:00 06/03/20 08:51 Methylprednisolone Sod Succ 40 Mg Vial IVP 40 mg BID [place] Administration Mometasone Furoate/Formoterol Fumar 2 puff 05/07/20 18:30 06/03/20 08:06 Mometasone 200 Mcg/Formoterol 5 Mcg 120 Puff Inhaler INH 2 puff BID-RT [place] Administration Polyethylene Glycol 17 gm 05/20/20 09:00 06/03/20 08:48 Polyethylene Glycol 3350 17 Gm Packet PER TUBE 17 gm DAILY [place] Administration Propofol 1,000 mg 05/09/20 07:30 06/02/20 02:17 Propofol 1,000 Mg/100 Ml Vial IV 06/08/20 07:30 1,000 mg INF PRN Administration TO ACHIEVE GOAL RASS Protocol Risperidone 1 mg 05/22/20 09:00 06/03/20 08:50 Risperidone 1 Mg Tab PO 1 mg BID [place] Administration Sodium Chloride 10 ml 05/08/20 21:00 06/03/20 08:51 Flush - Normal Saline 10 Ml Syringe IVF 10 ml Q12HR [place] Administration - Exam Eye: PERRL, anicteric sclera Heart: RRR, no murmur, no gallops, no rubs, normal peripheral pulses Respiratory: rales Gastrointestinal: soft, non-tender, non-distended, normal bowel sounds, no palpable masses, no hepatomegaly Extremities: no cyanosis Hosp A/P (1) Acute respiratory failure with hypoxia Code(s): J96.01 - ACUTE RESPIRATORY FAILURE WITH HYPOXIA Status: Acute (2) COVID-19 Code(s): U07.1 - COVID-19 Status: Acute (3) Diabetes mellitus Code(s): E11.9 - TYPE 2 DIABETES MELLITUS WITHOUT COMPLICATIONS Status: Chronic - Plan * Acute respiratory failure due to COVID pneumonia- she is s/p tach and PEG tube * Continue supportive care * Hypoglycemia- She has not been tolerating tube feeding well, with high residuals- will add D5NS * Continue to monitor closely * Agree with screening for LTAC placement
[2020-06-03] MEDS: Atorvastatin Calcium 10 MG TAB PO SCH (20:17)
[2020-06-04 04:43] LABS: Anion Gap 9 mmol/L (10-20); BUN (Urea Nitrogen) 26 mg/dL (9.8-20.1); Calc. Creatinine Clearance 119 mL/min (70-130); Calcium 7.5 mg/dL (7.8-10.44); Carbon Dioxide 35 mmol/L (23-31); Chloride 99 mmol/L (98-107); Estimated GFR-MDRD Greater than 90; Glucose 116 mg/dL (80-115); Potassium 4.5 mmol/L (3.5-5.1); Sodium 138 mmol/L (136-145)
[2020-06-04 04:58] LABS: Band 42 % (5-11); Hemoglobin 7.7 g/dL (12.0-16.0); Lymphocytes 4 % (21-51); MDiff Complete? YES; Mean Corpuscular Hemoglobin 30.7 pg (27.0-31.0); Mean Corpuscular Volume 95.7 fL (78.0-98.0); Mean Platelet Volume 9.6 fL (7.4-10.4); Metamyelocyte 2 % (0-0); Monocytes 3 % (0-10); Myelocyte 4 % (0-0); Neutrophil 45 % (42-75); Platelet Count 181 thou/uL (130-400); RBC Distribution Width 15.8 % (11.5-14.5); Red Blood Cell (RBC) Count 2.52 mill/uL (4.20-5.40); White Blood Cell (WBC) Count 10.1 thou/uL (4.8-10.8)
[2020-06-04] MEDS: Dextrose 5 % And 0.9 % NaCl 1,000 ML IV SCH (05:57)
[2020-06-04] MEDS: Mometasone 200 MCG/Formoterol 5 MCG 120 PUFF INHALER INH SCH ×2 (07:58→18:22)
[2020-06-04] MEDS: PROVENTIL INHALER 6.7 G (200 INHALATIONS) INH SCH ×4 (07:58→23:42)
[2020-06-04] MEDS: Carvedilol 25 MG TAB PO SCH ×2 (09:14→16:47)
[2020-06-04] MEDS: Aspirin 81 mg Enteric Coated Tablet PO SCH (09:14)
[2020-06-04] MEDS: Cefepime 2 GM in Sodium Chloride 0.9% 100 ML IVPB SCH ×2 (09:15→21:23)
[2020-06-04] MEDS: Enoxaparin Sodium 80 MG/0.8 ML SYRINGE SC SCH ×2 (09:15→21:24)
[2020-06-04] MEDS: Lisinopril 20 MG TAB PO SCH (09:17)
[2020-06-04] MEDS: Famotidine 20 MG TAB PER TUBE SCH ×2 (09:17→21:28)
[2020-06-04] MEDS: methylPREDNISolone Sod Succ 40 MG VIAL IVP SCH ×2 (09:18→21:28)
[2020-06-04] MEDS: Polyethylene Glycol 3350 17 GM Packet PER TUBE SCH (09:18)
[2020-06-04] MEDS: hydrALAZINE 25 MG TAB PO SCH ×3 (09:24→21:25)
[2020-06-04] MEDS: Amlodipine 10 MG TAB PO SCH (09:24)
[2020-06-04] MEDS: cloNIDine 0.1 MG TAB PO SCH ×2 (09:24→21:25)
[2020-06-04] MEDS: Labetalol 100 MG TAB PO SCH ×3 (09:25→21:28)
[2020-06-04] MEDS: risperiDONE 1 MG TAB PO SCH ×2 (09:25→21:42)
--- NOTE | 2020-06-04 09:48 | RAD ---
RADIOGRAPH CHEST 1 VIEW: DATE: 06/04/2020 TIME: 5:21 AM HISTORY: 64-year-old female with respiratory distress COMPARISON: 06/03/2020 FINDINGS: No interval change overall, allowing for positional differences, patient is rotated to the right on c urrent study. IMPRESSION: 1) no interval change overall. 2) small left pneumothorax. 3) extensive bilateral infiltrates throughout all lung miller. 4) left-sided chest tube. 5) tracheostomy tube 6) extensive subcutaneous emphysema.
[2020-06-04] MEDS ORDERED: Metoclopramide HCl 10 MG/2 ML VIAL IVP SCH (10:15)
--- NOTE | 2020-06-04 10:17 | PDOC.HOSPP ---
- Subjective Encounter Date: 06/04/20 Encounter Time: 10:15 Subjective: Ms. Watts was seen today in follow-up of COVID pneumonia with respiratory failure. She has had trach and PEG tube placement. She continues to have high residuals with tube feeds. - Objective Vital Signs & Weight: Vital Signs (12 hours) Temp Pulse Resp BP Pulse Ox 06/04/20 09:25 104/64 06/04/20 09:24 104/64 06/04/20 09:17 104/64 06/04/20 08:00 99.0 F 06/04/20 07:59 71 28 H 104/64 96 06/04/20 06:00 28 H 06/04/20 04:00 99.3 F 24 H 06/04/20 02:56 67 06/04/20 02:00 26 H 06/04/20 00:00 100.8 F H 30 H 06/03/20 23:52 140/59 L 06/03/20 23:35 74 140/59 L Weight Admit Weight 156 lb Weight 153 lb 3.54 oz Most Recent Monitor Data Heart Rate from ECG 69 NIBP 134/52 NIBP BP-Mean 79 Respiration from ECG 29 SpO2 92 I&O: 06/03/20 06/04/20 06/05/20 06:59 06:59 06:59 Intake Total 2728 1961 370 Output Total 1200 1130 99 Balance 1528 831 271 Result Diagrams: 06/04/20 04:12 06/04/20 04:12 Additional Labs: Accuchecks 06/04/20 06/04/20 06/04/20 09:39 04:11 02:09 POC Glucose 81 122 H 84 06/03/20 06/03/20 06/03/20 23:55 20:37 18:30 POC Glucose 98 188 H 86 06/03/20 06/03/20 16:02 10:24 POC Glucose 63 L 67 L Hospitalist ROS - Medication Medications: Active Medications Generic Name Dose Route Start Last Admin Trade Name Freq PRN Reason Stop Dose Admin Acetaminophen 650 mg 05/07/20 19:41 05/24/20 03:46 Acetaminophen 325 Mg Tab PO 650 mg Q4H PRN Administration Headache/Fever or Pain Albuterol Sulfate 2 puff 05/07/20 19:00 06/04/20 07:58 Proventil Inhaler 6.7 G (200 Inhalations) INH 2 puff [id number] [place] Administration Amlodipine Besylate 10 mg 05/14/20 09:00 06/04/20 09:24 Amlodipine 10 Mg Tab PO Not Given DAILY [place] Aspirin 81 mg 05/09/20 09:00 06/04/20 09:14 Aspirin 81 Mg Enteric Coated Tablet PO 81 mg DAILY [place] Administration Atorvastatin Calcium 10 mg 05/08/20 21:00 06/03/20 20:17 Atorvastatin Calcium 10 Mg Tab PO 10 mg HS [place] Administration Bisacodyl 10 mg 05/19/20 09:55 05/19/20 11:46 Bisacodyl 10 Mg Supp [place] 10 mg DAILYPRN PRN Administration Constipation Carvedilol 25 mg 05/25/20 17:00 06/04/20 09:14 Carvedilol 25 Mg Tab PO 25 mg BID-WM [place] Administration Clonidine 0.1 mg 05/30/20 21:00 06/04/20 09:24 Clonidine 0.1 Mg Tab PO Not Given BID [place] Dextrose/Water 25 gm 05/07/20 20:06 06/03/20 20:14 Dextrose 50% Abboject 50 Ml Syringe SLOW IVP 25 gm PRN PRN Administration Hypoglycemia Enoxaparin Sodium 70 mg 05/29/20 21:00 06/04/20 09:15 Enoxaparin Sodium 80 Mg/0.8 Ml Syringe SC 70 mg 0900,2100 [place] Administration Famotidine 20 mg 05/18/20 09:00 06/04/20 09:17 Famotidine 20 Mg Tab PER TUBE 20 mg BID [place] Administration Hydralazine HCl 50 mg 05/30/20 09:19 06/04/20 09:24 Hydralazine 25 Mg Tab PO Not Given TID [place] Dextrose/Water 1,000 mls @ 0 mls/hr 05/07/20 20:06 05/29/20 22:46 D5w IV 1,000 mls .Q0M PRN Administration Hypoglycemia As Directed Cefepime HCl 2 gm/ Sodium 100 mls @ 200 mls/hr 05/26/20 09:00 06/04/20 09:15 Chloride IVPB 100 mls Q12HR [place] Administration Fentanyl Citrate 2,000 mcg/ 100 mls @ 0 mls/hr 05/30/20 09:15 05/30/20 09:58 Sodium Chloride IV 100 mls INF [place] Administration Protocol Per Protocol Insulin Glargine 30 units/ 0.3 mls @ 0 mls/hr 05/31/20 09:00 06/03/20 20:18 Miscellaneous Medication SC Not Given BID [place] Insulin Human Lispro 0 units 05/07/20 20:06 06/02/20 16:57 Humalog 300 Units/3 Ml Vial SC 6 unit .BEDTIME SLIDING SC PRN Administration Bedtime Correctional Scale Insulin Human Lispro 0 units 05/18/20 17:45 06/02/20 05:23 Humalog 300 Units/3 Ml Vial SC 6 unit .AGGRESSIVE SLIDING PRN Administration AGGRESSIVE SLIDING SCALE Protocol Labetalol HCl 10 mg 05/07/20 10:55 05/30/20 05:30 Labetalol Hcl 100 Mg/20 Ml Vial SLOW IVP 10 mg Q4H PRN Administration SBP Greater Than 180 Labetalol HCl 100 mg 05/28/20 15:00 06/04/20 09:25 Labetalol 100 Mg Tab PO Not Given TID [place] Lisinopril 20 mg 05/24/20 09:00 06/04/20 09:17 Lisinopril 20 Mg Tab PO 20 mg DAILY [place] Administration Methylprednisolone Sodium Succinate 40 mg 05/25/20 21:00 06/04/20 09:18 Methylprednisolone Sod Succ 40 Mg Vial IVP 40 mg BID [place] Administration Mometasone Furoate/Formoterol Fumar 2 puff 05/07/20 18:30 06/04/20 07:58 Mometasone 200 Mcg/Formoterol 5 Mcg 120 Puff Inhaler INH 2 puff BID-RT [place] Administration Polyethylene Glycol 17 gm 05/20/20 09:00 06/04/20 09:18 Polyethylene Glycol 3350 17 Gm Packet PER TUBE 17 gm DAILY [place] Administration Propofol 1,000 mg 05/09/20 07:30 06/02/20 02:17 Propofol 1,000 Mg/100 Ml Vial IV 06/08/20 07:30 1,000 mg INF PRN Administration TO ACHIEVE GOAL RASS Protocol Risperidone 1 mg 05/22/20 09:00 06/04/20 09:25 Risperidone 1 Mg Tab PO Not Given BID [place] Sodium Chloride 10 ml 05/08/20 21:00 06/04/20 09:25 Flush - Normal Saline 10 Ml Syringe IVF 10 ml Q12HR [place] Administration - Exam Eye: PERRL, anicteric sclera Heart: RRR (+ rales at both bases) Respiratory: rales Gastrointestinal: soft, non-tender, non-distended, normal bowel sounds, no palpable masses, no hepatomegaly Extremities: no cyanosis, 1+ LE edema Hosp A/P (1) Acute respiratory failure with hypoxia Code(s): J96.01 - ACUTE RESPIRATORY FAILURE WITH HYPOXIA Status: Acute (2) COVID-19 Code(s): U07.1 - COVID-19 Status: Acute (3) Diabetes mellitus Code(s): E11.9 - TYPE 2 DIABETES MELLITUS WITHOUT COMPLICATIONS Status: Chronic - Plan * Acute respiratory failure due to COVID pneumonia- she is s/p tach and PEG tube * Continue supportive care and slow wean from the Vent * Add [place] due to high residuals * Hypoglycemia- Will cheange IV fluids to D10W * Continue to monitor closely * Agree with screening for LTAC placement
[2020-06-04] MEDS: Insulin Glargine 30 UNITS in Pre-Filled Syringe 1 EACH SC SCH ×2 (13:20→21:29)
[2020-06-04] MEDS: Dextrose 10% in Water 1,000 ML IV SCH (13:25)
--- NOTE | 2020-06-04 16:23 | RAD ---
RADIOGRAPH CHEST 1 VIEW: DATE: 06/04/2020 TIME: 2:37 PM HISTORY: 64-year-old female in respiratory failure. COMPARISON: 06/04/2020 5:21 AM FINDINGS: There has been interval worsening of now severe subcutaneous emphysema throughout the bilateral chest wall, axilla, and neck. No significant interval change in the small left pneumothorax. Tracheostomy tube and left-sided chest tube remain. No interval change in the very extensive bilateral interstitial-alveolar infiltrates. New finding of what appears to be free air under the right hemidiaphragm. Pneumomediastinum. IMPRESSION: 1) since 5:21 AM this morning, there has been significant interval worsening of the severe subcutaneo us emphysema associated with pneumomediastinum. 2) There is a new finding of what appears to be pneumoperitoneum, presumably related to the above.
[2020-06-04] MEDS: Metoclopramide HCl 10 MG/2 ML VIAL IVP SCH ×2 (16:46→21:26)
--- NOTE | 2020-06-04 18:16 | PRG ---
DATE OF SERVICE: 06/04/2020 OBJECTIVE: VITAL SIGNS: Heart rates in the 60s, blood pressure 117/55, and respiratory rates unchanged. LUNGS: Clear anteriorly. HEART: Regular rhythm. ABDOMEN: Soft. LABORATORY DATA: White count 10.1, hemoglobin 7.7, platelets 181. Sodium 138, potassium 4.5, chloride 99, bicarb 35, BUN 26, creatinine 0.5, glucose 116. IMPRESSION: Respiratory failure with COVID pneumonia, not making much progress at this point. She still has chest tube in. She has severe subcu emphysema both clinically and radiographically. She has free air under her diaphragm that most likely is air that has tracked down from her mediastinum into her abdomen. Check blood gas in the morning, chest x-ray and reassess her, but her prognosis long-term is quite guarded. Her sister is on the other side of the ICU and is equally ill after a similarly long period of time. Job ID: [id number] [id number]
[2020-06-04] MEDS: Atorvastatin Calcium 10 MG TAB PO SCH (21:23)
[2020-06-05 04:01] LABS: ALT (SGPT) 84 U/L (8-55); AST (SGOT) 45 U/L (5-34); Alkaline Phosphatase 100 U/L (40-110); Anion Gap 11 mmol/L (10-20); BUN (Urea Nitrogen) 30 mg/dL (9.8-20.1); Calc. Creatinine Clearance 107 mL/min (70-130); Calcium 7.1 mg/dL (7.8-10.44); Carbon Dioxide 32 mmol/L (23-31); Chloride 99 mmol/L (98-107); Estimated GFR-MDRD Greater than 90; Globulin 3.7 g/dL (2.4-3.5); Glucose 145 mg/dL (80-115); Potassium 3.8 mmol/L (3.5-5.1); Protein, Total 5.7 g/dL (6.0-8.3); Sodium 138 mmol/L (136-145)
[2020-06-05 05:45] LABS: Band 51 % (5-11); Lymphocytes 8 % (21-51); MDiff Complete? YES; Mean Corpuscular HGB CONC 32.5 g/dL (32.0-36.0); Mean Corpuscular Hemoglobin 30.7 pg (27.0-31.0); Mean Corpuscular Volume 94.5 fL (78.0-98.0); Mean Platelet Volume 9.7 fL (7.4-10.4); Monocytes 3 % (0-10); Myelocyte 2 % (0-0); Neutrophil 36 % (42-75); Nucleated RBC 1 % (0); Platelet Count 171 thou/uL (130-400); RBC Distribution Width 15.7 % (11.5-14.5); Red Blood Cell (RBC) Count 2.28 mill/uL (4.20-5.40); White Blood Cell (WBC) Count 9.4 thou/uL (4.8-10.8)
[2020-06-05] MEDS: Dextrose 10% in Water 1,000 ML IV SCH ×2 (05:56→17:30)
[2020-06-05] MEDS: Metoclopramide HCl 10 MG/2 ML VIAL IVP SCH ×2 (05:56→14:34)
[2020-06-05] MEDS: PROVENTIL INHALER 6.7 G (200 INHALATIONS) INH SCH ×2 (06:48→14:26)
[2020-06-05] MEDS: Mometasone 200 MCG/Formoterol 5 MCG 120 PUFF INHALER INH SCH (06:49)
[2020-06-05] MEDS: Insulin Glargine 30 UNITS in Pre-Filled Syringe 1 EACH SC SCH ×2 (09:00→09:36)
--- NOTE | 2020-06-05 09:18 | PDOC.HOSPP ---
- Subjective Encounter Date: 06/05/20 Encounter Time: 09:17 Subjective: Ms. Watts was seen today in follow-up of COVID pneumonia. She has not changed much overnight. - Objective Vital Signs & Weight: Vital Signs (12 hours) Temp Pulse Resp BP 06/05/20 08:00 26 H 06/05/20 06:49 71 145/59 H 06/05/20 06:00 98.4 F 23 H 06/05/20 04:00 22 H 06/05/20 02:12 68 06/05/20 02:00 22 H 06/05/20 01:00 98.2 F 06/04/20 23:51 28 H 06/04/20 22:04 70 06/04/20 22:00 24 H 06/04/20 21:28 70 144/58 H 06/04/20 21:25 68 142/58 H Weight Admit Weight 156 lb Weight 156 lb 8.451 oz Most Recent Monitor Data Heart Rate from ECG 70 NIBP 129/64 NIBP BP-Mean 85 Respiration from ECG 26 SpO2 96 I&O: 06/04/20 06/05/20 06/06/20 06:59 06:59 06:59 Intake Total 1961 1537 120 Output Total 1130 583 90 Balance 831 954 30 Result Diagrams: 06/05/20 03:30 06/05/20 03:30 Additional Labs: Accuchecks 06/04/20 06/04/20 06/04/20 16:07 12:37 09:39 POC Glucose 106 H 92 81 Hospitalist ROS - Medication Medications: Active Medications Generic Name Dose Route Start Last Admin Trade Name Davidq PRN Reason Stop Dose Admin Acetaminophen 650 mg 05/07/20 19:41 05/24/20 03:46 Acetaminophen 325 Mg Tab PO 650 mg Q4H PRN Administration Headache/Fever or Pain Albuterol Sulfate 2 puff 05/07/20 19:00 06/05/20 06:48 Proventil Inhaler 6.7 G (200 Inhalations) INH 2 puff [id number] [place] Administration Amlodipine Besylate 10 mg 05/14/20 09:00 06/04/20 09:24 Amlodipine 10 Mg Tab PO Not Given DAILY [place] Aspirin 81 mg 05/09/20 09:00 06/04/20 09:14 Aspirin 81 Mg Enteric Coated Tablet PO 81 mg DAILY [place] Administration Atorvastatin Calcium 10 mg 05/08/20 21:00 06/04/20 21:23 Atorvastatin Calcium 10 Mg Tab PO 10 mg HS [place] Administration Bisacodyl 10 mg 05/19/20 09:55 05/19/20 11:46 Bisacodyl 10 Mg Supp [place] 10 mg DAILYPRN PRN Administration Constipation Carvedilol 25 mg 05/25/20 17:00 06/04/20 16:47 Carvedilol 25 Mg Tab PO Not Given BID-WM [place] Clonidine 0.1 mg 05/30/20 21:00 06/04/20 21:25 Clonidine 0.1 Mg Tab PO 0.1 mg BID [place] Administration Dextrose/Water 25 gm 05/07/20 20:06 06/03/20 20:14 Dextrose 50% Abboject 50 Ml Syringe SLOW IVP 25 gm PRN PRN Administration Hypoglycemia Enoxaparin Sodium 70 mg 05/29/20 21:00 06/04/20 21:24 Enoxaparin Sodium 80 Mg/0.8 Ml Syringe SC 70 mg 0900,2100 [place] Administration Famotidine 20 mg 05/18/20 09:00 06/04/20 21:28 Famotidine 20 Mg Tab PER TUBE 20 mg BID [place] Administration Hydralazine HCl 50 mg 05/30/20 09:19 06/04/20 21:25 Hydralazine 25 Mg Tab PO 50 mg TID [place] Administration Dextrose/Water 1,000 mls @ 0 mls/hr 05/07/20 20:06 05/29/20 22:46 D5w IV 1,000 mls .Q0M PRN Administration Hypoglycemia As Directed Cefepime HCl 2 gm/ Sodium 100 mls @ 200 mls/hr 05/26/20 09:00 06/04/20 21:23 Chloride IVPB 100 mls Q12HR [place] Administration Fentanyl Citrate 2,000 mcg/ 100 mls @ 0 mls/hr 05/30/20 09:15 05/30/20 09:58 Sodium Chloride IV 100 mls INF [place] Administration Protocol Per Protocol Insulin Glargine 30 units/ 0.3 mls @ 0 mls/hr 05/31/20 09:00 06/04/20 21:29 Miscellaneous Medication SC Not Given BID [place] Dextrose/Water 1,000 mls @ 50 mls/hr 06/04/20 10:15 06/05/20 05:56 Dextrose 10% In Water IV 1,000 mls .Q20H [place] Administration Insulin Human Lispro 0 units 05/07/20 20:06 06/02/20 16:57 Humalog 300 Units/3 Ml Vial SC 6 unit .BEDTIME SLIDING SC PRN Administration Bedtime Correctional Scale Insulin Human Lispro 0 units 05/18/20 17:45 06/02/20 05:23 Humalog 300 Units/3 Ml Vial SC 6 unit .AGGRESSIVE SLIDING PRN Administration AGGRESSIVE SLIDING SCALE Protocol Labetalol HCl 10 mg 05/07/20 10:55 05/30/20 05:30 Labetalol Hcl 100 Mg/20 Ml Vial SLOW IVP 10 mg Q4H PRN Administration SBP Greater Than 180 Labetalol HCl 100 mg 05/28/20 15:00 06/04/20 21:28 Labetalol 100 Mg Tab PO 100 mg TID [place] Administration Lisinopril 20 mg 05/24/20 09:00 06/04/20 09:17 Lisinopril 20 Mg Tab PO 20 mg DAILY [place] Administration Methylprednisolone Sodium Succinate 40 mg 05/25/20 21:00 06/04/20 21:28 Methylprednisolone Sod Succ 40 Mg Vial IVP 40 mg BID [place] Administration Metoclopramide HCl 10 mg 06/04/20 14:00 06/05/20 05:56 Metoclopramide Hcl 10 Mg/2 Ml Vial IVP Not Given Q8HR [place] Mometasone Furoate/Formoterol Fumar 2 puff 05/07/20 18:30 06/05/20 06:49 Mometasone 200 Mcg/Formoterol 5 Mcg 120 Puff Inhaler INH 2 puff BID-RT [place] Administration Polyethylene Glycol 17 gm 05/20/20 09:00 06/04/20 09:18 Polyethylene Glycol 3350 17 Gm Packet PER TUBE 17 gm DAILY [place] Administration Propofol 1,000 mg 05/09/20 07:30 06/02/20 02:17 Propofol 1,000 Mg/100 Ml Vial IV 06/08/20 07:30 1,000 mg INF PRN Administration TO ACHIEVE GOAL RASS Protocol Risperidone 1 mg 05/22/20 09:00 06/04/20 21:42 Risperidone 1 Mg Tab PO 1 mg BID [place] Administration Sodium Chloride 10 ml 05/08/20 21:00 06/04/20 21:26 Flush - Normal Saline 10 Ml Syringe IVF 10 ml Q12HR [place] Administration - Exam Eye: PERRL Eye - other findings: + perioral edema Heart: RRR, no murmur, no gallops, no rubs, normal peripheral pulses Respiratory: no wheezes, no ronchi, rales (+ rales throughout) Gastrointestinal: soft (bowel sounds are diminished), non-distended, normal bowel sounds Extremities: 2+ LE edema Hosp A/P (1) Acute respiratory failure with hypoxia Code(s): J96.01 - ACUTE RESPIRATORY FAILURE WITH HYPOXIA Status: Acute (2) COVID-19 Code(s): U07.1 - COVID-19 Status: Acute (3) Diabetes mellitus Code(s): E11.9 - TYPE 2 DIABETES MELLITUS WITHOUT COMPLICATIONS Status: Chronic - Plan * Acute respiratory failure due to COVID pneumonia- she is s/p tach and PEG tube * Continue supportive care and slow wean from the Vent * Continue Reglan * Hypoglycemia- Will continue D10 * Continue to monitor closely * Agree with screening for LTAC placement * Prognosis is guarded
[2020-06-05] MEDS: Enoxaparin Sodium 80 MG/0.8 ML SYRINGE SC SCH (09:29)
[2020-06-05] MEDS: Lisinopril 20 MG TAB PO SCH (09:33)
[2020-06-05] MEDS: Famotidine 20 MG TAB PER TUBE SCH (09:33)
[2020-06-05] MEDS: Aspirin 81 mg Enteric Coated Tablet PO SCH (09:34)
[2020-06-05] MEDS: cloNIDine 0.1 MG TAB PO SCH (09:34)
[2020-06-05] MEDS: hydrALAZINE 25 MG TAB PO SCH ×2 (09:34→14:36)
[2020-06-05] MEDS: risperiDONE 1 MG TAB PO SCH (09:34)
[2020-06-05] MEDS: Carvedilol 25 MG TAB PO SCH ×2 (09:34→17:30)
[2020-06-05] MEDS: Cefepime 2 GM in Sodium Chloride 0.9% 100 ML IVPB SCH (09:35)
[2020-06-05] MEDS: Labetalol 100 MG TAB PO SCH ×2 (09:35→14:36)
[2020-06-05] MEDS: Amlodipine 10 MG TAB PO SCH (09:35)
[2020-06-05] MEDS: Polyethylene Glycol 3350 17 GM Packet PER TUBE SCH (09:37)
[2020-06-05] MEDS: methylPREDNISolone Sod Succ 40 MG VIAL IVP SCH (09:40)
--- NOTE | 2020-06-05 09:46 | RAD ---
PORTABLE CHEST: Date: 06/05/2020 HISTORY: Respiratory distress. COMPARISON: 06/04/2020 exam. FINDINGS: Tracheostomy tube remains in place. Heart size is borderline. Left chest tube remains in place. There appears to be a small left-sided pneumothorax present. There is extensive subcutaneous emphysema ove r the chest. Parenchymal lung changes appear similar to the previous exam. IMPRESSION: Essentially stable exam. POS: OFF
[2020-06-05 14:29] VITALS: BP 143/57
[2020-06-05 16:34] VITALS: TEMP 99.6
--- NOTE | 2020-06-05 17:01 | PRG ---
DATE OF SERVICE: 06/05/2020 SUBJECTIVE: Bhakti Watts remains mechanically ventilated. OBJECTIVE: VITAL SIGNS: Heart rates in 70s, blood pressure 142/57, FiO2 is at 55. LUNGS: Clear. HEART: Regular rhythm. ABDOMEN: Soft. LABORATORY DATA: White count 9.4, hemoglobin 7.0, platelets 171. Sodium 138, potassium 3.8, chloride 99, bicarb 32, BUN 30, creatinine 0.57, glucose 145. IMPRESSION: 1. COVID pneumonia, respiratory failure. 2. Encephalopathy. Her altered mental status prevents easy weaning. She still has significant gas exchange abnormalities, significant radiographic abnormalities, and now has dramatic increase in her subcutaneous air. much progress with her. Job ID: [id number]
--- NOTE | 2020-06-06 13:44 | DIS ---
DATE OF ADMISSION: 05/07/2020 DATE OF DISCHARGE: 06/05/2020 DATE OF : 06/05/2020 DIAGNOSES: 1. Acute respiratory failure with hypoxemia. 2. COVID-19 pneumonia. 3. Hypertension. 4. Diabetes mellitus. IMAGING DONE DURING THE HOSPITAL STAY: The patient had a CT angiogram of the chest, which showed very extensive severe bilateral infiltrates, evidence of severe COVID-19 pneumonia. There was no evidence of pulmonary embolism. HOSPITAL COURSE: Ms. Watts was a 64-year-old female with a history of hypertension and diabetes mellitus. She unfortunately contracted COVID-19 viral infection. She developed respiratory failure as a result. She required intubation during the hospital stay. She developed a pneumothorax, which required chest tube placement. She was placed on IV Decadron as well as IV antibiotics and ultimately required tracheostomy and PEG tube placement due to the length of time that she was intubated. Unfortunately, despite all efforts, she was never weanable and never clinically improved and in fact, her clinical course slowly declined over time and as a result despite this the family made the decision to change her code status to DNR. She declined despite mechanical intubation and as a result of severe COVID-19 infection. Job ID: [id number]
== END 2020-06-05 20:25 | disposition expired | DRG 4 ==
LOC: ERS 07:40 → ERHOLD 09:27 → IMCU/EMU 14:11 → CCU 05-09 05:44
PROVIDERS: ADMIT Student in an Organized Health Care Education/Training Program; ATTEND Internal Medicine
PROC: 5A09457 Assistance with Respiratory Ventilation, 24-96 Consecutive Hours, Continuous Positive Airway Pressure (ICD-10-PCS; 2020-05-07)
PROC: XW13325 Transfusion of Convalescent Plasma (Nonautologous) into Peripheral Vein, Percutaneous Approach, New Technology Group 5 (ICD-10-PCS; 2020-05-07)
PROC: 8E0ZXY6 Isolation (ICD-10-PCS; 2020-05-07)
PROC: XW033E5 Introduction of Remdesivir Anti-infective into Peripheral Vein, Percutaneous Approach, New Technology Group 5 (ICD-10-PCS; 2020-05-07)
PROC: XW033E5 Introduction of Remdesivir Anti-infective into Peripheral Vein, Percutaneous Approach, New Technology Group 5 (ICD-10-PCS; 2020-05-08)
PROC: 5A1955Z Respiratory Ventilation, Greater than 96 Consecutive Hours (ICD-10-PCS; 2020-05-09)
PROC: 0BH17EZ Insertion of Endotracheal Airway into Trachea, Via Natural or Artificial Opening (ICD-10-PCS; 2020-05-09)
PROC: XW033E5 Introduction of Remdesivir Anti-infective into Peripheral Vein, Percutaneous Approach, New Technology Group 5 (ICD-10-PCS; 2020-05-09)
PROC: XW033E5 Introduction of Remdesivir Anti-infective into Peripheral Vein, Percutaneous Approach, New Technology Group 5 (ICD-10-PCS; 2020-05-10)
PROC: XW033E5 Introduction of Remdesivir Anti-infective into Peripheral Vein, Percutaneous Approach, New Technology Group 5 (ICD-10-PCS; 2020-05-11)
PROC: 0W9B30Z Drainage of Left Pleural Cavity with Drainage Device, Percutaneous Approach (ICD-10-PCS; 2020-05-24)
PROC: 0B113F4 Bypass Trachea to Cutaneous with Tracheostomy Device, Percutaneous Approach (ICD-10-PCS; principal; 2020-05-29)
PROC: 0DH64UZ Insertion of Feeding Device into Stomach, Percutaneous Endoscopic Approach (ICD-10-PCS; 2020-05-29)
DX: A41.89 Other specified sepsis (principal); U07.1 COVID-19; J12.89 Other viral pneumonia; J96.01 Acute respiratory failure with hypoxia; G93.41 Metabolic encephalopathy; R65.21 Severe sepsis with septic shock; I47.1 Supraventricular tachycardia; E87.0 Hyperosmolality and hypernatremia; J93.83 Other pneumothorax; I10 Essential (primary) hypertension; E66.9 Obesity, unspecified; I16.0 Hypertensive urgency; E78.5 Hyperlipidemia, unspecified; F41.9 Anxiety disorder, unspecified; Z98.51 Tubal ligation status; Z68.28 Body mass index [BMI] 28.0-28.9, adult; Z88.8 Allergy status to other drugs, medicaments and biological substances; R53.81 Other malaise; E87.8 Other disorders of electrolyte and fluid balance, not elsewhere classified; Z51.5 Encounter for palliative care; K59.00 Constipation, unspecified; E11.649 Type 2 diabetes mellitus with hypoglycemia without coma; E78.00 Pure hypercholesterolemia, unspecified; D64.9 Anemia, unspecified
CPT/HCPCS: 36415; 36416; 36430; 71045; 71275; 80048; 80053; 80076; 82805; 83605; 83880; 84484; 85007; 85025; 85027; 85379; 85610; 85652; 85730; 86140; 86850; 86900; 86901; 87040; 87070; 87205; 87635; 94002; 94003; 94660; 96365; 96366; 96368; 96372; 96375; J0456; J0692; J0696; J1100; J1265; J1650; J1815; J1885; J2060; J2704; J2765; J2920; J3010; J3475; J3490; J7050; P9017; Q9967; S0028; U0003